=== PATIENT | female | born 1945 | race Caucasian/White ===

== ENCOUNTER 2018-11-03 18:50 | Inpatient (IN) | payer OTHER, SELFPAY ==
[2018-11-03 18:56] VITALS: BP 119/63; PULSE 122; RESP 18; TEMP 37.7; O2SAT 94
[2018-11-03 19:10] VITALS: O2SAT 94
--- NOTE | 2018-11-03 19:31 | W.ED.GENAD ---
Discharge Plan Disposition Patient Disposition: [facility] INPATIENT Condition: Serious Discharge Details Chief Complaint: Fever Clinical Impression: Pneumonia, Sepsis, Immunosuppression Primary Care Provider: Bertha,Local ED Provider: Tom Katz Home Meds and New Rx's Prescriptions: No Action Jakafi 10 mg Tablet 10 mg PO BID RF: 0 montelukast [Singulair] 10 mg Tablet 10 mg PO DAILY RF: 0 Symbicort 160-4.5 mcg/actuation Hfa Aerosol Inhaler 1 puff INHALATION BID RF: 0 Flovent HFA 110 mcg/actuation Hfa Aerosol Inhaler 2 puff INHALATION DAILY RF: 0 azithromycin 250 mg Tablet PO DAILY RF: 0 acyclovir 200 mg Capsule PO BID RF: 0 pravastatin 10 mg Tablet 10 mg PO DAILY RF: 0 potassium chloride 20 mEq Tablet Extended Release 10 meq PO BID RF: 0 erythromycin 5 mg/gram (0.5 %) Ointment ophthalmic (eye) DAILY RF: 0 Xiidra 5 % Dropperette 1 drp ophthalmic (eye) BID RF: 0 Fish Oil Retainplus Leonel 3 Adv RF: 0 Serum Eye Drops RF: 0 clobetasol 0.05 % Gel TOPICAL PRNRF: 0 triamcinolone acetonide 0.1 % Cream 1 applic TOPICAL PRN PRNRF: 0 carmustine 100 mg Recon Soln DAILY RF: 0 estradiol [Yuvafem] 10 mcg Tablet 10 mcg VAGINAL DIRECTED RF: 0 fluconazole 100 mg Tablet PO PRN PRNRF: 0 mupirocin 2 % Ointment 1 applic TOPICAL PRN PRNRF: 0 ondansetron HCl [Zofran] 4 mg Tablet PO PRN PRNRF: 0 benzonatate [Tessalon Perles] 100 mg Capsule 100 mg PO PRN PRNRF: 0 Medical Decision Making 20:22 --73-year-old female with history of cutaneous T-cell lymphoma, 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 Patient has no nuchal rigidity or signs of meningitis. Will check flu swab. Consider pneumonia and will check chest x-ray. Consider urinary tract infection, will check urinalysis. Patient is tachycardic. Normotensive. Will give IVF fulid bolus. --Labs reviewed and nondiagnostic. Mild leukocytosis of 10.83. Normal lactic acid. Mild elevation of LFTs which patient notes is chronic. Urinalysis is not consistent with UTI. Chest x-ray was reviewed and interpreted by radiology: Questionable hazy opacifications in the posterior lower lung seen only on the lateral view raise concern for possibility of developing airspace disease. Given these findings, and immunosuppression and presentation will give broad spectrum coverage for PNA with cefepime and levaquin. --Patient complaining of left shoulder pain which is been ongoing for some time but suddenly worse here tonight. ECG was reviewed and interpreted by me: Sinus tachycardia 102 bpm, short DC with DC interval of 118, normal axis, ST depressions are noted inferior laterally leads II, 3, aVF, V4 to V6. No old ECG immediately available for comparison. I will send a troponin. Given tachycardia, chest pain, and cancer hx, consider PE. Patient apparently has had a contrast dye allergy that included mild rash in the past. She subsequently had CT with contrast that did not result in any allergic reaction. There is no prep done for this more recent CT. I discussed her current presentation and benefits of CT imaging versus risks of contrast dye allergy and she provides informed consent to proceed with CT with contrast. Patient has allergy to Benadryl but is currently on prednisone. --Obtained outside hospital ECG from [facility] dated 08/05/2018, there is significant artifact but appears to be ST depressions in leads II, III, aVF and laterally V4 to V6. 23:35 --CT interpreted by radiology: IMPRESSION: 1. Scattered multifocal airspace disease which may be related to an atypical infectious pneumonic process in the appropriate clinical setting. Scattered areas of focal pneumonitis would also be in the differential. 2. Additionally, there are scattered more nodular like opacities seen throughout the lungs, detailed above, measuring up to 9 mm. Although these are most likely related to underlying airspace disease, followup is recommended to assess for resolution. For patients at low risk (minimal or absent history of smoking and of other known risk factors), recommend CT at 3-6 months, then consider CT at 18-24 months. For patients at high risk (history of smoking or of other known risk factors), recommend CT at 3-6 months, then CT at 18-24 months. (Pretty et al., Fleischner Society, 2017) 3. Other incidental findings as detailed above. I have paged patient's oncologist at [facility] - Dr. Summers. [phone]. 23:52 -- Patient reassessed. Has had some nausea. IV abx infusing. All results and plan reviewed with patient. Patient complaining of persistent left shoulder pain. Now agreeable to analgesia - will give diluadid 0.5mg IV. 23:59 -- No return call from patient's oncologist. I discussed case again with hospitalist - discussed ED presentation and course, he will admit the patient to the ICU and continue treatment for PNA/sepsis. Oncology consultation pending at time of admission. Care tranistioned to Dr. Faulkner. HPI General Mode of arrival: ambulatory. Date/Time Provider Initiated Documentation: 11/03/18 18:56. Limitations to Documentation: no limitations. Information obtained by: patient. 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 Patient notes fever since this morning. Fevers been moderate. She has associated myalgias and headache. She has been feeling generally unwell past couple days. She does note chronic cough. No dysuria. No abdominal pain. Patient has had no recent tick bites. Related Data Home Medications Medication Instructions Recorded Confirmed Fish Oil Retainplus Leonel 3 Adv 11/03/18 Serum Eye Drops 11/03/18 acyclovir mg PO BID 11/03/18 azithromycin mg PO DAILY 11/03/18 benzonatate [Tessalon Perles] 100 mg PO PRN PRN 11/03/18 11/03/18 budesonide-formoterol [Symbicort] 1 puff INHALATION BID 11/03/18 11/03/18 carmustine mg DAILY 11/03/18 clobetasol TOPICAL PRN 11/03/18 erythromycin OPHTHALMIC (EYE) DAILY 11/03/18 estradiol [Yuvafem] 10 mcg VAGINAL DIRECTED 11/03/18 11/03/18 fluconazole mg PO PRN PRN 11/03/18 fluticasone propionate [Flovent 2 puff INHALATION DAILY 11/03/18 11/03/18 HFA] lifitegrast [Xiidra] 1 drp OPHTHALMIC (EYE) BID 11/03/18 11/03/18 montelukast [Singulair] 10 mg PO DAILY 11/03/18 11/03/18 mupirocin 1 applic TOPICAL PRN PRN 11/03/18 11/03/18 ondansetron HCl [Zofran] mg PO PRN PRN 11/03/18 potassium chloride 10 meq PO BID 11/03/18 11/03/18 pravastatin 10 mg PO DAILY 11/03/18 11/03/18 ruxolitinib [Jakafi] 10 mg PO BID 11/03/18 11/03/18 triamcinolone acetonide 1 applic TOPICAL PRN PRN 11/03/18 11/03/18 Allergies Allergy/AdvReac Type Severity Reaction Status Date / Time diphenhydramine AdvReac Mild Skin Rash Unverified 11/03/18 19:06 [From Benadryl] Iodinated Contrast Media AdvReac Mild Skin Rash Unverified 11/03/18 19:06 Penicillins AdvReac Mild Skin Rash Unverified 11/03/18 19:06 General Stated Complaint: Fever FORTUNATO: 3 Review of Systems Review of Systems ROS Unobtainable: All systems reviewed & are unremarkable except as noted in HPI and below Constitutional Constitutional: Reports body ache(s) and Reports fever(s) Cardiovascular Cardiovascular: Denies dyspnea Respiratory Respiratory: Reports cough and Denies dyspnea Gastrointestinal Gastrointestinal: Denies abdominal pain Integumentary/Breasts Skin/Breast: Reports rash (Chronic unchanged) [facility] Social History Smoking/Tobacco Use Status: Never Alcohol Intake: never Substance use type: former substance user Do you feel safe at home: Yes Do you feel safe in your relationship?: Yes Exam Const General: cooperative and no acute distress HENMT Mouth: mucous membranes dry Eyes Conjunctivae: normal conjunctivae Sclera: normal sclerae Neck Neck: full ROM, no meningeal signs, trachea midline and supple Resp Auscultation: clear to auscultation bilaterally, no rales, no rhonchi and no wheezes Cardio Jugular venous pressure: no JVD Rate: tachycardic Rhythm: regular rhythm GI Palpation: soft, not firm, no guarding, no masses, not rigid and nontender Skin Rashes: rashes noted (Patchy erythema lower extremity is a patient notes is chronic) Neuro General: alert, awake and tone normal Extrem General: no edema Psych Appearance: grossly normal Mental Status: mental status grossly normal Course Vital Signs Vital signs: Vital Signs Temperature 37.7 C H 11/03/18 18:56 Pulse 122 H 11/03/18 18:56 Respiratory Rate 18 11/03/18 18:56 Blood Pressure 119/63 11/03/18 18:56 Pulse Oximetry 94 L 11/03/18 18:56 Temperature 37.7 C H 11/03/18 18:56 Temperature Source Oral 11/03/18 18:56 Pulse 122 H 11/03/18 18:56 Respiratory Rate 18 11/03/18 18:56 Blood Pressure 119/63 11/03/18 18:56 Blood Pressure Position Sitting 11/03/18 18:56 Pulse Oximetry 94 L 11/03/18 19:10 Oxygen Delivery Method Nasal Cannula 11/03/18 19:10 Oxygen Flow Rate 2 11/03/18 19:10 Pain Level 8 11/03/18 18:56
[2018-11-03 19:47] LABS: Bilirubin Negative (Negative); Blood Trace-intact (Negative); Clarity Clear (Clear); Glucose Negative (Negative); Ketones Negative (Negative); Leukocyte Esterase Negative (Negative); Nitrite Negative (Negative); Specific Gravity 1.015 (1.005-1.025); Urobilinogen 0.2 EU/dL (Up TO 0.2); pH 7.5 (5-8)
[2018-11-03] MEDS: Normal Saline Flush 10 ML SYR IVP (19:50)
[2018-11-03 19:56] LABS: Bacteria Negative HPF (Negative); C & S Indicated? No; Casts Negative LPF (Negative); Crystals Negative HPF (Negative); Epithelial Cells Rare HPF (Negative); Mucus Negative (Negative); RBC 0-2 (0-2); WBC 0-2 HPF (0-5)
[2018-11-03] MEDS: Normal Saline 500 ML 1000 ML IV (19:59)
[2018-11-03 20:01] LABS: Lactate 0.8 mmol/L (0.6-1.4)
[2018-11-03 20:04] LABS: Abs Immature Grans 0.03 k/cumm (0.0-0.09); Absolute Basophil Count 0.02 k/cumm (0.0-0.2); Absolute Eosinophil Count 0.12 k/cumm (0.0-0.7); Absolute Lymphocyte Count 0.91 k/cumm (1.2-3.4); Absolute Monocyte Count 1.04 k/cumm (0.11-0.7); Absolute Neutrophil Count 8.71 k/cumm (1.2-6.7); Basophils % 0.2; Eosinophils % 1.1; HCT 38.3 % (36.0-46.0); HGB 12.5 g/dL (12.0-15.5); Immature Grans % 0.3; Lymphocytes % 8.4; Mean Corp. HGB Concentration 32.6 g/dL (32.0-36.0); Mean Corpuscular Hemoglobin 30.5 pg (27.0-33.0); Mean Corpuscular Volume 93.4 fL (80-95); Monocytes % 9.6; Neutrophils % 80.4; Platelet Count 386 x1000/uL (130-400); RBC Distribution Width 21.3 % (11.7-14.6); White Blood Cell Count 10.83 k/cumm (4.4-10.8)
[2018-11-03 20:22] LABS: ALT 71 U/L (14-59); AST 46 U/L (15-37); Albumin 3.9 g/dL (3.4-5.0); Alkaline Phosphatase 157 U/L (46-116); Anion Gap 8.7 mmol/L (3-11); BUN 12 mg/dL (7-18); Bilirubin, Total 0.7 mg/dL (0.2-1.0); CO2 28.3 mmol/L (21.0-32.0); Calcium 9.1 mg/dL (8.5-10.1); Chloride 101 mmol/L (98-107); Estimated GFR 54.35 (mL/min/1.73m2); Glucose 115 mg/dL (70-100); Potassium 3.5 mmol/L (3.5-5.1); Sodium 138 mmol/L (136-145); Total Protein 7.8 g/dL (6.4-8.2)
[2018-11-03 20:24] LABS: Anisocytosis 2+; Hypochromasia 1+; Polychromasia Present
--- NOTE | 2018-11-03 20:45 | DI.RAD_ITS ---
EXAM: XR CHEST 2V PA LATERAL CLINICAL HISTORY: COUGH, FEVER TECHNIQUE: 2D digital imaging was performed. COMPARISON: None. FINDINGS: LUNGS: Clear. No pleural abnormality seen. HEART: Normal. MEDIASTINUM: Normal. OTHER FINDINGS:Normal. IMPRESSION: No acute pulmonary findings.
--- NOTE | 2018-11-03 20:57 | DI.VRAD_ITS ---
EXAM: XR Chest, 2 Views EXAM DATE/TIME: 11/03/2018 7:32 PM CLINICAL HISTORY: 73 years old, female; Cough and fever; Patient HX: Cough, fever, stem cell transplant patient TECHNIQUE: Imaging protocol: XR of the chest Views: 2 views. COMPARISON: No relevant prior studies available. FINDINGS: Lungs: COPD/emphysema is suggested. Questionable hazy opacifications in the posterior/lower lungs seen only on the lateral view. No other significant acute interstitial or airspace disease is noted. Pleural space: Unremarkable. No pleural effusion. No pneumothorax. Heart/Mediastinum: Unremarkable. No cardiomegaly. Bones/joints: No acute skeletal abnormality. IMPRESSION: Questionable hazy opacifications in the posterior/lower lungs seen only on the lateral view raise concern for the possibility of developing airspace disease. Dictated and Authenticated by: Thuan Mccarthy MD. Ordering:TORRI Santos MD
[2018-11-03 21:09] VITALS: BP 113/47; PULSE 102; RESP 16; TEMP 38.2; O2SAT 98
--- NOTE | 2018-11-03 21:33 | DI.CT_ITS ---
EXAM: CT CHEST PE CTA CLINICAL HISTORY: CHEST PAIN, SOB, TACHYCARDIA, LYMPHOMA TECHNIQUE: CT angiography was performed with multi slice acquisition and multi planar and 3D reconst ruction. CT angiography of the chest was performed with a bolus infusion of 57 cc of Omnipaque 350. COMPARISON: No exams were available for comparison FINDINGS: Images obtained through the upper abdomen show unremarkable appearance of visualized portions of live r, spleen, pancreas, adrenals and kidneys. No thoracic aortic aneurysm or dissection. No evidence o f pulmonary embolic disease. No mediastinal hilar or axillary or supraclavicular adenopathy. There are multiple focal areas of intrapulmonary ground-glass opacity particularly in the upper lobes but involving all lobes and there are areas of apparent focal consolidation seen involving both lowe r lobes suspicious for acute pneumonia. Some of these consolidative radiodensities are vaguely nodul ar in appearance and the possibility of underlying mass is not excluded. There is focal area of cons olidation seen adjacent to the posterior cardiac border in the left lower lobe, again a mass is not e xcluded at this site. Multiple smaller pulmonary nodules are also identified bilaterally. No pleura l effusion seen. IMPRESSION: No evidence of pulmonary embolic disease. Multiple areas of ground glass and consolidative air space opacity, suspect pneumonia. Underlying onofre plastic disease not excluded, particularly in a patient with a history of lymphoma. Follow up chest C T suggested after treatment.
[2018-11-03] MEDS: CEFEPIME 2 GM in Normal Saline 100 ML IVPB (22:10)
[2018-11-03 22:23] LABS: Creatine Kinase 135 U/L (26-192)
[2018-11-03 22:24] LABS: Troponin I < 0.05 ng/mL (0.00-0.06)
[2018-11-03 22:30] VITALS: BP 117/49; PULSE 106; RESP 20; TEMP 38.3; O2SAT 96
[2018-11-03] MEDS: Omnipaque 350 MG/ML 100 ML BTL IJ (22:36)
--- NOTE | 2018-11-03 22:53 | DI.VRAD_ITS ---
EXAM: CT Angiography Chest With Contrast EXAM DATE/TIME: 11/03/2018 9:34 PM CLINICAL HISTORY: 73 years old, female; Shortness of breath; Patient HX: Chest pain, SOB, tachycardia; Additional info: Lymphoma 12 years ago; Stem cell transplant 2y ago TECHNIQUE: Imaging protocol: Computed tomographic angiography of the chest with intravenous contrast. 3D rendering: MIP reconstructed images were created and reviewed. COMPARISON: CR XR CHEST 2V PA LATERAL 11/03/2018 8:38 PM FINDINGS: Pulmonary arteries: Normal. No pulmonary emboli. Aorta: Unremarkable. No aortic aneurysm. No aortic dissection. Lungs: Airspace consolidation in the left lower lobe. Scattered patchy/groundglass airspace opacities are appreciated in the bilateral lower lobes, right middle lobe, lingula, and bilateral upper lobes. More focal nodular opacities are seen in the right lower lobe on image 70 series 9 measuring up to 9 mm and in the left lower lobe on image 79 series 9 measuring up to 5 mm. As another example, a focal nodular opacity measuring 7.6 mm is appreciated in the right middle lobe on image 67 series 9. Pleural space: Unremarkable. No pneumothorax. No pleural effusion. Heart: Unremarkable. No cardiomegaly. No pericardial effusion. Lymph nodes: Unremarkable. No enlarged lymph nodes. Bones/joints: No acute abnormality or aggressive osseous lesion. Soft tissues: Nonspecific calcified nodule in the left breast measuring approximately 1.6 cm. Correlation with mammography is recommended if not already performed. Other findings: The visualized intra-abdominal structures demonstrate no acute findings. IMPRESSION: 1. Scattered multifocal airspace disease which may be related to an atypical infectious pneumonic process in the appropriate clinical setting. Scattered areas of focal pneumonitis would also be in the differential. 2. Additionally, there are scattered more nodular like opacities seen throughout the lungs, detailed above, measuring up to 9 mm. Although these are most likely related to underlying airspace disease, followup is recommended to assess for resolution. For patients at low risk (minimal or absent history of smoking and of other known risk factors), recommend CT at 3-6 months, then consider CT at 18-24 months. For patients at high risk (history of smoking or of other known risk factors), recommend CT at 3-6 months, then CT at 18-24 months. (Pretty et al., Fleischner Society, 2017) 3. Other incidental findings as detailed above. Dictated and Authenticated by: Thuan Mccarthy MD. Ordering:TORRI Santos MD
[2018-11-03] MEDS: levoFLOXacin 750 MG/150 ML BAG 100 MG IVPB (23:20)
[2018-11-03 23:55] VITALS: BP 102/48; PULSE 107; RESP 18; TEMP 38.3; O2SAT 92
--- NOTE | 2018-11-03 23:59 | HPE_ITS ---
Date of service: 11/03/18 Time of Service: 23:59 Assessment and Plan Assessment and plan (1) Community acquired pneumonia: Status: Acute Assessment and plan: in light of her chronic immunosuppresion and presentation w/ borderline hypotension and tachycardia suggestive of sepsis; she will be kept on broad spectrum antibiotics including Levaquin and Cefepime. I would not add Vancomycin unless we have demonstrated Staph. I will keep her on oxygen and aerosolized bronchodilators. She declined use of steroids. 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 With her elevated LFT she may even have some liver involvement as well. Qualifiers: Lymphoma site: lower extremity Qualified Code(s): C84.A5 - Cutaneous T- cell lymphoma, unspecified, lymph nodes of inguinal region and lower limb (3) Elevated transaminase level: Status: Acute Assessment and plan: may be drug related to the Jakafi or may be from T cell lymphoma. Will get US of her liver in the a.m. Further discussion can be made between her oncologist and the day hospitalist in the a.m. 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 [facility] [place] [facility] Mar[facility]. The patient and her are originally from [place] and she initially was treated at [facility] when she was diagnosed 14 yr prior but [facility] and has her [facility] cell transplant 2 yrs ago. She and her rigoberto ledezma in [place], [place] during the pickard. Today developed body aches and fever and rigors. Fever up to 101.5 along w/ chills and rigors and pleuritic left shoulder pains and dyspnea. She denies any dysuria or hematuria or abdominal pains although she has been nauseated today. 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 Workup in the ER included CXR that demonstrated questionable opacifications in the posterior/lower lungs seen on lateral CXR. Subsequent CTA of the chest did not show any PE but demonstrated airspace consolidation in the LLL and scattered patchy groundglass airspace opacities in the bilateral lower lobes, RML, lingula and bilateral upper lobes w/ more focal nodular opacities seen in the RLL and LLL and RML. She has no pleural effusions, pericardial effusions nor cardiomegaly. Labs were remarkable for leukocytosis of 10,830, no anemia, CMP with normal electrolytes and renal function but elevated LFT w/ AST 46, AST 71 and alkaline phosphatase of 157. Her lactate is normal at 0.8. UA was unremarkable (negative for nitrites, leukocyte esterase and bacteria, protein or ketones). Blood cultures were obtained and the patient was begun on Levaquin 750 mg IV and Cefepime [address] Katz attempted to reach the patient's oncologist at [facility] but did not receive a call back from Dr. Summers. The patient is also being followed locally at [facility] by Dr. Olga Patel and the patient receives photopharesis of her blood twice a week at [facility]. She returns to [place] monthly for follow up with her oncologist. The patient is now being admitted for treatment of pneumonia and possible sepsis. I advised the patient that I was adding short course of corticosteriods to her antibiotic treatment for possible sepsis but she declined to receive any steroids d/t problems she had with tapering of prednisone and from steroid induced DM. Review of Systems Constitutional Constitutional: Reports body ache(s), Reports fatigue, Reports fever(s), Reports headache(s), Reports malaise and Reports poor appetite Eyes Eyes: Reports system reviewed and no additional complaints, except as docu ENT Ears, Nose, Mouth, and Throat: Reports system reviewed and no additional complaints, except as docu and Reports headache(s) Cardiovascular Cardiovascular: Reports system reviewed and no additional complaints, except as docu Respiratory Respiratory: Reports as per HPI Gastrointestinal Gastrointestinal: Reports as per HPI Genitourinary Genitourinary: Reports system reviewed and no additional complaints, except as docu Musculoskeletal Musculoskeletal: Reports radiating pain into limb (left shoulder pains; worse w/ cough and deep breathing) Integumentary/Breasts Skin/Breast: Reports rash and Reports unusual bruising Neurologic Neurologic: Reports system reviewed and no additional complaints, except as docu and Reports headache(s) Psychiatric Psychiatric: Reports system reviewed and no additional complaints, except as docu Endocrine Endocrine: Reports system reviewed and no additional complaints, except as docu and Reports fatigue Hematologic/Lymphatic Hematologic/Lymphatic: Reports easy bruising Allergic/Immunologic Allergic/Immunologic: Reports system reviewed and no additional complaints, exce pt as docu PFSH Medical History (Updated 11/04/18 @ 03:19 by Mina Faulkner) Cutaneous T-cell lymphoma (Acute) 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 [id number]-vqik disease complicating stem cell transplant (Acute) PAF (paroxysmal atrial fibrillation) (Acute) TIA (transient ischemic attack) (Acute) Surgical History (Updated 11/04/18 @ 03:10 by Mina Faulkner) H/O stem cell transplant (Acute) Social History Smoking/Tobacco Use Status: Never Alcohol Intake: never Substance use type: former substance user Do you feel safe at home: Yes Do you feel safe in your relationship?: Yes Meds Home Medications and Allergies Home Medications Medication Instructions Recorded Confirmed Type Fish Oil Retainplus Leonel 3 Adv 11/03/18 History Serum Eye Drops 11/03/18 History acyclovir mg PO BID 11/03/18 History azithromycin mg PO DAILY 11/03/18 History benzonatate [Tessalon Perles] 100 mg PO PRN PRN 11/03/18 11/03/18 History budesonide-formoterol [Symbicort] 1 puff INHALATION BID 11/03/18 11/03/18 History carmustine mg DAILY 11/03/18 History clobetasol TOPICAL PRN 11/03/18 History erythromycin OPHTHALMIC (EYE) DAILY 11/03/18 History estradiol [Yuvafem] 10 mcg VAGINAL DIRECTED 11/03/18 11/03/18 History fluconazole mg PO PRN PRN 11/03/18 History fluticasone propionate [Flovent 2 puff INHALATION DAILY 11/03/18 11/03/18 History HFA] lifitegrast [Xiidra] 1 drp OPHTHALMIC (EYE) BID 11/03/18 11/03/18 History montelukast [Singulair] 10 mg PO DAILY 11/03/18 11/03/18 History mupirocin 1 applic TOPICAL PRN PRN 11/03/18 11/03/18 History ondansetron HCl [Zofran] mg PO PRN PRN 11/03/18 History potassium chloride 10 meq PO BID 11/03/18 11/03/18 History pravastatin 10 mg PO DAILY 11/03/18 11/03/18 History ruxolitinib [Jakafi] 10 mg PO BID 11/03/18 11/03/18 History triamcinolone acetonide 1 applic TOPICAL PRN PRN 11/03/18 11/03/18 History Allergies Allergy/AdvReac Type Severity Reaction Status Date / Time diphenhydramine AdvReac Mild Skin Rash Unverified 11/03/18 19:06 [From Benadryl] Iodinated Contrast Media AdvReac Mild Skin Rash Unverified 11/03/18 19:06 Penicillins AdvReac Mild Skin Rash Unverified 11/03/18 19:06 Exam Const General: cooperative, no acute distress, well developed and well groomed Nutritional Appearance: average body habitus Orientation: alert, awake and oriented x3 HENMT Head: normal to inspection, normocephalic and atraumatic Ears: hearing grossly normal bilaterally, external ears normal and EAC abnormal excessive cerumen bilaterally General nose exam: external nose normal, nares normal, no nasal polyps and nasal mucous membranes and turbinates normal Face and sinus: normal facial exam and sinuses nontender Mouth: oral mucosae normal, lip normal and tongue normal Throat: posterior oropharynx normal Eyes General: appearance normal, both eyes and all related structures Alignment and Position: alignment normal Periorbital: periorbital findings normal Eyelids: eyelids normal Conjunctivae: conjunctivae normal Sclera: sclerae normal Cornea: corneas normal Pupils: PERRL EOM: EOM intact bilaterally Direct ophthalmoscopy: normal light reflex Neck Neck: normal visual inspection, full ROM, no lymphadenopathy, no meningeal signs, trachea midline, supple and no JVD Thyroid: thyroid normal Carotids: normal carotid upstroke Lymphatic: no lymphadenopathy noted Resp Effort & Inspection: normal respiratory effort and able to speak in complete sentences Auscultation: crackles bilaterally at the base Cardio Jugular venous pressure: no JVD Palpation: normal PMI Rate: regular rate Rhythm: regular rhythm Heart Sounds: S1 normal, S2 normal and normal, physiologic split S2 Pulses: normal peripheral pulses GI Inspection: normal to inspection Palpation: soft and no hepatosplenomegaly Percussion: normal to percussion Auscultation: normal bowel sounds Rectal Exam - female: deferred General: No CVA tenderness Back/Spine/Pelvis Back: no CVA tenderness Cervical Spine: normal cervical lordosis Thoracic/Lumbar Spine: thoracic and lumbar spine normal to inspection Skin General skin exam: ecchymosis (over chest wall) Neuro General: alert, awake, oriented x3, moves all extremities, normal light touch, pain and propioception, no focal motor deficits and CN's II-XI intact bilaterally Extrem General: full ROM, normal capillary refill, no joint enlargement, no clubbing, cyanosis or edema, no pedal edema and no calf tenderness Psych Appearance: grossly normal Mental Status: mental status grossly normal Speech and Movement: speech and movement normal Mood: congruent mood Affect: normal affect Attitude: cooperative Thought Process: normal Thought Content: normal Insight: insight good Judgment: judgment good Results Imaging Chest x-ray: image reviewed CT scan - chest: report reviewed Labs Result diagrams: 11/03/18 19:50 11/03/18 19:50 Labs: Laboratory Results - last 24 hr 11/03/18 11/03/18 11/03/18 19:43 19:50 19:50 WBC RBC Hgb Hct MCV MCH MCHC RDW Plt Count MPV Immature Gran % Neutrophils % Lymphocytes % Monocytes % Eosinophils % Basophils % Absolute Neutrophils Absolute Lymphocytes Absolute Monocytes Absolute Eosinophils Absolute Basophils RBC Morphology Polychromasia Hypochromasia Anisocytosis Sodium 138 Potassium 3.5 Chloride 101 Carbon Dioxide 28.3 Anion Gap 8.7 BUN 12 Creatinine 1.00 Estimated GFR/1.73 m2 54.35 Glucose 115 H Lactate 0.8 Calcium 9.1 Total Bilirubin 0.7 AST 46 H ALT 71 H Alkaline Phosphatase 157 H Creatine Kinase Troponin I Total Protein 7.8 Albumin 3.9 Urine Color Yellow Urine Clarity Clear Urine pH 7.5 Ur Specific [place] 1.015 Urine Protein Negative Urine Ketones Negative Urine Blood Trace-intact H Urine Nitrite Negative Urine Bilirubin Negative Urine Urobilinogen 0.2 Ur Leukocyte Esterase Negative Urine RBC 0-2 Urine WBC 0-2 Ur Epithelial Cells Rare Urine Crystals Negative Urine Bacteria Negative Urine Casts Negative Urine Mucus Negative Ur Culture Indicated? No Urine Glucose Negative 11/03/18 11/03/18 19:50 21:54 WBC 10.83 H RBC 4.10 Hgb 12.5 Hct 38.3 MCV 93.4 MCH 30.5 MCHC 32.6 RDW 21.3 H Plt Count 386 MPV 9.0 Immature Gran % 0.3 Neutrophils % 80.4 Lymphocytes % 8.4 Monocytes % 9.6 Eosinophils % 1.1 Basophils % 0.2 Absolute Neutrophils 8.71 H Absolute Lymphocytes 0.91 L Absolute Monocytes 1.04 H Absolute Eosinophils 0.12 Absolute Basophils 0.02 RBC Morphology See below Polychromasia Present Hypochromasia 1+ Anisocytosis 2+ Sodium Potassium Chloride Carbon Dioxide Anion Gap BUN Creatinine Estimated GFR/1.73 m2 Glucose Lactate Calcium Total Bilirubin AST ALT Alkaline Phosphatase Creatine Kinase 135 Troponin I < 0.05 Total Protein Albumin Urine Color Urine Clarity Urine pH Ur Specific [place] Urine Protein Urine Ketones Urine Blood Urine Nitrite Urine Bilirubin Urine Urobilinogen Ur Leukocyte Esterase Urine RBC Urine WBC Ur Epithelial Cells Urine Crystals Urine Bacteria Urine Casts Urine Mucus Ur Culture Indicated? Urine Glucose Last Vital Signs Temp 38.3 C H 11/03/18 23:55 Pulse 107 H 11/03/18 23:55 Resp 18 11/03/18 23:55 BP 102/48 L 11/03/18 23:55 Pulse Ox 92 L 11/03/18 23:55
[2018-11-04] VITALS (26 sets, daily range): BP systolic 89–121; BP diastolic 39–69; PULSE 86–107; RESP 18–20; TEMP 36.5–38.3; O2SAT 92–97
[2018-11-04] MEDS: HYDROmorphone 2 MG/ML VIAL 0.5 MG IVP (00:02)
[2018-11-04] MEDS: Normal Saline 1,000 ML 125 ML IV ×3 (02:18→18:38)
[2018-11-04] MEDS: Hydrocortisone SOD SUC. 100 MG VIAL IVP (02:21)
[2018-11-04 02:47] LABS: Troponin I < 0.05 ng/mL (0.00-0.06)
[2018-11-04 02:59] LABS: Procalcitonin 0.1 ng/mL
[2018-11-04 06:30] LABS: ALT 51 U/L (14-59); AST 29 U/L (15-37); Alkaline Phosphatase 118 U/L (46-116); Anion Gap 8.8 mmol/L (3-11); BUN 10 mg/dL (7-18); Bilirubin, Total 0.7 mg/dL (0.2-1.0); CO2 25.2 mmol/L (21.0-32.0); CREATININE 0.94 mg/dL (0.55-1.02); Calcium 8.2 mg/dL (8.5-10.1); Chloride 103 mmol/L (98-107); Estimated GFR 58.37 (mL/min/1.73m2); Glucose 167 mg/dL (70-100); Potassium 3.6 mmol/L (3.5-5.1); Sodium 137 mmol/L (136-145); Total Protein 6.3 g/dL (6.4-8.2)
[2018-11-04 06:35] LABS: Troponin I < 0.05 ng/mL (0.00-0.06)
[2018-11-04 06:53] LABS: Abs Immature Grans 0.04 k/cumm (0.0-0.09); Absolute Basophil Count 0.02 k/cumm (0.0-0.2); Absolute Eosinophil Count 0.04 k/cumm (0.0-0.7); Absolute Lymphocyte Count 0.41 k/cumm (1.2-3.4); Absolute Monocyte Count 0.64 k/cumm (0.11-0.7); Basophils % 0.2; Eosinophils % 0.3; HCT 34.8 % (36.0-46.0); Immature Grans % 0.3; Lymphocytes % 3.4; Mean Corp. HGB Concentration 31.6 g/dL (32.0-36.0); Mean Corpuscular Hemoglobin 29.7 pg (27.0-33.0); Mean Corpuscular Volume 94.1 fL (80-95); Mean Platelet Volume 9.9 fL (8.0-11.0); Monocytes % 5.3; Neutrophils % 90.5; Platelet Count 354 x1000/uL (130-400); RBC Distribution Width 21.1 % (11.7-14.6); White Blood Cell Count 12.15 k/cumm (4.4-10.8)
--- NOTE | 2018-11-04 08:19 | PDOC.CMIN ---
- If Service Date Differs Date of service: 11/04/18 Time of Service: 08:19 Care Management Initial Assess REASON FOR HOSPITALIZATION:: Community acquired pneumonia PAST MEDICAL HISTORY/PAST SURGICAL HISTORY:: Medical History: Cutaneous T-cell lymphoma (Acute). 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 Zjkdz-knnxdo-fymd disease complicating stem cell transplant (Acute). PAF (paroxysmal atrial fibrillation) (Acute). TIA (transient ischemic attack) (Acute). Surgical History: H/O stem cell transplant (Acute) PREVIOUS FUNCTIONAL STATUS/SOCIAL/FAMILY SUPPORTS:: Nicolás lives in [facility] in a single family home with her Luis Felipe. She describes her home as off the grid. Nicolás also lives in [place] with her daughter part of the time. She received her stem cell transplant there and needs frequent follow up. Nicolás and Luis Felipe also have one son ; there are no grandchildren. Nicolás is totally independent in the community and with all of her care and activities. 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 CURRENT FUNCTIONAL STATUS:: Nicolás was sitting up in bed when CM met with her. She stated that she really needs to get out of the hospital as she has many pressing things she needs to do at home. These include tending to a complicated eye medication regimen, pulmonary toilet and walking. She will discuss this with Dr. Schumacher. 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 ADVANCE DIRECTIVES:: None on file Has patient been provided with information about the portal?: No Did the patient sign up for the portal?: No CODE STATUS:: Full Code INSURANCE COVERAGE / FINANCIAL ISSUES:: [facility] CURRENT HOME/COMMUNITY SERVICES/EQUIPMENT:: none currently PRIMARY CARE PHYSICIAN:: Caitlin Patel POTENTIAL DISCHARGE NEEDS:: Follow up with PCP and discharge plan of care PATIENT/FAMILY EDUCATION NEEDS:: Discharge plan, limitations, follow up plan and Ask Me Three TRANSPORTATION:: via private vehicle with when ready PLAN:: Nicolás is currently ICU level of care. She is receiving IV antibiotics for community acquired pneumonia. She will return home with no services. CM will continue to provide support to patient, family and discharge planning process.
[2018-11-04] MEDS: Enoxaparin 40 MG/0.4 ML SYR SC (09:46)
[2018-11-04] MEDS: Normal Saline Flush 10 ML SYR IVP (09:48)
[2018-11-04] MEDS: Montelukast 10 MG TAB PO (09:52)
[2018-11-04] MEDS: Potassium Chloride 10 MEQ TABCR PO ×2 (09:52→20:28)
[2018-11-04] MEDS: Budesonide/Formoterol 160/4.5 6 GM 60 PUFF INH IH ×2 (10:06→20:24)
[2018-11-04] MEDS: Acyclovir 400 MG TAB 800 MG PO ×2 (11:17→20:24)
[2018-11-04] MEDS: Azithromycin 250 MG TAB PO (11:17)
[2018-11-04] MEDS: CEFEPIME 2 GM in Normal Saline 100 ML IVPB ×2 (11:18→21:42)
--- NOTE | 2018-11-04 12:03 | PHARADMIT ---
Addendum entered by Karen Orozco 11/05/18 11:35: Pharmacy Note Subjective pt immunosupressed Objective vs ok, lytes ok, H/H down to 9.5/30.9, BC no growth 24 hrs Assessment abx day 2, Scr improved. levofloxacin frequency changed, cefepime no change needed. symbicort order changed to what pt states she does at home, azithromycin from home list continued. Plan expect transfer to [facility] today, watch SCr, BC results Original Note: Admission Pharmacy Clinical Review ATYPICAL PNEUMONIA (CAP) ?septic criteria Code Status Current Weight 51.3 kg Renally Cleared and Narrow Therapeutic Index Meds CrCl~43ml/min QTc Value / Action Taken QTC 427 (Azithromycin-home med, Levaquin, Zofran) BP Control, Fever BP 93/52 Afebrile now (Tmax 38.3) overnight Electrolytes reviewed WNL DVT Prophylaxis Lovenox 40mg Opiate Usage / Scheduled Bowel Regimen Ordered yes/yes Plt/SCr for Heparin / Enoxaparin Plt 354 scR 0.94 INR for Warfarin H/H stable, WBC/Bands H/H 11.0/34.8 WBC 12.15 Antibiotic appropriateness Cefepime Q12h, Levaquin Q48h adjusted for renal function watch for improved SCr Cultures and Sensitivities blood cultures pending Surgical ABX d/c within 24 hr DM control / Insulin Dosing BG 167 Heart Failure (Check EF%) (ARCHIE's, B-Block, Diuretics) IV to PO Switch Home Meds Reviewed Pt's own Flovent HFA 2 puffs BID in addition to symbicort, patient insisted she takes and wants both per RT, and Jakafi Home Meds Not Ordered Carmustine is a topical oint for leg-needs to be stored in refrigerator, pt feels she doesn't need it while here Clobetasol, Triamcinolone cream-MD may order later after speaking w/pt Estradiol tabs 2x/week Fish oil, Fluconazole, Lifitegrast eye (Xiidra)- bringing in later Mupirocin, Pravastatin Comments Pt has graft vs host disease, is immunosuppresed, chronic lung disease, being treated for T-cell lymphoma Lives in [place] for the [place] (from [place]) CT chest: atypical infectious pneumonic process and other opacities pt appears to be refusing some meds
--- NOTE | 2018-11-04 14:36 | CHAPLAIN ---
Nicolás was resting in bed when I visited. She talked about living in [place] and [place] with her daughter. She said her daughter was part of her support team when she had her stem cell transplant in [place], where she receives most of her medical care. She came here because it was an emergency, she said. Her is here with her. I explained my role and offered support.
[2018-11-04] MEDS: Acetaminophen 325 MG TAB PO ×2 (17:34→22:42)
[2018-11-05] VITALS (19 sets, daily range): BP systolic 107–146; BP diastolic 59–74; PULSE 71–95; RESP 18–20; TEMP 36.9–37.3; O2SAT 91–98
[2018-11-05] MEDS: Normal Saline 1,000 ML 125 ML IV ×2 (02:09→10:52)
[2018-11-05 07:14] LABS: Abs Immature Grans 0.02 k/cumm (0.0-0.09); Absolute Basophil Count 0.01 k/cumm (0.0-0.2); Absolute Monocyte Count 0.75 k/cumm (0.11-0.7); Absolute Neutrophil Count 5.39 k/cumm (1.2-6.7); Basophils % 0.1; Eosinophils % 1.4; HCT 30.9 % (36.0-46.0); HGB 9.5 g/dL (12.0-15.5); Immature Grans % 0.3; Mean Corp. HGB Concentration 30.7 g/dL (32.0-36.0); Mean Corpuscular Hemoglobin 29.6 pg (27.0-33.0); Mean Corpuscular Volume 96.3 fL (80-95); Mean Platelet Volume 9.7 fL (8.0-11.0); Monocytes % 10.8; Neutrophils % 77.4; Platelet Count 344 x1000/uL (130-400); RBC 3.21 m/cumm (4.00-5.20); RBC Distribution Width 21.2 % (11.7-14.6); White Blood Cell Count 6.97 k/cumm (4.4-10.8)
[2018-11-05 07:23] LABS: Anion Gap 7.9 mmol/L (3-11); BUN 7 mg/dL (7-18); CO2 25.1 mmol/L (21.0-32.0); CREATININE 0.73 mg/dL (0.55-1.02); Calcium 8.1 mg/dL (8.5-10.1); Chloride 113 mmol/L (98-107); Glucose 113 mg/dL (70-100); Magnesium 2.1 mg/dL (1.8-2.4); Potassium 4.1 mmol/L (3.5-5.1); Sodium 146 mmol/L (136-145)
[2018-11-05 07:36] LABS: Anisocytosis 2+; Diff Comment RBC Morph Reviewed; Hypochromasia 1+; Polychromasia Present
[2018-11-05] MEDS: Budesonide/Formoterol 160/4.5 6 GM 60 PUFF INH IH ×2 (08:15→20:56)
[2018-11-05] MEDS: Acyclovir 400 MG TAB 800 MG PO ×2 (08:35→20:57)
[2018-11-05] MEDS: Potassium Chloride 10 MEQ TABCR PO ×2 (08:36→20:57)
[2018-11-05] MEDS: Lactobacillus Acidophilus CAP 1 CAP PO ×2 (08:39→20:57)
[2018-11-05] MEDS: Enoxaparin 40 MG/0.4 ML SYR SC (08:41)
[2018-11-05] MEDS: Azithromycin 250 MG TAB PO (08:47)
[2018-11-05] MEDS: Normal Saline Flush 10 ML SYR (08:52)
[2018-11-05] MEDS: CEFEPIME 2 GM in Normal Saline 100 ML IVPB ×2 (10:09→22:19)
--- NOTE | 2018-11-05 11:15 | DI.RAD_ITS ---
EXAM: XR SHOULDER LT COMPLETE 2+V INDICATION: Left shoulder pain. COMPARISON: No exams were available for comparison TECHNIQUE: 2D digital imaging was performed. FINDINGS: The bony structures are normally mineralized. The glenohumeral joint is well-maintained. There are mi ld degenerative changes involving the AC joint.
[2018-11-05] MEDS: levoFLOXacin 750 MG/150 ML BAG 100 MG IVPB (12:10)
--- NOTE | 2018-11-05 12:37 | W.PM.PROGNOT ---
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 Unfortunately culture results are not telling, and she is not producing sputum. According to conversation with Dr. Summers, patient's oncologist, she has a history of viral pulmonary infections in the past requiring supplemental oxygen - currently patient remains off O2. - Continue Cefepime and Levofloxacin, currently day #2. Procalcitonin use likely limited in patient given relative immunosuppression. Continue to monitor culture results Qualifiers: Laterality: left Lung location: lower lobe of lung Qualified Code(s): J18.1 - Lobar pneumonia, unspecified organism (2) [id number] disease complicating stem cell transplant: Status: Acute Assessment and plan: Noted, with subsequent development of pulmonary disease per history. (3) Cutaneous T-cell lymphoma: Status: Acute Assessment and plan: Following with Oncology at [facility] locally. Qualifiers: Lymphoma site: lower extremity Qualified Code(s): C84.A5 - Cutaneous T-cell lymphoma, unspecified, lymph nodes of inguinal region and lower limb (4) Elevated transaminase level: Status: Acute Assessment and plan: Likely related to acute illness - mild and resolved with IVFs. (5) Shoulder pain: Status: Acute Assessment and plan: Unsure of etiology - no abnormality on CT, and Xray performed with official result pending. (6) Anemia: Status: Chronic Assessment and plan: Drop in Hgb in setting of fluid resuscitation. Check FOBT, Iron studies, B12, FA, and TSH. (7) DVT prophylaxis: Status: Acute Assessment and plan: SC Lovenox. On PPI therapy for GI Prophylaxis as well. 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 Mrs. 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 She follows with Oncology at [facility], and [facility] locally with whom she receives Photopharesis twice weekly. The patient's other medical history includes prior urosepsis and a history of C. Diff in the past. She reported to the ED with a sudden onset of fevers, generalized body aches, and rigors. She was initially found to be febrile, and her work-up was significant for a mild initial leukocytosis, mildly elevated LFTs, normal kidney function and electrolytes, and a normal lactate. Her imaging with CT of the chest was significant for multiple areas of ground glass and consolidative air space opacities, with suspected pneumonia as etiology. Per discussion with patient's oncologist, she has had prior history of viral pulmonary infections in the past. She was referred for admission for further evaluation and treatment. Mrs. Ely was started on broad spectrum antibiotic coverage, and since admission has defervesced, with a normalized WBC. She feels improved, although not yet at baseline. Her blood cultures remain negative, and rapid influenza was negative as well. She is complaining of left shoulder pain, with onset at time of her symptoms. This morning she has become mildly anemic. No overnight events reported. Remains afebrile. Exam Narrative Exam Narrative: General: Patient appears comfortable, AAOX3, NAD Neck: Supple CV: Regular, nontachycardic, S1S2, No rubs, murmurs, or gallops. Pulmonary: Clear to auscultation bilaterally, no crackles, wheezing, or rhonchi Abdomen: + Bowel Sounds, soft, nontender, nondistended Vascular: No lower extremity edema Musculoskeletal: No pain on palpation of left shoulder joint or surrounding soft tissue. + FROM, without induced pain or discomfort. Psych: Normal mood and affect. Objective Objective Clinical Data: Abnormal lab results 11/05/18 11/05/18 Range/Units 06:15 06:15 RBC 3.21 L (4.00-5.20) m/cumm Hgb 9.5 L (12.0-15.5) g/dL Hct 30.9 L (36.0-46.0) % MCV 96.3 H (80-95) fL MCHC 30.7 L (32.0-36.0) g/dL RDW 21.2 H (11.7-14.6) % Absolute Lymphocytes 0.70 L (1.2-3.4) k/cumm Absolute Monocytes 0.75 H (0.11-0.7) k/cumm Sodium 146 H (136-145) mmol/L Chloride 113 H (98-107) mmol/L Glucose 113 H (70-100) mg/dL Calcium 8.1 L (8.5-10.1) mg/dL Vital Signs Temperature 37.1 C 11/05/18 10:17 Temperature Source Temporal Artery Scan 11/05/18 10:17 Pulse 90 11/05/18 10:17 Respiratory Rate 18 11/05/18 10:17 Respiratory Effort 11/05/18 08:00 Respiratory Depth Normal 11/05/18 02:00 Respiratory Pattern Normal 11/05/18 08:00 Blood Pressure 137/70 11/05/18 10:17 Blood Pressure Mean 80 11/05/18 08:07 Blood Pressure Position Sitting 11/05/18 08:00 Pulse Oximetry 96 11/05/18 10:17 Oxygen Delivery Method Room Air 11/05/18 10:17 Oxygen Flow Rate 0 11/05/18 10:17 Pain Level 3 11/05/18 10:17 Comment 11/05/18 10:17 Intake & Output 11/04/18 11/05/18 11/05/18 23:59 11:59 23:59 Intake Total 1466.667 / 2941.667 2279.583 / 2279.583 Output Total 1550 / 3300 1600 / 1600 Balance -83.333 / -358.333 679.583 / 679.583 Weight 51.6 kg Intake: IV 916.667 / 2291.667 2039.583 / 2039.583 Oral 550 / 650 240 / 240 Output: Urine 1550 / 3300 1600 / 1600 Other: Urine Color Yellow Yellow Urine Appearance Clear Clear Urine Odor Normal Comment Mixed with stool. with some loose stool Stool Occult Blood Negative Negative Stool Size Large Small Stool Characteristics Soft Liquid Formed Brown Voiding Methods Bedside Commode Bedside Commode Laboratory Results WBC 6.97 k/cumm (4.4-10.8) D 11/05/18 06:15 RBC 3.21 m/cumm (4.00-5.20) L 11/05/18 06:15 Hgb 9.5 g/dL (12.0-15.5) L 11/05/18 06:15 Hct 30.9 % (36.0-46.0) L 11/05/18 06:15 MCV 96.3 fL (80-95) H 11/05/18 06:15 MCH 29.6 pg (27.0-33.0) 11/05/18 06:15 MCHC 30.7 g/dL (32.0-36.0) L 11/05/18 06:15 RDW 21.2 % (11.7-14.6) H 11/05/18 06:15 Plt Count 344 x1000/uL (130-400) 11/05/18 06:15 MPV 9.7 fL (8.0-11.0) 11/05/18 06:15 Immature Gran % 0.3 11/05/18 06:15 Neutrophils % 77.4 11/05/18 06:15 Lymphocytes % 10.0 11/05/18 06:15 Monocytes % 10.8 11/05/18 06:15 Eosinophils % 1.4 11/05/18 06:15 Basophils % 0.1 11/05/18 06:15 Absolute Neutrophils 5.39 k/cumm (1.2-6.7) 11/05/18 06:15 Absolute Lymphocytes 0.70 k/cumm (1.2-3.4) L 11/05/18 06:15 Absolute Monocytes 0.75 k/cumm (0.11-0.7) H 11/05/18 06:15 Absolute Eosinophils 0.10 k/cumm (0.0-0.7) 11/05/18 06:15 Absolute Basophils 0.01 k/cumm (0.0-0.2) 11/05/18 06:15 Differential Comment Rbc morph reviewed 11/05/18 06:15 RBC Morphology See below 11/05/18 06:15 Polychromasia Present 11/05/18 06:15 Hypochromasia 1+ 11/05/18 06:15 Anisocytosis 2+ 11/05/18 06:15 Sodium 146 mmol/L (136-145) H 11/05/18 06:15 Potassium 4.1 mmol/L (3.5-5.1) 11/05/18 06:15 Chloride 113 mmol/L (98-107) H 11/05/18 06:15 Carbon Dioxide 25.1 mmol/L (21.0-32.0) 11/05/18 06:15 Anion Gap 7.9 mmol/L (3-11) 11/05/18 06:15 BUN 7 mg/dL (7-18) 11/05/18 06:15 Creatinine 0.73 mg/dL (0.55-1.02) 11/05/18 06:15 Estimated GFR/1.73 m2 >= 60.00 (mL/min/1.73m2) 11/05/18 06:15 Glucose 113 mg/dL (70-100) H 11/05/18 06:15 Lactate 0.8 mmol/L (0.6-1.4) 11/03/18 19:50 Calcium 8.1 mg/dL (8.5-10.1) L 11/05/18 06:15 Magnesium 2.1 mg/dL (1.8-2.4) 11/05/18 06:15 Total Bilirubin 0.7 mg/dL (0.2-1.0) 11/04/18 05:45 AST 29 U/L (15-37) 11/04/18 05:45 ALT 51 U/L (14-59) 11/04/18 05:45 Alkaline Phosphatase 118 U/L (46-116) H 11/04/18 05:45 Creatine Kinase 135 U/L (26-192) 11/03/18 21:54 Troponin I < 0.05 ng/mL (0.00-0.06) 11/04/18 05:45 Total Protein 6.3 g/dL (6.4-8.2) L 11/04/18 05:45 Albumin 3.0 g/dL (3.4-5.0) L 11/04/18 05:45 Procalcitonin 0.1 ng/mL 11/04/18 02:10 Urine Color Yellow (Yellow) 11/03/18 19:43 Urine Clarity Clear (Clear) 11/03/18 19:43 Urine pH 7.5 (5-8) 11/03/18 19:43 Ur Specific [place] 1.015 (1.005-1.025) 11/03/18 19:43 Urine Protein Negative mg/dL (Negative) 11/03/18 19:43 Urine Ketones Negative mg/dL (Negative) 11/03/18 19:43 Urine Blood Trace-intact (Negative) H 11/03/18 19:43 Urine Nitrite Negative (Negative) 11/03/18 19:43 Urine Bilirubin Negative (Negative) 11/03/18 19:43 Urine Urobilinogen 0.2 EU/dL (Up TO 0.2) 11/03/18 19:43 Ur Leukocyte Esterase Negative (Negative) 11/03/18 19:43 Urine RBC 0-2 (0-2) 11/03/18 19:43 Urine WBC 0-2 HPF (0-5) 11/03/18 19:43 Ur Epithelial Cells Rare HPF (Negative) 11/03/18 19:43 Urine Crystals Negative HPF (Negative) 11/03/18 19:43 Urine Bacteria Negative HPF (Negative) 11/03/18 19:43 Urine Casts Negative LPF (Negative) 11/03/18 19:43 Urine Mucus Negative (Negative) 11/03/18 19:43 Ur Culture Indicated? No 11/03/18 19:43 Urine Glucose Negative mg/dL (Negative) 11/03/18 19:43
--- NOTE | 2018-11-05 14:16 | PDOC.CMPRO ---
- If Service Date Differs Date of service: 11/05/18 Time of Service: 14:16 Care Management Progress Note S/O: Nicolás was sitting up in a chair, dressed in sweat pants and shirt when CM came to see her. She states she is feeling much better than when she arrived. She stated that she is concerned because her Hct has been dropping every day and it needs to be above 26 in order for her to receive her photophoresis treatment next Saturday. It is currently 30. CM communicated her concern to the provider. A: Nicolás is a 73 year old woman admitted with community acquired pneumonia. P: Nicolás has been moved to Med-Surg as she continues to improve. She will be discharged home with no new services when she completes 5 full days of IV antibiotics. CM will continue to provide support to patient, family and discharge planning needs.
--- NOTE | 2018-11-05 14:29 | NUR.NOTE ---
Nursing Note: Patient transferred from ICU via ambulation at approximately 1330. VSS See worklist. Heart rate regular. Apical heart rate 82. Right and left posterior lower lobe crackles at auscultation. Right posterior middle lobe diminished. Anterior lung sounds clear. Normal bowel sounds. Patient reports loose stools. White spot noted on left cm and forehead. Positive radial and pedal pulses bilaterally. Ambulates with standby assist and no device.
[2018-11-05] MEDS: Montelukast 10 MG TAB PO (17:59)
[2018-11-05] MEDS: Benzonatate 100 MG CAP PO (18:08)
[2018-11-05] MEDS: Acetaminophen 325 MG TAB PO (21:04)
[2018-11-05] MEDS: Normal Saline Flush 10 ML SYR IVP (22:19)
[2018-11-06 00:48] VITALS: BP 107/69; PULSE 86; RESP 19; TEMP 37.4; O2SAT 98
[2018-11-06 07:35] LABS: Absolute Basophil Count 0.02 k/cumm (0.0-0.2); Absolute Eosinophil Count 0.17 k/cumm (0.0-0.7); Absolute Lymphocyte Count 0.69 k/cumm (1.2-3.4); Absolute Monocyte Count 0.67 k/cumm (0.11-0.7); Basophils % 0.4; Eosinophils % 3.2; HCT 32.4 % (36.0-46.0); HGB 10.4 g/dL (12.0-15.5); Lymphocytes % 12.9; Mean Corp. HGB Concentration 32.1 g/dL (32.0-36.0); Mean Corpuscular Hemoglobin 30.3 pg (27.0-33.0); Mean Corpuscular Volume 94.5 fL (80-95); Mean Platelet Volume 9.5 fL (8.0-11.0); Monocytes % 12.5; Platelet Count 367 x1000/uL (130-400); RBC 3.43 m/cumm (4.00-5.20); RBC Distribution Width 20.7 % (11.7-14.6); White Blood Cell Count 5.35 k/cumm (4.4-10.8)
[2018-11-06] MEDS: Acyclovir 400 MG TAB 800 MG PO ×2 (07:50→19:31)
[2018-11-06] MEDS: Lactobacillus Acidophilus CAP 1 CAP PO ×2 (07:50→19:31)
[2018-11-06] MEDS: Potassium Chloride 10 MEQ TABCR PO ×2 (07:51→19:31)
[2018-11-06] MEDS: Azithromycin 250 MG TAB PO (07:51)
[2018-11-06] MEDS: Enoxaparin 40 MG/0.4 ML SYR SC (07:55)
[2018-11-06] MEDS: Budesonide/Formoterol 160/4.5 6 GM 60 PUFF INH IH ×2 (07:57→19:30)
[2018-11-06 08:00] LABS: Anion Gap 10.9 mmol/L (3-11); BUN 7 mg/dL (7-18); CO2 26.1 mmol/L (21.0-32.0); CREATININE 0.77 mg/dL (0.55-1.02); Chloride 107 mmol/L (98-107); Glucose 106 mg/dL (70-100); Magnesium 2.1 mg/dL (1.8-2.4); Potassium 3.8 mmol/L (3.5-5.1); Sodium 144 mmol/L (136-145); TSH 2.37 uIU/mL (0.36-3.74)
[2018-11-06 08:13] LABS: Iron 31 ug/dL (50-175); Total Iron Binding Capacity 316 ug/dL (250-450); Transferrin Sat 10 % (15-50)
[2018-11-06 08:17] LABS: Ferritin 95 ng/mL (8-388); Folate 19.5 ng/mL (8.6-20.0); Vitamin B12 1227 pg/mL (193-986)
[2018-11-06 08:52] VITALS: BP 122/77; PULSE 89; RESP 18; TEMP 36.6; O2SAT 91
--- NOTE | 2018-11-06 10:12 | CMPROGNOTE_ITS ---
Care Management Progress Note S/O: Nicolás was lying in bed when CM met with her, she has been ambulating in the hallways independently. Nicolás continues to advocate for discharging from [facility] tomorrow. MD made aware, Nicolás had discussed this in length with MD as she reports that she would like to return to [place] to see her oncologist soon. Nicolás reported feeling well informed regarding her treatment plan. CM continues to follow. A: Nicolás is a 73 year old woman admitted to [facility] 11/04/18 with community acquired pneumonia. P: Nicolás continues to improve per MD, anticipate she will discharge home tomorrow. CM will continue to provide support to patient, family and discharge planning needs.
[2018-11-06] MEDS: Normal Saline Flush 10 ML SYR IVP ×3 (11:18→13:06)
[2018-11-06] MEDS: CEFEPIME 2 GM in Normal Saline 100 ML IVPB ×2 (11:18→22:00)
[2018-11-06] MEDS: levoFLOXacin 750 MG/150 ML BAG 100 MG IVPB (13:06)
--- NOTE | 2018-11-06 13:22 | PGE_ITS ---
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 Unfortunately culture results are not telling, and she is not producing sputum. According to conversation with Dr. Summers, patient's oncologist, she has a history of viral pulmonary infections in the past requiring supplemental oxygen - patient continues to remain off O2. - Continue Cefepime and Levofloxacin, currently day #3. Procalcitonin use likely limited in patient given relative immunosuppression. Continue to monitor culture results Qualifiers: Laterality: left Lung location: lower lobe of lung Qualified Code(s): J18.1 - Lobar pneumonia, unspecified organism (2) [id number] disease complicating stem cell transplant: Status: Acute Assessment and plan: Noted, with subsequent development of pulmonary disease per history. (3) Cutaneous T-cell lymphoma: Status: Acute Assessment and plan: Following with Oncology at [facility] locally. Qualifiers: Lymphoma site: lower extremity Qualified Code(s): C84.A5 - Cutaneous T- cell lymphoma, unspecified, lymph nodes of inguinal region and lower limb (4) Elevated transaminase level: Status: Acute Assessment and plan: Likely related to acute illness - mild and resolved with IVFs. (5) Shoulder pain: Status: Acute Assessment and plan: Unsure of etiology - no abnormality on CT, and Xray p erformed without significant abnormality (mild degenerative changes only). Will request PT eval as well. (6) Anemia: Status: Chronic Assessment and plan: Drop in Hgb in setting of fluid resuscitation. Stool negative for occult blood, with normal iron and TIBC, Ferritin of 95. Interestingly patient's B12 is elevated and she admits to high levels of red meat and organ meat intake inorder to increase her red blood count. FA and TSH normal. (7) Diarrhea: Status: Acute Assessment and plan: Likely antibiotic related, and patient endorses a history of diarrhea while receiving antibiotics. However, she also has a history of CDI - will check C.Diff screen now. (8) DVT prophylaxis: Status: Acute Assessment and plan: SC Lovenox. On PPI therapy for GI Prophylaxis as well. 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 Mrs. 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 She follows with Oncology at [facility], and [facility] [place] with whom she receives Photopharesis twice weekly. The patient's other medical history includes prior urosepsis and a history of C. Diff in the past. She reported to the ED with a sudden onset of fevers, generalized body aches, and rigors. She was initially found to be febrile, and her work-up was significant for a mild initial leukocytosis, mildly elevated LFTs, normal kidney function and electrolytes, and a normal lactate. Her imaging with CT of the chest was significant for multiple areas of ground glass and consolidative air space opacities, with suspected pneumonia as etiology. Per discussion with patient's oncologist, she has had prior history of viral pulmonary infections in the past. She was referred for admission for further evaluation and treatment. Mrs. Ely was started on broad spectrum antibiotic coverage, and since admission has defervesced, with a normalized WBC. She feels improved, although not yet at baseline. Her blood cultures remain negative, and rapid influenza was negative as well. Although she verbally reports an 'elevated temperature' overnight, her TMax was 37.4. She is complaining of left shoulder pain, with onset at time of her symptoms - shoulder xray showed mild degenerative changes only, and original admission CT showed no evidence of soft tissue or bony abnormalities. This morning the patient's Hgb has improved with cessation of IVFs. She is reporting 5-6 watery bowel movements daily, and attributing it to antibiotic therapy. No overnight events reported. Remains afebrile. Exam Narrative Exam Narrative: General: Patient appears comfortable, AAOX3, NAD Neck: Supple CV: Regular, nontachycardic, S1S2, No rubs, murmurs, or gallops. Pulmonary: Clear to auscultation bilaterally, no crackles, wheezing, or rhonchi Abdomen: + Bowel Sounds, soft, nontender, nondistended Vascular: No lower extremity edema Musculoskeletal: Prior exam with no pain on palpation of left shoulder joint or surrounding soft tissue. + FROM, without induced pain or discomfort. Psych: Normal mood and affect. Objective Objective Clinical Data: Abnormal lab results 11/06/18 11/06/18 11/06/18 Range/Units 06:50 06:50 06:50 RBC 3.43 L (4.00-5.20) m/cumm Hgb 10.4 L (12.0-15.5) g/dL Hct 32.4 L (36.0-46.0) % RDW 20.7 H (11.7-14.6) % Absolute Lymphocytes 0.69 L (1.2-3.4) k/cumm Glucose 106 H (70-100) mg/dL Iron (50-175) ug/dL Transferrin % Sat (15-50) % Vitamin B12 1227 H (193-986) pg/mL 11/06/18 Range/Units 06:50 RBC (4.00-5.20) m/cumm Hgb (12.0-15.5) g/dL Hct (36.0-46.0) % RDW (11.7-14.6) % Absolute Lymphocytes (1.2-3.4) k/cumm Glucose (70-100) mg/dL Iron 31 L (50-175) ug/dL Transferrin % Sat 10 L (15-50) % Vitamin B12 (193-986) pg/mL Vital Signs Temperature 36.6 C 11/06/18 08:52 Temperature Source Tympanic 11/06/18 00:48 Pulse 89 11/06/18 08:52 Pulse Rhythm Regular 11/06/18 03:15 Respiratory Rate 18 11/06/18 08:52 Respiratory Effort Non-Labored 11/06/18 03:15 Respiratory Depth Normal 11/06/18 03:15 Respiratory Pattern Normal 11/06/18 03:15 Blood Pressure 122/77 11/06/18 08:52 Blood Pressure Mean 82 11/05/18 12:09 Blood Pressure Position Supine 11/05/18 12:07 Pulse Oximetry 91 L 11/06/18 08:52 Oxygen Delivery Method Room Air 11/06/18 08:52 Oxygen Flow Rate 0 11/06/18 08:52 Pain Level 2 11/06/18 08:52 Comment 11/05/18 10:17 Intake & Output 11/05/18 11/06/18 11/06/18 23:59 11:59 23:59 Intake Total 1439.167 / 3718.750 230 / 230 Balance 1439.167 / 1768.750 230 / 230 Weight 50.8 kg Intake: IV 879.167 / 2918.750 110 / 110 Oral 560 / 800 120 / 120 Other: Urine Color Yellow Urine Appearance Clear Clear Urine Odor Normal Comment pt states that she is voiding large amounts Stool Occult Blood Negative Stool Size Small Stool Characteristics Soft Voiding Methods Toilet Laboratory Results WBC 5.35 k/cumm (4.4-10.8) 11/06/18 06:50 RBC 3.43 m/cumm (4.00-5.20) L 11/06/18 06:50 Hgb 10.4 g/dL (12.0-15.5) L 11/06/18 06:50 Hct 32.4 % (36.0-46.0) L 11/06/18 06:50 MCV 94.5 fL (80-95) 11/06/18 06:50 MCH 30.3 pg (27.0-33.0) 11/06/18 06:50 MCHC 32.1 g/dL (32.0-36.0) 11/06/18 06:50 RDW 20.7 % (11.7-14.6) H 11/06/18 06:50 Plt Count 367 x1000/uL (130-400) 11/06/18 06:50 MPV 9.5 fL (8.0-11.0) 11/06/18 06:50 Immature Gran % 0.0 11/06/18 06:50 Neutrophils % 71.0 11/06/18 06:50 Lymphocytes % 12.9 11/06/18 06:50 Monocytes % 12.5 11/06/18 06:50 Eosinophils % 3.2 11/06/18 06:50 Basophils % 0.4 11/06/18 06:50 Absolute Neutrophils 3.80 k/cumm (1.2-6.7) 11/06/18 06:50 Absolute Lymphocytes 0.69 k/cumm (1.2-3.4) L 11/06/18 06:50 Absolute Monocytes 0.67 k/cumm (0.11-0.7) 11/06/18 06:50 Absolute Eosinophils 0.17 k/cumm (0.0-0.7) 11/06/18 06:50 Absolute Basophils 0.02 k/cumm (0.0-0.2) 11/06/18 06:50 Differential Comment Rbc morph reviewed 11/05/18 06:15 RBC Morphology See below 11/05/18 06:15 Polychromasia Present 11/05/18 06:15 Hypochromasia 1+ 11/05/18 06:15 Anisocytosis 2+ 11/05/18 06:15 Sodium 144 mmol/L (136-145) 11/06/18 06:50 Potassium 3.8 mmol/L (3.5-5.1) 11/06/18 06:50 Chloride 107 mmol/L (98-107) 11/06/18 06:50 Carbon Dioxide 26.1 mmol/L (21.0-32.0) 11/06/18 06:50 Anion Gap 10.9 mmol/L (3-11) 11/06/18 06:50 BUN 7 mg/dL (7-18) 11/06/18 06:50 Creatinine 0.77 mg/dL (0.55-1.02) 11/06/18 06:50 Estimated GFR/1.73 m2 >= 60.00 (mL/min/1.73m2) 11/06/18 06:50 Glucose 106 mg/dL (70-100) H 11/06/18 06:50 Lactate 0.8 mmol/L (0.6-1.4) 11/03/18 19:50 Calcium 9.0 mg/dL (8.5-10.1) 11/06/18 06:50 Magnesium 2.1 mg/dL (1.8-2.4) 11/06/18 06:50 Iron 31 ug/dL (50-175) L 11/06/18 06:50 TIBC 316 ug/dL (250-450) 11/06/18 06:50 Transferrin % Sat 10 % (15-50) L 11/06/18 06:50 Ferritin 95 ng/mL (8-388) 11/06/18 06:50 Total Bilirubin 0.7 mg/dL (0.2-1.0) 11/04/18 05:45 AST 29 U/L (15-37) 11/04/18 05:45 ALT 51 U/L (14-59) 11/04/18 05:45 Alkaline Phosphatase 118 U/L (46-116) H 11/04/18 05:45 Creatine Kinase 135 U/L (26-192) 11/03/18 21:54 Troponin I < 0.05 ng/mL (0.00-0.06) 11/04/18 05:45 Total Protein 6.3 g/dL (6.4-8.2) L 11/04/18 05:45 Albumin 3.0 g/dL (3.4-5.0) L 11/04/18 05:45 Vitamin B12 1227 pg/mL (193-986) H 11/06/18 06:50 Folate 19.5 ng/mL (8.6-20.0) 11/06/18 06:50 Procalcitonin 0.1 ng/mL 11/04/18 02:10 TSH 2.37 uIU/mL (0.36-3.74) 11/06/18 06:50 Urine Color Yellow (Yellow) 11/03/18 19:43 Urine Clarity Clear (Clear) 11/03/18 19:43 Urine pH 7.5 (5-8) 11/03/18 19:43 Ur Specific [place] 1.015 (1.005-1.025) 11/03/18 19:43 Urine Protein Negative mg/dL (Negative) 11/03/18 19:43 Urine Ketones Negative mg/dL (Negative) 11/03/18 19:43 Urine Blood Trace-intact (Negative) H 11/03/18 19:43 Urine Nitrite Negative (Negative) 11/03/18 19:43 Urine Bilirubin Negative (Negative) 11/03/18 19:43 Urine Urobilinogen 0.2 EU/dL (Up TO 0.2) 11/03/18 19:43 Ur Leukocyte Esterase Negative (Negative) 11/03/18 19:43 Urine RBC 0-2 (0-2) 11/03/18 19:43 Urine WBC 0-2 HPF (0-5) 11/03/18 19:43 Ur Epithelial Cells Rare HPF (Negative) 11/03/18 19:43 Urine Crystals Negative HPF (Negative) 11/03/18 19:43 Urine Bacteria Negative HPF (Negative) 11/03/18 19:43 Urine Casts Negative LPF (Negative) 11/03/18 19:43 Urine Mucus Negative (Negative) 11/03/18 19:43 Ur Culture Indicated? No 11/03/18 19:43 Urine Glucose Negative mg/dL (Negative) 11/03/18 19:43 Legionella Source (see note) 11/04/18 07:30 Legionella Reprt Status (see note) 11/04/18 07:30 Legionella Final Result (see note) 11/04/18 07:30
[2018-11-06 15:31] LABS: Streptococcus Pneumoniae Ag, U Negative (Negative)
[2018-11-06 16:26] VITALS: BP 129/79; PULSE 99; RESP 19; TEMP 37.5; O2SAT 99
[2018-11-06] MEDS: Montelukast 10 MG TAB PO (17:49)
[2018-11-06] MEDS: Erythromycin Ophth Oint 3.5 GM TUBE OP (22:00)
[2018-11-06] MEDS: Acetaminophen 325 MG TAB PO (22:29)
[2018-11-07 00:10] VITALS: BP 95/58; PULSE 94; RESP 18; TEMP 37; O2SAT 92
[2018-11-07 07:24] LABS: Abs Immature Grans 0.01 k/cumm (0.0-0.09); Absolute Basophil Count 0.01 k/cumm (0.0-0.2); Absolute Eosinophil Count 0.17 k/cumm (0.0-0.7); Absolute Lymphocyte Count 0.69 k/cumm (1.2-3.4); Absolute Monocyte Count 0.69 k/cumm (0.11-0.7); Basophils % 0.2; Eosinophils % 4.1; HCT 34.8 % (36.0-46.0); HGB 11.2 g/dL (12.0-15.5); Immature Grans % 0.2; Lymphocytes % 16.5; Mean Corp. HGB Concentration 32.2 g/dL (32.0-36.0); Mean Corpuscular Hemoglobin 30.3 pg (27.0-33.0); Mean Corpuscular Volume 94.1 fL (80-95); Mean Platelet Volume 9.3 fL (8.0-11.0); Monocytes % 16.5; Neutrophils % 62.5; Platelet Count 427 x1000/uL (130-400); RBC Distribution Width 20.1 % (11.7-14.6); White Blood Cell Count 4.17 k/cumm (4.4-10.8)
[2018-11-07 07:30] VITALS: BP 102/66; PULSE 77; RESP 14; TEMP 36.6; O2SAT 92
[2018-11-07 07:30] LABS: Anion Gap 7.7 mmol/L (3-11); BUN 10 mg/dL (7-18); CO2 28.3 mmol/L (21.0-32.0); CREATININE 0.93 mg/dL (0.55-1.02); Calcium 9.3 mg/dL (8.5-10.1); Chloride 106 mmol/L (98-107); Glucose 102 mg/dL (70-100); Magnesium 2.2 mg/dL (1.8-2.4); Potassium 4.3 mmol/L (3.5-5.1); Sodium 142 mmol/L (136-145)
[2018-11-07 07:34] LABS: Absolute Neutrophil Count 2.61 k/cumm (1.2-6.7)
[2018-11-07] MEDS: Budesonide/Formoterol 160/4.5 6 GM 60 PUFF INH IH (07:59)
[2018-11-07] MEDS: Normal Saline Flush 10 ML SYR IVP (08:36)
[2018-11-07] MEDS: Lactobacillus Acidophilus CAP 1 CAP PO ×2 (08:37→18:08)
[2018-11-07] MEDS: Azithromycin 250 MG TAB PO (08:37)
[2018-11-07] MEDS: Enoxaparin 40 MG/0.4 ML SYR SC (08:37)
[2018-11-07] MEDS: Potassium Chloride 10 MEQ TABCR PO (08:37)
[2018-11-07] MEDS: Acyclovir 400 MG TAB 800 MG PO (08:37)
[2018-11-07] MEDS: CEFEPIME 2 GM in Normal Saline 100 ML IVPB ×2 (09:55→18:09)
[2018-11-07] MEDS: levoFLOXacin 750 MG/150 ML BAG 100 MG IVPB (12:06)
--- NOTE | 2018-11-07 15:07 | DSE_ITS ---
Date of service: 11/07/18 Time of Service: 15:08 DS: Diagnosis Discharge Diagnosis (1) Community acquired pneumonia: Status: Acute (2) Dpxtv-uvvtde-chsa disease complicating stem cell transplant: Status: Acute (3) Cutaneous T-cell lymphoma: Status: Acute (4) Elevated transaminase level: Status: Acute (5) Shoulder pain: Status: Acute (6) Anemia: Status: Chronic (7) Diarrhea: Status: Acute Discharge Plan Disposition Patient Disposition: HOME Condition: Stable Discharge Details Chief Complaint: Fever Clinical Impression: Pneumonia, Sepsis, Immunosuppression Reason For Visit: ATYPICAL PNEUMONIA Admit Date/Time: 11/04/18 00:00 Admit Provider: Mina Faulkner Attending Provider: Mina Faulkner Primary Care Provider: Caitlin Patel ED Provider: Tom Katz Hospital Course Hospital Course: Chief Complaint: Dyspnea HPI: 73 year old woman with a prior history significant for 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 Mrs. 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 She follows with Oncology at [facility], and [facility] locally with whom she receives Photopharesis twice weekly. The patient's other medical history includes prior urosepsis and a history of C. Diff in the past. She reported to the ED with a sudden onset of fevers, generalized body aches, and rigors. She was initially found to be febrile, and her work-up was significant for a mild initial leukocytosis, mildly elevated LFTs, normal kidney function and electrolytes, and a normal lactate. Her imaging with CT of the chest was significant for multiple areas of ground glass and consolidative air space opacities, with suspected pneumonia as etiology. Per discussion with patient's oncologist, she has had prior history of viral pulmonary infections in the past. She was referred for admission for further evaluation and treatment. Mrs. Ely was started on broad spectrum antibiotic coverage, and since admission has defervesced, with a normalized WBC. She feels improved. Her blood cultures remain negative, and rapid influenza was negative as well. She has complaining of left shoulder pain, with onset at time of her symptoms, with negative imaging and improved symptoms. This morning she remains stable and without any acute complaints. No overnight events reported. Remains afebrile. Hospital Course: (1) Pneumonia: Patient with underlying pulmonary disease following development of GVH dz, without film for direct comparison - however, by symptoms appear to be a superimposed infection, and given that she rapidly defervesced with antibiotic therapy, may be bacterial in nature. Unfortunately culture results are not telling, and she is not producing sputum. According to conversation with Dr. Summers, patient's oncologist at [facility], she has a history of viral pulmonary infections in the past requiring supplemental oxygen - Mrs. Ely continues to remain off O2. - Will receive 4 day course of Cefepime and Levofloxacin by the time of discharge - as she is insistent on returning home she will be discharged with recommendations for concluding her course of antibiotic therapy with oral Levofloxacin. Procalcitonin use likely limited in patient given relative immunosuppression. Culture results negative. (2) Otvtn-babvbj-divj disease complicating stem cell transplant: Noted, with subsequent development of pulmonary disease per history. Copy of CT of the chest will be provided to patient to return to [place], for direct comparison with her old films. (3) Cutaneous T-cell lymphoma: Following with Oncology at [facility], [facility] [place]. (4) Elevated transaminase level: Likely related to acute illness - mild and resolved immediately with IVFs. (5) Shoulder pain: Unsure of etiology - no abnormality on CT, and Xray of the shoulder performed and without significant abnormality (mild degenerative changes only). (6) Anemia: Drop in Hgb in setting of fluid resuscitation. Stool negative for occult blood, with normal iron and TIBC, Ferritin of 95. Interestingly patient's B12 is elevated and she admits to high levels of red meat and organ meat intake inorder to increase her red blood count. FA and TSH normal. (7) Diarrhea: Likely antibiotic related, and patient endorses a history of diarrhea while receiving antibiotics. Loose stools resolved with addition of probiotics. (8) DVT prophylaxis: Was maintained on SC Lovenox. On PPI therapy for GI Prophylaxis as well. Home Meds and New Rx's Prescriptions: New acidophilus-pectin, citrus 25 million cell -100 mg Tablet 1 cap PO BID Qty: 60 RF: 0 levofloxacin 750 mg tablet 750 mg PO DAILY Qty: 2 RF: 0 Continued Jakafi 10 mg Tablet 10 mg PO BID RF: 0 montelukast [Singulair] 10 mg Tablet 10 mg PO HS RF: 0 Symbicort 160-4.5 mcg/actuation Hfa Aerosol Inhaler 1 puff INHALATION BID RF: 0 Flovent HFA 110 mcg/actuation Hfa Aerosol Inhaler 2 puff INHALATION DAILY RF: 0 azithromycin 250 mg Tablet 250 mg PO DAILY RF: 0 acyclovir 200 mg Capsule 800 mg PO BID RF: 0 pravastatin 10 mg Tablet 10 mg PO HS RF: 0 potassium chloride 20 mEq Tablet Extended Release 10 meq PO DAILY RF: 0 erythromycin 5 mg/gram (0.5 %) Ointment 1 applic ophthalmic (eye) DAILY RF: 0 Xiidra 5 % Dropperette 1 drp ophthalmic (eye) BID RF: 0 Fish Oil Retainplus Leonel 3 Adv RF: 0 Serum Eye Drops RF: 0 clobetasol 0.05 % Gel 1 applic TOPICAL NOW RF: 0 triamcinolone acetonide 0.1 % Cream 1 applic TOPICAL PRN PRNRF: 0 carmustine 100 mg Recon Soln DAILY RF: 0 estradiol [Yuvafem] 10 mcg Tablet 10 mcg VAGINAL DIRECTED RF: 0 fluconazole 100 mg Tablet PO PRN PRNRF: 0 mupirocin 2 % Ointment 1 applic TOPICAL PRN PRNRF: 0 ondansetron HCl [Zofran] 4 mg Tablet 4 mg PO PRN PRNRF: 0 benzonatate [Tessalon Perles] 100 mg Capsule 100 mg PO PRN PRNRF: 0 Discharge Instructions Stand Alone Forms: Nursing Discharge Form Referrals: Caitlin Patel [Primary Care Provider] - Activity:: No strenuous activity Equipment/Supplies:: No Equipment Needed Diet:: As Tolerated Discharge Orders Discharge Orders: Discharge Order (Routine); Ordered 11/07/18 Ordered By: Herbie Schumacher DS: Summary Status at Discharge Functional status at discharge: independent ambulation Overall status at discharge: patient is back to baseline Mental Status: mental status grossly normal Speech and Movement: speech and movement normal Mood: congruent mood Affect: normal affect Exam Psych Mental Status: mental status grossly normal Speech and Movement: speech and movement normal Mood: congruent mood Affect: normal affect DS: Data Vitals/I&O Vitals and I&O: Vital Signs Temperature 37 C 11/07/18 00:10 Temperature Source Tympanic 11/07/18 00:10 Pulse 94 H 11/07/18 00:10 Pulse Rhythm Regular 11/07/18 07:35 Respiratory Rate 18 11/07/18 00:10 Respiratory Effort Non-Labored 11/07/18 07:35 Respiratory Depth Normal 11/07/18 07:35 Respiratory Pattern Normal 11/07/18 07:35 Blood Pressure 95/58 L 11/07/18 00:10 Blood Pressure Mean 82 11/05/18 12:09 Blood Pressure Position Supine 11/05/18 12:07 Pulse Oximetry 92 L 11/07/18 00:10 Oxygen Delivery Method Room Air 11/07/18 00:10 Oxygen Flow Rate 0 11/07/18 00:10 Pain Level 0 11/06/18 16:26 Comment 11/05/18 10:17 Intake & Output 11/06/18 11/07/18 11/07/18 23:59 11:59 23:59 Intake Total 900 / 1130 680 / 680 Balance 900 / 1130 680 / 680 Weight 50.4 kg Intake: IV 270 / 380 200 / 200 Oral 630 / 750 480 / 480 Other: Urine Color Yellow Urine Appearance Clear Clear Urine Odor Normal Comment Pt voiding ad radha. Pt denies discomfort voiding Voiding Methods Toilet Data Completed and Pending Completed studies during hospitalization [Text1]: Exam(s) a RAD:XR chest 2V PA & lateral EXAM: XR CHEST 2V PA LATERAL CLINICAL HISTORY: COUGH, FEVER TECHNIQUE: 2D digital imaging was performed. COMPARISON: None. FINDINGS: LUNGS: Clear. No pleural abnormality seen. HEART: Normal. MEDIASTINUM: Normal. OTHER FINDINGS:Normal. IMPRESSION: No acute pulmonary findings. --------- Exam(s) a CT:CT chest PE CTA EXAM: CT CHEST PE CTA CLINICAL HISTORY: CHEST PAIN, SOB, TACHYCARDIA, LYMPHOMA TECHNIQUE: CT angiography was performed with multi slice acquisition and multi planar and 3D reconstruction. CT angiography of the chest was performed with a bolus infusion of 57 cc of Omnipaque 350. COMPARISON: No exams were available for comparison FINDINGS: Images obtained through the upper abdomen show unremarkable appearance of visualized portions of liver, spleen, pancreas, adrenals and kidneys. No thoracic aortic aneurysm or dissection. No evidence of pulmonary embolic disease. No mediastinal hilar or axillary or supraclavicular adenopathy. There are multiple focal areas of intrapulmonary ground-glass opacity particularly in the upper lobes but involving all lobes and there are areas of apparent focal consolidation seen involving both lower lobes suspicious for acute pneumonia. Some of these consolidative radiodensities are vaguely nodular in appearance and the possibility of underlying mass is not excluded. There is focal area of consolidation seen adjacent to the posterior cardiac border in the left lower lobe, again a mass is not excluded at this site. Multiple smaller pulmonary nodules are also identified bilaterally. No pleural effusion seen. IMPRESSION: No evidence of pulmonary embolic disease. Multiple areas of ground glass and consolidative air space opacity, suspect pneumonia. Underlying neoplastic disease not excluded, particularly in a patient with a history of lymphoma. Follow up chest CT suggested after treatment. Exam(s) a RAD:XR shoulder LT complete 2+V EXAM: XR SHOULDER LT COMPLETE 2+V INDICATION: Left shoulder pain. COMPARISON: No exams were available for comparison TECHNIQUE: 2D digital imaging was performed. FINDINGS: The bony structures are normally mineralized. The glenohumeral joint is well- maintained. There are mild degenerative changes involving the AC joint. Labs on day of discharge: Labs from last 24 hours 11/07/18 11/07/18 11/04/18 07:05 07:05 07:30 WBC 4.17 L RBC 3.70 L Hgb 11.2 L Hct 34.8 L MCV 94.1 MCH 30.3 MCHC 32.2 RDW 20.1 H Plt Count 427 H MPV 9.3 Immature Gran % 0.2 Neutrophils % 62.5 Lymphocytes % 16.5 Monocytes % 16.5 Eosinophils % 4.1 Basophils % 0.2 Absolute Neutrophils 2.61 Absolute Lymphocytes 0.69 L Absolute Monocytes 0.69 Absolute Eosinophils 0.17 Absolute Basophils 0.01 Sodium 142 Potassium 4.3 Chloride 106 Carbon Dioxide 28.3 Anion Gap 7.7 BUN 10 Creatinine 0.93 Estimated GFR/1.73 m2 59.10 Glucose 102 H Calcium 9.3 Magnesium 2.2 Ur Strep pneumoniae Ag Negative Preliminary micro results at discharge 11/03/18 20:17 Blood Culture - Preliminary Blood NO GROWTH 72 HOURS 11/03/18 19:50 Blood Culture - Preliminary Blood NO GROWTH 72 HOURS [facility] Medical History Cutaneous T-cell lymphoma (Acute) 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
--- NOTE | 2018-11-07 16:12 | PDOC.CMDIS ---
- If Service Date Differs Date of service: 11/07/18 Time of Service: 16:12 LACE Index Scoring Tool - Questions: Length of Stay (in days): 3 Acuity (Admit via E.D.?): Yes Comorbidities: Any Tumor E.D. Visits: 1 - Answers: Total Score: 9 Risk of Readmission: Low Risk Care Management Discharge Reason for Hospitalization: Community acquired pneumonia Discharge Plan: Nicolás will be discharged home with no new services this afternoon after she completes her 1800 dose of antibiotic. She will transport via private vehicle with her . Nicolás and her malik be driving to [place] on Saturday, where she will follow up with her health care providers there. Patient/Family Education Needs: Discharge plan, limitations, follow up plan and Ask Me Three.
[2018-11-07 17:55] VITALS: BP 117/76; PULSE 92; RESP 17; TEMP 37; O2SAT 100
[2018-11-07] MEDS: Montelukast 10 MG TAB PO (18:08)
== END 2018-11-07 18:51 | disposition home or self-care (01) | DRG 194 ==
LOC: ER 11-04 01:18 → ICU 11-04 01:34 → MS 11-07 15:16 → ICU 11-13 15:23
PROVIDERS: Admitting Provider Internal Medicine; Emergency Provider Student in an Organized Health Care Education/Training Program; PCP Internal Medicine; Visit Provider Internal Medicine
DX: J18.1 Lobar pneumonia, unspecified organism (principal); C84.A5 Cutaneous T-cell lymphoma, unspecified, lymph nodes of inguinal region and lower limb; T86.5 Complications of stem cell transplant; D89.811 Chronic graft-versus-host disease; D64.9 Anemia, unspecified; R19.7 Diarrhea, unspecified; M25.512 Pain in left shoulder
CPT/HCPCS: 36415; 71275; 80048; 80053; 82550; 84145; 87040; 87449; 94640; 97161; 99223; 99232; 99233; 99239; 99285; J1650; 71046; 73030; 81003; 81015; 82607; 82728; 82746; 83540; 83550; 83605; 83735; 84443; 84484; 85025; 87324; 87450; 99284; J1720; J1956; J3490

== ENCOUNTER 2019-03-30 10:57 | Emergency (ER) | payer OTHER, SELFPAY ==
[2019-03-30 11:00] VITALS: BP 150/81; PULSE 95; RESP 20; TEMP 36.5; O2SAT 94
--- NOTE | 2019-03-30 11:22 | ED.GENADUL_ITS ---
Discharge Plan Disposition Patient Disposition: HOME Condition: Improving Discharge Details Chief Complaint: HeadInjury Clinical Impression: Closed head injury Primary Care Provider: Caitlin Patel ED Provider: Kevin Rodriguez Home Meds and New Rx's Prescriptions: Continued Jakafi 10 mg Tablet 10 mg PO BID RF: 0 montelukast [Singulair] 10 mg Tablet 10 mg PO HS RF: 0 budesonide-formoterol [Symbicort] 160-4.5 mcg/actuation Hfa Aerosol Inhaler 1 puff INHALATION BID RF: 0 Flovent HFA 110 mcg/actuation Hfa Aerosol Inhaler 2 puff INHALATION DAILY RF: 0 azithromycin 250 mg Tablet 250 mg PO DAILY RF: 0 acyclovir 200 mg Capsule 800 mg PO BID RF: 0 pravastatin 10 mg Tablet 10 mg PO HS RF: 0 Xiidra 5 % Dropperette 1 drp ophthalmic (eye) BID RF: 0 Serum Eye Drops RF: 0 clobetasol 0.05 % Gel 1 applic TOPICAL NOW RF: 0 triamcinolone acetonide 0.1 % Cream 1 applic TOPICAL PRN PRNRF: 0 carmustine 100 mg Recon Soln DAILY RF: 0 estradiol [Yuvafem] 10 mcg Tablet 10 mcg VAGINAL DIRECTED RF: 0 mupirocin 2 % Ointment 1 applic TOPICAL PRN PRNRF: 0 ondansetron HCl [Zofran] 4 mg Tablet 4 mg PO PRN PRNRF: 0 benzonatate [Tessalon Perles] 100 mg Capsule 100 mg PO PRN PRNRF: 0 Discharge Instructions Instructions: Head Injury (ED) Additional Instructions: Return for worsening headache, if you develop vomiting, or any other acute concern. May use Tylenol if needed for pain. Resume normal routine and activities. Stay hydrated with liberal, small sips of fluids. Continue your regular medications. The CAT scan of your head was unremarkable today. Medical Decision Making 73-year-old female presents from home stating she slipped and fell 4 days ago and has had persistent headache since that time. She has a history of cutaneous T-cell lymphoma, status post bone marrow transplant and subsequent kefgn-rbdsva-lvhy disease. She is not been ill in any other way. She does not have a history of thrombocytopenia. Her neurologic exam is unremarkable. Differential diagnosis includes concussion, closed head injury, must exclude skull fracture or intracranial process. Patient referred for noncontrast CT scan of the head. There is no evidence of acute findings on CT of the head. Patient counseled as to management of mild concussion. She is stable for discharge home at this time. HPI General Mode of arrival: ambulatory . Date/Time Provider Initiated Documentation: 03/30/19 10:59 . Limitations to Documentation: no limitations . Information obtained by: patient . History of Present Illness 73 year old F presents to the emergency department with the chief complaint of Fall on with resultant headache, chronic medical issues unchanged, described as mild, and is localized to the head. Patient reports no radiation. Patient started experiencing this day(s) No relieving factors improve symptom(s), No exacerbating factors reported . Patient notes denies chest pain, loss of appetite, nausea/vomiting, syncope and weakness. Patient did receive the following treatments prior to arrival, none Related Data Home Medications Medication Instructions Recorded Confirmed Flovent HFA 2 puff INHALATION DAILY 11/03/18 03/30/19 Jakafi 10 mg PO BID 11/03/18 03/30/19 Serum Eye Drops 11/03/18 Xiidra 1 drp OPHTHALMIC (EYE) BID 11/03/18 03/30/19 acyclovir 800 mg PO BID 11/03/18 03/30/19 azithromycin 250 mg PO DAILY 11/03/18 03/30/19 benzonatate [Tessalon Perles] 100 mg PO PRN PRN 11/03/18 11/03/18 budesonide-formoterol [Symbicort] 1 puff INHALATION BID 11/03/18 03/30/19 carmustine mg DAILY 11/03/18 clobetasol 1 applic TOPICAL NOW 11/03/18 03/30/19 estradiol [Yuvafem] 10 mcg VAGINAL DIRECTED 11/03/18 03/30/19 montelukast [Singulair] 10 mg PO HS 11/03/18 03/30/19 mupirocin 1 applic TOPICAL PRN PRN 11/03/18 03/30/19 ondansetron HCl [Zofran] 4 mg PO PRN PRN 11/03/18 03/30/19 pravastatin 10 mg PO HS 11/03/18 03/30/19 triamcinolone acetonide 1 applic TOPICAL PRN PRN 11/03/18 03/30/19 Allergies Allergy/AdvReac Type Severity Reaction Status Date / Time diphenhydramine AdvReac Mild Skin Rash Unverified 03/30/19 11:05 [From Benadryl] Iodinated Contrast Media AdvReac Mild Skin Rash Unverified 03/30/19 11:05 Penicillins AdvReac Mild Skin Rash Unverified 03/30/19 11:05 General Stated Complaint: HeadInjury FORTUNATO: 3 Review of Systems Narrative: 6 systems reviewed and otherwise negative. No neck pain no back pain, no weakness or tingling of the upper extremities. No vomiting. No change to vision. 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 Pleasant, well groomed, interactive. HEAD: Normocephalic, atraumatic ENT: Mucous membranes moist, oropharynx unremarkable, External ear exam unremarkable EYES: PERRL, EOMI NECK: Full ROM, no MARLENE, no menigismus CHEST/RESP: Nontender, clear to auscultation bilateral, no wheeze/rhonchi/rales CARDIOVASCULAR: RRR, no murmur, rub cindi. 2+ Rad pulse bilateral ABDOMEN: Soft, nontender, no mass. +Bowel sounds EXT: Full ROM, no edema, no rash Neuro: Grossly normal neurologic exam, conversant, interactive. Cranial nerves II through XII intact. Negative Romberg. Psych: Speech fluent, thoughts congruent, affect normal Course Vital Signs Vital signs: Vital Signs Temperature 36.5 C 03/30/19 11:00 Pulse 95 H 03/30/19 11:00 Respiratory Rate 20 03/30/19 11:00 Blood Pressure 150/81 H 03/30/19 11:00 Pulse Oximetry 94 L 03/30/19 11:00 Temperature 36.5 C 03/30/19 11:00 Temperature Source Skin 03/30/19 11:00 Pulse 95 H 03/30/19 11:00 Respiratory Rate 20 03/30/19 11:00 Respiratory Effort 03/30/19 11:08 Blood Pressure 150/81 H 03/30/19 11:00 Blood Pressure Position Sitting 03/30/19 11:00 Pulse Oximetry 94 L 03/30/19 11:00 Oxygen Delivery Method Room Air 03/30/19 11:00 Oxygen Flow Rate 0 03/30/19 11:00
--- NOTE | 2019-03-30 11:58 | DI.CT_ITS ---
EXAM: CT HEAD WO CT HEAD WO CLINICAL HISTORY: headache after fall. headache after fall TECHNIQUE: Imaging Protocol: Axial computed tomography images with coronal and sagittal reformatted images were created and reviewed COMPARISON: No exams were available for comparison FINDINGS: The ventricular system is normal in appearance. No evidence of acute intracranial hemorrhage, mass effect, or midline shift. There is mild cortical atrophy. The orbital structures are unremarkable. The temporal bone structures appear intact. Calvarium: Normal. Visualized Paranasal sinuses/Mastoids: Clear. IMPRESSION: Normal cranial CT. DATA REPOSITORY: All CT scans at this facility are submitted to the National Radiology Data Registry (NRDR) Dose Index Registry (DIR) with the [employer] ([employer]). RADIATION OPTIMIZATION: All CT scans at this facility use at least one of these dose optimization te chniques: automated exposure control; mA and/or kV adjustment per patient size (includes targeted exa ms where dose is matched to clinical indication); or iterative reconstruction.
[2019-03-30 12:00] VITALS: BP 117/68; PULSE 77; TEMP 36.4; O2SAT 97
== END 2019-03-30 12:08 | disposition home or self-care (01) ==
PROVIDERS: Emergency Provider Emergency Medicine; PCP Internal Medicine
DX: S09.90XA Unspecified injury of head, initial encounter (principal); W01.198A Fall on same level from slipping, tripping and stumbling with subsequent striking against other object, initial encounter; C84.A0 Cutaneous T-cell lymphoma, unspecified, unspecified site
CPT/HCPCS: 36415; 99285; 70450; 99284

== ENCOUNTER 2019-07-22 02:52 | Outpatient (CLI) | payer OTHER, SELFPAY ==
[2019-07-22 08:04] LABS: Abs Immature Grans 0.02 k/cumm (0.0-0.09); Absolute Eosinophil Count 0.06 k/cumm (0.0-0.7); Absolute Monocyte Count 0.55 k/cumm (0.11-0.7); Absolute Neutrophil Count 2.41 k/cumm (1.2-6.7); Eosinophils % 1.6; HCT 40.3 % (36.0-46.0); HGB 13.6 g/dL (12.0-15.5); Immature Grans % 0.5 %; Lymphocytes % 20.8; Mean Corp. HGB Concentration 33.7 g/dL (32.0-36.0); Mean Corpuscular Hemoglobin 34.2 pg (27.0-33.0); Mean Corpuscular Volume 101.3 fL (80-95); Mean Platelet Volume 8.9 fL (8.0-11.0); Monocytes % 14.3; Neutrophils % 62.8; Platelet Count 415 x1000/uL (130-400); RBC 3.98 m/cumm (4.00-5.20); RBC Distribution Width 12.9 % (11.7-14.6); White Blood Cell Count 3.84 k/cumm (4.4-10.8)
[2019-07-22 09:04] LABS: ALT 63 U/L (14-59); AST 55 U/L (15-37); Alkaline Phosphatase 64 U/L (46-116); Anion Gap 4.1 mmol/L (3-11); BUN 12 mg/dL (7-18); Bilirubin, Total 0.6 mg/dL (0.2-1.0); CO2 31.9 mmol/L (21.0-32.0); Calcium 9.6 mg/dL (8.5-10.1); Calculated LDL 134 mg/dL (<100); Chloride 107 mmol/L (98-107); Cholesterol 243 mg/dL (<200); Estimated GFR 48.55 (mL/min/1.73m2); Ferritin 89 ng/mL (8-252); Glucose 99 mg/dL (74-106); HDL Cholesterol 98 mg/dL (40-60); Potassium 3.8 mmol/L (3.5-5.1); Sodium 143 mmol/L (136-145); Total Protein 6.8 g/dL (6.4-8.2); Triglyceride 58 mg/dL (<150)
[2019-07-25 11:35] LABS: CD3 71 % (62-87); CD4 15 % (35-63); CD8 47 % (10-35)
== END 2019-07-22 03:12 ==
PROVIDERS: PCP Internal Medicine
DX: T86.00 Unspecified complication of bone marrow transplant (principal); C84.A0 Cutaneous T-cell lymphoma, unspecified, unspecified site; D89.813 Graft-versus-host disease, unspecified
CPT/HCPCS: 36415; 80053; 80061; 82533; 87206; 82728; 85025; 86359; 86360

== ENCOUNTER 2019-08-02 08:55 | Emergency (ER) | payer OTHER, SELFPAY ==
--- NOTE | 2019-08-02 09:01 | ED.GENADUL_ITS ---
Discharge Plan Disposition Patient Disposition: HOME Condition: Stable Discharge Details Chief Complaint: Cellulitis Clinical Impression: Chronic pruritic rash in adult Primary Care Provider: Caitlin Patel ED Provider: Katy Lyman Home Meds and New Rx's Prescriptions: New clotrimazole-betamethasone 1-0.05 % lotion 1 applic TP BID 28 Days Qty: 60 RF: 0 doxycycline hyclate 100 mg tablet 100 mg PO BID 7 Days Qty: 14 RF: 0 Continued Jakafi 10 mg Tablet 10 mg PO BID RF: 0 montelukast [Singulair] 10 mg Tablet 10 mg PO HS RF: 0 budesonide-formoterol [Symbicort] 160-4.5 mcg/actuation Hfa Aerosol Inhaler 1 puff INHALATION BID RF: 0 Flovent HFA 110 mcg/actuation Hfa Aerosol Inhaler 2 puff INHALATION DAILY RF: 0 azithromycin 250 mg Tablet 250 mg PO DAILY RF: 0 acyclovir 200 mg Capsule 800 mg PO BID RF: 0 pravastatin 10 mg Tablet 10 mg PO HS RF: 0 Xiidra 5 % Dropperette 1 drp ophthalmic (eye) BID RF: 0 Serum Eye Drops RF: 0 clobetasol 0.05 % Gel 1 applic TOPICAL NOW RF: 0 triamcinolone acetonide 0.1 % Cream 1 applic TOPICAL PRN PRNRF: 0 carmustine 100 mg Recon Soln DAILY RF: 0 estradiol [Yuvafem] 10 mcg Tablet 10 mcg VAGINAL DIRECTED RF: 0 mupirocin 2 % Ointment 1 applic TOPICAL PRN PRNRF: 0 ondansetron HCl [Zofran] 4 mg Tablet 4 mg PO PRN PRNRF: 0 benzonatate [Tessalon Perles] 100 mg Capsule 100 mg PO PRN PRNRF: 0 Discharge Instructions Instructions: Tinea Corporis (ED), Dermatitis (ED) Additional Instructions: Your chronic leg rash may be the result of your CTCL, an unknown dermatitis such as due to a fungal infection, inflammatory condition, or less likely a bacterial infection such as cellulitis. Use the clotrimazole/betamethasone as directed. You are given a prescription for doxycycline for questionable cellulitis. You can try the cream first to see if you have any response before you start the antibiotics. You can speak with your doctor in [place] on your scheduled telemedicine visit on Saturday regarding whether to start the antibiotics. You will receive a call from care management regarding a follow-up appointment with your primary care doctor in the area. You were given a list of dentist for follow-up. You can also speak to care management regarding follow-up with oncology, dermato logy, endocrinology at [facility]. Return to the emergency department if you develop any worsening or extremity symptoms. Discharge Data Discharge Physician: Katy Lyman Medical Decision Making 74-year-old female with a history of cutaneous T-cell lymphoma, isnmx-luawtf-edwo disease chronically on azithromycin presents with pruritic rash to the left leg for the past 3 months. Denies any fever, chest pain or any acute shortness of breath. Her left leg appears to have scattered erythematous papules, macules and patches, some circular rings with central clearing. Differential diagnosis includes skin manifestations of CTCL, tinea corporis, less likely cellulitis. Patient states she had a complicated course with oral steroids over 1 year ago in which she was on them for 1 year and does not want to take any oral steroids. She has been using mupirocin and a topical steroid. Will give a prescription for clotrimazole/betamethasone. Discussed with patient that I do not think she acutely needs antibiotics but will give a prescription for doxycycline to take if she has no change in symptoms or develops worsening pain. She has a telemedicine visit with her primary doctor in [place] on . She states she would like to establish care with a primary care doctor as well as multiple specialties appear. She is placed on care management list to arrange for follow-up appointment with a PCP. She states she sees oncology Dr. Patel at [facility]. She is advised to call [facility] dermatology, endocrinology. She also expressed concern about a possible broken tooth in the left lower side but denies any dental pain or fever. There appeared to be a small portion of the tooth missing left lower side, approximately tooth number, but there is no evidence of abscess. She was given the dental follow-up list. Medical Records Medical records reviewed: Yes I reviewed the patient's medical records. HPI General Mode of arrival: ambulatory . Date/Time Provider Initiated Documentation: 08/02/19 08:59 . Limitations to Documentation: no limitations . Information obtained by: patient . HPI Narrative: Patient is a 74-year-old female with a history of cutaneous T-cell lymphoma, mgulz-oehnml-icdc disease, paroxysmal atrial fibrillation and TIA who presents for chronic itchy rash to her left leg for the past 3 months. Patient states she was concerned about possible ringworm versus cellulitis. She states she lives in [place] but has a house here and moved up here 3 months ago and has been in quarantine. She states she was treated with Keflex for her left leg rash in February which resolved with this. She states the rash returned in April without relief with Keflex. She states she has 2 wounds on her legs, 1 of which she had and started bleeding today which is since resolved. She is chronically on azithromycin for her fwzqo-rjzrga-weiv disease and denies any acute change in her shortness of breath. She denies fever, chest pain, abdominal pain. She also states she broke a portion of her tooth on the left lower side in the past few days. She denies any dental pain but states since she will be staying in the area indefinitely for the time being, she wants to establish follow-up with a dentist. She states she had taken oral steroids for more than 1 year over 1 year ago and had a complicated course and does not want to take any oral steroids. Related Data Home Medications Medication Instructions Recorded Confirmed Flovent HFA 2 puff INHALATION DAILY 11/03/18 08/02/19 Jakafi 10 mg PO BID 11/03/18 08/02/19 Serum Eye Drops 11/03/18 Xiidra 1 drp OPHTHALMIC (EYE) BID 11/03/18 08/02/19 acyclovir 800 mg PO BID 11/03/18 08/02/19 azithromycin 250 mg PO DAILY 11/03/18 08/02/19 benzonatate [Tessalon Perles] 100 mg PO PRN PRN 11/03/18 08/02/19 budesonide-formoterol [Symbicort] 1 puff INHALATION BID 11/03/18 08/02/19 carmustine mg DAILY 11/03/18 clobetasol 1 applic TOPICAL NOW 11/03/18 08/02/19 estradiol [Yuvafem] 10 mcg VAGINAL DIRECTED 11/03/18 08/02/19 montelukast [Singulair] 10 mg PO HS 11/03/18 08/02/19 mupirocin 1 applic TOPICAL PRN PRN 11/03/18 08/02/19 ondansetron HCl [Zofran] 4 mg PO PRN PRN 11/03/18 08/02/19 pravastatin 10 mg PO HS 11/03/18 08/02/19 triamcinolone acetonide 1 applic TOPICAL PRN PRN 11/03/18 08/02/19 clotrimazole-betamethasone 1 applic TP BID 28 Days #60 ml 08/02/19 doxycycline hyclate 100 mg PO BID 7 Days #14 tab 08/02/19 Previous Rx's Medication Instructions Recorded clotrimazole-betamethasone 1 applic TP BID 28 Days #60 ml 08/02/19 doxycycline hyclate 100 mg PO BID 7 Days #14 tab 08/02/19 Allergies Allergy/AdvReac Type Severity Reaction Status Date / Time diphenhydramine AdvReac Mild Skin Rash Unverified 08/02/19 09:08 [From Benadryl] Iodinated Contrast Media AdvReac Mild Skin Rash Unverified 08/02/19 09:08 Penicillins AdvReac Mild Skin Rash Unverified 08/02/19 09:08 General FORTUNATO: 3 Review of Systems All systems reviewed & are unremarkable except as noted in HPI and below Constitutional Constitutional: Reports as per HPI, Denies chills and Denies fever(s) Eyes Eyes: Denies blurry vision ENT Ears, Nose, Mouth, and Throat: Denies dizziness, Denies sore throat and Denies throat swelling Cardiovascular Cardiovascular: Denies chest pain and Denies dyspnea Respiratory Respiratory: Denies cough and Denies dyspnea Gastrointestinal Gastrointestinal: Denies abdominal pain, Denies diarrhea and Denies vomiting Genitourinary Genitourinary: Denies hematuria and Denies dysuria Musculoskeletal Musculoskeletal: Denies back pain and Denies numbness Integumentary/Breasts Skin/Breast: Denies lesions and Reports rash Neurologic Neurologic: Denies dizziness, Denies localized weakness and Denies numbness Allergic/Immunologic Allergic/Immunologic: Denies throat swelling [facility] Social History Smoking/Tobacco Use Status: Never Alcohol Intake: never Substance use type: former substance user Do you feel safe at home: Yes Do you feel safe in your relationship?: Yes Exam Const General: cooperative, healthy appearing and no acute distress [facility] Head: normal to inspection Ears: hearing grossly normal bilaterally and external ears normal Mouth: oral mucosae normal Teeth image: 1. Approximate tooth #22 noted with an approximate 2 x 3 mm portion missing. This may be a portion of the enamel missing. There is no evidence of erythema, edema, fluctuance, induration, ecchymosis, drainage or bleeding. No evidence of abscess. Eyes General: appearance normal, both eyes and all related structures Neck Neck: normal visual inspection Resp Effort & Inspection: normal respiratory effort and able to speak in complete sentences Cardio Rate: regular rate Skin Full body images: 1. Scattered erythematous papules and macules, some raised, with circular rings and central clearing, some blanching, scattered throughout left anterior posterior leg. There are two 1 x 1 cm crusts which do not appear to have overlying cellulitis but are located on the left medial posterior leg. Neuro General: patient alert, patient awake and patient oriented x3 Motor: muscle tone normal throughout Extrem General: full ROM Other: Left DP/PT pulses intact. No left calf tenderness. Negative Homans sign. There is mild nonpitting edema noted to the left lower extremity compared to right. Psych Appearance: grossly normal Affect: normal affect
[2019-08-02 09:03] VITALS: BP 158/73; PULSE 91; RESP 16; TEMP 36.8; O2SAT 96
--- NOTE | 2019-08-05 10:22 | PDOC.ERCMPRO ---
- If Service Date Differs Date of service: 08/05/19 Time of Service: 10:22 Care Management Progress Note At the request of ED provider, CM contacts Nicolás to offer assistance in setting up speciality care. Patient has an September 23, 2019, appointment scheduled with Jamar Rodriguez MD, of [facility], to establish care with a local PCP. She also has a telehealth visit with her [place] PCP, scheduled for today. Nicolás expresses the desire to wait on scheduling speciality care appointments until after today's telehealth visit. Nicolás is provided with CM's contact information and instructed to call if she would like CM to coordinate referrals.
--- NOTE | 2019-08-18 14:48 | CMPROGNOTE_ITS ---
- If Service Date Differs Date of service: 08/18/19 Time of Service: 14:48 Care Management Progress Note CM receives a telephone call from Nicolás nieto requesting a referral be sent to [facility] in [place], [place]. CM coordinates referral to Dr. Quintero at [facility] (tel. [phone]; fax [phone]) at patient's request.
--- NOTE | 2019-08-18 14:48 | PDOC.ERCMPRO ---
- If Service Date Differs Date of service: 08/18/19 Time of Service: 14:48 Care Management Progress Note CM receives a telephone call from Nicolás nieto requesting a referral be sent to [facility] in [place], [place]. CM coordinates referral to Dr. Quintero at [facility] (tel. [phone]; fax [phone]) at patient's request.
== END 2019-08-02 10:00 | disposition home or self-care (01) ==
PROVIDERS: Emergency Provider Physician Assistant; PCP Internal Medicine
DX: R21 Rash and other nonspecific skin eruption (principal); K03.81 Cracked tooth; C84.A0 Cutaneous T-cell lymphoma, unspecified, unspecified site; L29.9 Pruritus, unspecified; D89.811 Chronic graft-versus-host disease; Z79.2 Long term (current) use of antibiotics
CPT/HCPCS: 99283

== ENCOUNTER 2019-10-21 05:03 | Outpatient (CLI) | payer OTHER, SELFPAY ==
[2019-10-21 08:10] LABS: Abs Immature Grans 0.02 10^3/uL (0.0-0.06); Absolute Basophil Count 0.02 10^3/uL (0.0-0.2); Absolute Eosinophil Count 0.08 10^3/uL (0.0-0.7); Absolute Lymphocyte Count 0.85 10^3/uL (1.2-3.4); Absolute Monocyte Count 0.54 10^3/uL (0.1-0.8); Absolute Neutrophil Count 2.11 10^3/uL (1.2-6.7); Basophils % 0.6; Eosinophils % 2.2; HCT 37.5 % (36.0-46.0); HGB 12.4 g/dL (11.2-15.7); Immature Grans % 0.6; Lymphocytes % 23.5; MCH 34.5 pg (27.0-33.0); MCHC 33.1 % (32.0-36.0); MCV 104.5 fL (80-95); Monocytes % 14.9; Neutrophils % 58.2; Nucleated RBC 0 %; Platelet Count 374 10^3/uL (130-400); RBC 3.59 10^6/uL (3.93-5.22); RDW 13.1 % (11.7-14.6); RDW-SD 49.7 fL; WBC 3.62 10^3/uL (4.4-10.8)
[2019-10-21 08:26] LABS: Hemoglobin A1C 6.2 % (<5.7)
[2019-10-21 09:32] LABS: ALT 60 U/L (14-59); AST 53 U/L (15-37); Albumin 3.8 g/dL (3.4-5.0); Alkaline Phosphatase 69 U/L (46-116); Anion Gap 6.2 mmol/L (3-11); BUN 13 mg/dL (7-18); Bilirubin, Total 0.5 mg/dL (0.2-1.0); CO2 29.8 mmol/L (21.0-32.0); CREATININE 0.93 mg/dL (0.55-1.02); Calcium 9.3 mg/dL (8.5-10.1); Calculated LDL 100 mg/dL (<100); Chloride 108 mmol/L (98-107); Cholesterol 205 mg/dL (<200); Estimated GFR 58.93 (mL/min/1.73m2); Ferritin 75 ng/mL (8-252); Glucose 97 mg/dL (74-106); HDL Cholesterol 92 mg/dL (40-60); Potassium 4.2 mmol/L (3.5-5.1); Sodium 144 mmol/L (136-145); Total Protein 6.5 g/dL (6.4-8.2); Triglyceride 68 mg/dL (<150)
[2019-10-22 09:44] LABS: IgA 62 mg/dL (85-499); IgG 693 mg/dL (610-1,616); IgM 29 mg/dL (35-242)
[2019-10-22 16:54] LABS: CD3 72 % (62-87); CD4 14 % (35-63); CD8 50 % (10-35)
== END 2019-10-21 05:23 ==
PROVIDERS: PCP Family Medicine; Visit Provider Family Medicine
DX: R79.89 Other specified abnormal findings of blood chemistry (principal); C84.A0 Cutaneous T-cell lymphoma, unspecified, unspecified site; D89.813 Graft-versus-host disease, unspecified; D64.9 Anemia, unspecified; E78.5 Hyperlipidemia, unspecified; E27.40 Unspecified adrenocortical insufficiency
CPT/HCPCS: 36415; 80053; 80061; 82533; 82784; 82728; 83036; 85025; 86359; 86360

== ENCOUNTER 2019-11-17 01:46 | Outpatient (CLI) | payer OTHER, SELFPAY ==
--- NOTE | 2019-11-17 09:00 | DI.MAMMO_ITS ---
EXAM: MG MAMMO SCREENING 60 MIN DUR CLINICAL HISTORY: screening,Z12.31, PERSONAL H/O BREAST CA TECHNIQUE: Mammograms were interpreted according to the usual protocol including computer analysis w zappit CAD system, tomosynthesis and C-view imaging. COMPARISON: FINDINGS: The breasts are heterogeneously dense. No dominant mass is identified in either breast. There is a prior lumpectomy. There is an apparent biopsy clip in the upper outer quadrant of the left breast. This is associated with grouping of microcalcifications which is increased in number since prior examination 2019. Thes e calcifications include some punctate and linear forms. Magnification spot compression views reques eliana for further evaluation to evaluate the need for biopsy of these new microcalcifications No other significant change seen. IMPRESSION: Interval increase number of microcalcifications in the upper outer quadrant of the left breast near a biopsy clip. Indeterminate microcalcifications are present. Additional evaluation with magnificati on spot compression views and breast ultrasound recommended. BI-RADS Category 0 - Assessment Incomplete: Need additional imaging evaluation Breast Density - Category C - Heterogeneously dense
--- NOTE | 2019-11-17 09:00 | DI.DEXA_ITS ---
EXAM: XR DEXA BONE DENSITY W/WO KARLA CLINICAL HISTORY: History of osteoporosis,M81.0 TECHNIQUE: COMPARISON: No exams were available for comparison FINDINGS: Lateral Spine Image: Unremarkable. No compression deformities identified. Left hip: Total T-Score: -2.6 Total Z-Score: -0.9 T- and Z-scores: Findings consistent with osteoporosis and high fracture risk. Lumbar Spine: Total T-Score: -2.3 Total Z-Score: 0.0 T- and Z-scores: Findings consistent with osteopenia and increased fracture risk. IMPRESSION: Findings of osteoporosis in the left hip.
== END 2019-11-17 02:06 ==
PROVIDERS: PCP Family Medicine; Visit Provider Family Medicine
DX: M81.0 Age-related osteoporosis without current pathological fracture (principal); Z12.31 Encounter for screening mammogram for malignant neoplasm of breast; Z85.3 Personal history of malignant neoplasm of breast; R92.0 Mammographic microcalcification found on diagnostic imaging of breast
CPT/HCPCS: 77063; 77067; 77080

== ENCOUNTER 2019-12-01 00:45 | Outpatient (CLI) | payer OTHER, SELFPAY ==
--- NOTE | 2019-12-01 14:59 | DI.MAMMO_ITS ---
EXAM: MG MAMMO SCREEN CALL BACK UNI CLINICAL HISTORY: F/U ABNL MAMMO, INCREASE IN NUMBER OF MICROCALCIFICATIONS, TECHNIQUE: Spot compression magnification views were performed of the upper and outer aspect of the left breast. COMPARISON: 2018 and 2018 and recent exam 17 November 2019. FINDINGS: A biopsy marker clip is noted in the upper outer quadrant of the left breast. In the vicinity of the marker, there are multiple small calcifications. There been been no definite change from 2018. A l arge, coarse calcification again noted in a fibroadenoma in the lateral portion of the breast. There are other scattered punctate calcifications elsewhere in the breast. IMPRESSION: BI-RADS Category 3 - 6 month - Probably Benign Finding: Recommend follow-up mammography in 6 months l eft breast Breast Density - Category C - Heterogeneously dense
== END 2019-12-01 01:05 ==
PROVIDERS: PCP Family Medicine; Visit Provider Family Medicine
DX: R92.0 Mammographic microcalcification found on diagnostic imaging of breast (principal); R92.2 Inconclusive mammogram
CPT/HCPCS: 77063; 77067

== ENCOUNTER 2019-12-02 14:04 | Outpatient (REF) | payer OTHER, SELFPAY | END 2019-12-02 14:24 | LOC: LBN 14:04 | PROVIDERS: PCP Family Medicine; Visit Provider Family Medicine | DX: C84.A5 Cutaneous T-cell lymphoma, unspecified, lymph nodes of inguinal region and lower limb (principal); D89.813 Graft-versus-host disease, unspecified; T86.5 Complications of stem cell transplant; Z92.29 Personal history of other drug therapy | CPT/HCPCS: 86317 ==

== ENCOUNTER 2020-01-05 00:07 | Observation (INO) | payer OTHER, SELFPAY ==
[2020-01-05] VITALS (8 sets, daily range): BP systolic 101–130; BP diastolic 55–69; PULSE 78–98; RESP 18–28; TEMP 36.6–37.7; O2SAT 92–98
[2020-01-05 00:43] LABS: Abs Immature Grans 0.02 10^3/uL (0.0-0.06); Absolute Basophil Count 0.01 10^3/uL (0.0-0.2); Absolute Eosinophil Count 0.02 10^3/uL (0.0-0.7); Absolute Lymphocyte Count 0.31 10^3/uL (1.2-3.4); Absolute Monocyte Count 0.19 10^3/uL (0.1-0.8); Absolute Neutrophil Count 4.23 10^3/uL (1.2-6.7); Basophils % 0.2; Eosinophils % 0.4; HGB 14.8 g/dL (11.2-15.7); Immature Grans % 0.4; Lymphocytes % 6.5; MCH 33.9 pg (27.0-33.0); MCHC 32.9 % (32.0-36.0); MPV 9.3 fL (8.0-11.0); Neutrophils % 88.5; Nucleated RBC 0 %; Platelet Count 458 10^3/uL (130-400); RBC 4.37 10^6/uL (3.93-5.22); RDW 13.2 % (11.7-14.6); RDW-SD 50.3 fL; WBC 4.78 10^3/uL (4.4-10.8)
[2020-01-05] MEDS: Normal Saline 1,000 ML 1000 ML IV (00:43)
[2020-01-05] MEDS: Ondansetron 4 MG/2 ML VIAL IVP (00:44)
--- NOTE | 2020-01-05 00:45 | DI.CT_ITS ---
EXAM: CT CHEST/ABD/PEL WO CLINICAL HISTORY: n/v/d, cough TECHNIQUE: Imaging Protocol: Axial computed tomography images with coronal and sagittal reformatted images were created and reviewed CONTRAST MATERIAL: Imaging Protocol: Axial computed tomography images with coronal and sagittal refo rmatted images were created and reviewed. COMPARISON: CT CT CHEST PE CTA from 11/03/2018 FINDINGS: The examination is limited due to patient motion artifact. CHEST: Tracheobronchial tree: Patent where visualized. Mediastinum and [place]: No dominant adenopathy or fluid collection. Pulmonary parenchyma: Ground-glass and nodular opacities are again seen in multiple lobes. No beulah ectural distortion. Pleura: No effusion or pneumothorax. Heart: The heart is not dilated. No coronary artery calcifications are seen. No pericardial effusion. Aorta: Thoracic aorta non-dilated. Mild atherosclerosis. Lymph nodes: Within normal limits. Bones:Degenerative changes in the spine. Soft tissues: Unremarkable. ABDOMEN: Liver: Normal density. No measurable mass. Gallbladder and Biliary Tract: No radiodense calculus or dilation. Pancreas: Normal density, no abnormal calcifications or inflammatory process. Spleen: Normal. Adrenals: No masses seen. Kidneys: Normal size, contour and axis. No radiodense stones or obstructive uropathy. No masses seen. Abdominal Aorta: Abdominal portion non-dilated. Mild atherosclerosis. Bowel: No obstruction or bowel wall thickening. Appendix is unremarkable. Fluid-filled loops of small and large bowel are noted. Peritoneal Cavity: No ascites, collection or mesenteric inflammatory response. Lymph Nodes: Within normal limits. Bones: Degenerative changes. Soft Tissues: Unremarkable. PELVIS: Bladder: Symmetric distention, no gross wall thickening. Reproductive Organs: Unremarkable as visualized. Findings consistent with a tubal ligation. Lymph Nodes: Within normal limits. Bones: Within normal limits. IMPRESSION: 1. Fluid-filled loops of small and large bowel are noted. The findings may represent gastro enteroco litis. No evidence of bowel obstruction or pneumatosis. 2. No significant chest, abdominal or pelvic adenopathy. 3. Ground-glass and nodular opacities in the lungs. This may represent an infectious or inflammatory process. RADIATION DOSE DELIVERED: 930.91mGy.cm Total DLP 930.91mGy.cm Total DLP DATA REPOSITORY: All CT scans at this facility are submitted to the National Radiology Data Registry (NRDR) Dose Index Registry (DIR) with the [employer] (A[employer]). RADIATION OPTIMIZATION: All CT scans at this facility use at least one of these dose optimization te chniques: automated exposure control; mA and/or kV adjustment per patient size (includes targeted exa ms where dose is matched to clinical indication); or iterative reconstruction.
[2020-01-05 00:52] LABS: Lactate 2.4 mmol/L (0.6-1.4)
[2020-01-05 01:00] LABS: PTT Activated 20.6 sec (21.0-27.5); Prothrombin Time 9.9 sec (9.3-11.0)
[2020-01-05 01:06] LABS: ALT 56 U/L (14-59); AST 55 U/L (15-37); Albumin 4.4 g/dL (3.4-5.0); Alkaline Phosphatase 76 U/L (46-116); Anion Gap 9.2 mmol/L (3-11); BUN 13 mg/dL (7-18); Bilirubin, Total 0.4 mg/dL (0.2-1.0); CO2 29.8 mmol/L (21.0-32.0); Calcium 9.9 mg/dL (8.5-10.1); Chloride 104 mmol/L (98-107); Estimated GFR 43.91 (mL/min/1.73m2); Glucose 130 mg/dL (74-106); Potassium 3.9 mmol/L (3.5-5.1); Sodium 143 mmol/L (136-145); Total Protein 8.4 g/dL (6.4-8.2)
[2020-01-05 01:15] LABS: Bilirubin, Direct 0.11 mg/dL (0.00-0.20); Lipase 139 U/L (73-393)
--- NOTE | 2020-01-05 01:37 | DI.VRAD_ITS ---
PROCEDURE INFORMATION: Exam: CT Chest Without Contrast Exam date and time: 01/05/2020 12:51 AM Age: 74 years old Clinical indication: Nausea and vomiting and other: Diarrhea; Cough; Prior surgery; Surgery date: 6+ months; Surgery type: HX of lumpectomy, stem cell transpland, bone marrow transplant; Patient HX: Nvd and chills TECHNIQUE: Imaging protocol: Computed tomography of the chest without contrast. Radiation optimization: All CT scans at this facility use at least one of these dose optimization techniques: automated exposure control; mA and/or kV adjustment per patient size (includes targeted exams where dose is matched to clinical indication); or iterative reconstruction. COMPARISON: CT chest dated 11/03/2018. FINDINGS: Lungs: Moderate bronchiectasis. Stable ground-glass and nodular pulmonary opacities are again seen throughout the lungs bilaterally which are unchanged in size and number when compared to the prior study. Pleural space: No pleural effusion or pneumothorax. Heart: The heart is normal in size. No pericardial effusion. Aorta: Unremarkable. No aortic aneurysm. Lymph nodes: No mediastinal or hilar adenopathy. No axillary adenopathy. Bones/joints: No suspicious sclerotic or lytic osseous lesions. Soft tissues: A coarse calcification is seen within the right superior breast. A calcification or surgical clip is seen within the upper outer quadrant of the left breast. IMPRESSION: 1. No evidence for acute process within the chest. No significant change when compared to 11/03/2018. No evidence for progressed lymphoma. 2. Ground-glass and nodular pulmonary opacities within the lungs bilaterally, suggesting a chronic infectious or inflammatory process. Consider a follow-up chest CT study in 6-12 months to ensure stability. PROCEDURE INFORMATION: Exam: CT Abdomen And Pelvis Without Contrast Exam date and time: 01/05/2020 12:51 AM Age: 74 years old Clinical indication: Nausea and vomiting and other: Diarrhea; Cough; Prior surgery; Surgery date: 6+ months; Surgery type: HX of lumpectomy, stem cell transpland, bone marrow transplant; Patient HX: Nvd and chills TECHNIQUE: Imaging protocol: Computed tomography of the abdomen and pelvis without contrast. Radiation optimization: All CT scans at this facility use at least one of these dose optimization techniques: automated exposure control; mA and/or kV adjustment per patient size (includes targeted exams where dose is matched to clinical indication); or iterative reconstruction. COMPARISON: No relevant prior studies available. FINDINGS: Mediastinal space: A small hiatal hernia is seen. Liver: The liver is upper limits of normal in size. Gallbladder and bile ducts: The gallbladder is likely contracted. Pancreas: The pancreas is normal appearance. Spleen: The spleen is small in size. Adrenal glands: The bilateral adrenal glands are normal appearance. Kidneys and ureters: The bilateral kidneys are grossly normal appearance. Stomach and bowel: The stomach is distended and fluid and air-filled. Significant fluid is seen throughout the small bowel and colon. No bowel obstruction. No pneumatosis. Appendix: No evidence of appendicitis. Intraperitoneal space: No free fluid, free air or abscess. Vasculature: Unremarkable. No abdominal aortic aneurysm. Lymph nodes: Unremarkable. No enlarged lymph nodes. Urinary bladder: Unremarkable as visualized. Reproductive: Bilateral tubal ligation is seen. The uterus is normal in appearance. No adnexal mass. Bones/joints: No suspicious sclerotic or lytic osseous lesions. Soft tissues: Unremarkable. Other findings: The images are mild to moderately motion degraded. IMPRESSION: 1. Findings most consistent with gastroenterocolitis. No bowel obstruction or pneumatosis. 2. No evidence for recurrent lymphoma within the abdomen and pelvis. Dictated and Authenticated by: Patito Rivera MD. Ordering:ALETHEA Gilmore MD
--- NOTE | 2020-01-05 01:43 | ED.GENADUL_ITS ---
Discharge Plan Disposition Patient Disposition: [facility] INPATIENT Condition: Stable Discharge Details Chief Complaint: Abd Prob Clinical Impression: Diarrhea, Dehydration Primary Care Provider: Jamar Rodriguez ED Provider: Mando Samayoa Home Meds and New Rx's Prescriptions: No Action Jakafi 10 mg Tablet 10 mg PO BID RF: 0 montelukast [Singulair] 10 mg Tablet 10 mg PO HS RF: 0 azithromycin 250 mg Tablet 250 mg PO DAILY RF: 0 acyclovir 200 mg Capsule 800 mg PO BID RF: 0 pravastatin 10 mg Tablet 10 mg PO HS RF: 0 Xiidra 5 % Dropperette 1 drp ophthalmic (eye) BID RF: 0 Serum Eye Drops RF: 0 clobetasol 0.05 % Gel 1 applic TOPICAL NOW RF: 0 triamcinolone acetonide 0.1 % Cream 1 applic TOPICAL PRN PRNRF: 0 estradiol [Yuvafem] 10 mcg Tablet 10 mcg VAGINAL DIRECTED RF: 0 mupirocin 2 % Ointment 1 applic TOPICAL PRN PRNRF: 0 ondansetron HCl [Zofran] 4 mg Tablet 4 mg PO PRN PRNRF: 0 benzonatate [Tessalon Perles] 100 mg Capsule 100 mg PO PRN PRNRF: 0 Flovent HFA 110 mcg/actuation HFA aerosol inhaler 2 puff INHALATION BID RF: 0 budesonide-formoterol [Symbicort] 160-4.5 mcg/actuation HFA aerosol inhaler 2 puff INHALATION BID RF: 0 Medical Decision Making 74 yo female with 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 She is on daily azithromycin for prophylaxis per patient for years. She denies travel, fevers, known covid19 exposures. She has a soft abdomen with mild tenderness in the lower abdomen without guarding or rebound. She did feel short of breath with ems but denies this now. Given her complaints and tenderness will obtain ct abd/pelvis to evaluate for possible colitis though suspect possible food related illness. Will also obtain c diff. Pt states she has shortness of breath and appears anxious though is speaking in full sentences with clear lungs and has normal oxygenation on her oxygen saturation. Though I suspect her symptoms are due to feeling anxious with her diarrhea and abdominal cramping will obtain ct of the chest as well to evaluate for pna, she has iodinated contrast allergy so will be noncontrast. No evidence of dvt on exam and no significant hypoxia or tachycardia to suggest PE ct shows chronic lung changes consistent with gvhd, and abd/pelvis shows findings consistent with gastroenteritis. She is having significant diarrhea still and feels to weak to go home. SPoke with Dr. Owens who accepts for admission with c diff still pending Differential Diagnosis Differential Diagnosis: food illness, sbo, gastroenteritis Medical Records Medical records reviewed: Yes I reviewed the patient's medical records. Imaging Data Radiologic Study: Attestation: I personally reviewed and interpreted this imaging study as follows: Imaging: CT Scan Radiologist's impression: 1. No evidence for acute process within the chest. No significant change when compared to 11/03/2018. No evidence for progressed lymphoma. 2. Ground-glass and nodular pulmonary opacities within the lungs bilaterally, suggesting a chronic infectious or inflammatory process. Consider a follow-up chest CT study in 6-12 months to ensure stability IMPRESSION: 1. Findings most consistent with gastroenterocolitis. No bowel obstruction or pneumatosis. 2. No evidence for recurrent lymphoma within the abdomen and pelvis. Lab Data Lab results reviewed: Yes I reviewed the patient's lab results. HPI General Mode of arrival: EMS . Date/Time Provider Initiated Documentation: 01/05/20 00:15 . Limitations to Documentation: no limitations . Information obtained by: patient . History of Present Illness 74 year old F presents to the emergency department with the chief complaint of diarrhea, described as moderate, Patient started experiencing this hour(s) (2) and it has been constant. No relieving factors improve symptom(s), No exacerbating factors reported . Related Data Home Medications Medication Instructions Recorded Confirmed Jakafi 10 mg PO BID 11/03/18 01/05/20 Serum Eye Drops 11/03/18 12/02/19 Xiidra 1 drp OPHTHALMIC (EYE) BID 11/03/18 01/05/20 acyclovir 800 mg PO BID 11/03/18 01/05/20 azithromycin 250 mg PO DAILY 11/03/18 01/05/20 benzonatate [Tessalon Perles] 100 mg PO PRN PRN 11/03/18 01/05/20 clobetasol 1 applic TOPICAL NOW 11/03/18 01/05/20 estradiol [Yuvafem] 10 mcg VAGINAL DIRECTED 11/03/18 01/05/20 montelukast [Singulair] 10 mg PO HS 11/03/18 01/05/20 mupirocin 1 applic TOPICAL PRN PRN 11/03/18 01/05/20 ondansetron HCl [Zofran] 4 mg PO PRN PRN 11/03/18 01/05/20 pravastatin 10 mg PO HS 11/03/18 01/05/20 triamcinolone acetonide 1 applic TOPICAL PRN PRN 11/03/18 01/05/20 budesonide-formoterol HFA 160 2 puff INHALATION BID g 12/02/19 01/05/20 mcg-4.5 mcg/actuation aerosol inhaler fluticasone propionate 110 2 puff INHALATION BID g 12/02/19 01/05/20 mcg/actuation HFA aerosol inhaler Allergies Allergy/AdvReac Type Severity Reaction Status Date / Time diphenhydramine AdvReac Mild Skin Rash Unverified 12/02/19 11:39 [From Benadryl] Iodinated Contrast Media AdvReac Mild Skin Rash Unverified 12/02/19 11:39 Penicillins AdvReac Mild Skin Rash Unverified 12/02/19 11:39 adhesive tape AdvReac Verified 12/02/19 11:39 General Stated Complaint: Abd Prob FORTUNATO: 3 Review of Systems All systems reviewed & are unremarkable except as noted in HPI and below Constitutional Constitutional: Denies chills, Denies fever(s) and Denies weakness Cardiovascular Cardiovascular: Denies chest pain and Denies dyspnea Respiratory Respiratory: Denies cough and Denies dyspnea Genitourinary Genitourinary: Denies dysuria Integumentary/Breasts Skin/Breast: Denies rash Neurologic Neurologic: Denies weakness Psychiatric Psychiatric: Denies depression [facility] Medical History (Updated 01/05/20 @ 02:07 by Mando Samayoa MD) 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 Son No problems noted. Daughter No problems noted. Maternal Grandfather , MVA No problems noted. Paternal Grandfather , 76 No problems noted. Maternal Grandmother , 80s Stroke Paternal Grandmother , 94 Stroke Social History (Updated 10/09/19 @ 18:28 by Lashay Alford) Smoking/Tobacco Use Status: Never Smoking risk assessment performed?: Yes Alcohol Intake: never Drug use: Never Caregiver/Support person: No Household members: spouse Housing: house Do you need help understanding health information?: Never Pets and animals: Yes Pets and animals: dog(s) Sexually active: Yes Do you think of yourself as: straight/heterosexual Current gender identity: female What is your relationship status?: How often do you talk on the phone with friends or family?: three or more times per week How often do you get together with friends or relatives?: decline to answer How often do you attend anglican or islam services?: decline to answer Do you belong to any clubs or organized social groups?: no Panel score (0-1 are the most socially isolated patients): 2 What type of physical activity do you participate in: walking and weight lifting Duration: 45-60 minutes/day Frequency: daily Maria Elena/Rastafarian: Religion Special maria elena needs: No Seatbelt use: always Drive intox or ride w/intox school bus driver/teacher assistant: No Do you feel safe at home: Yes Do you feel safe in your relationship?: Yes Exam Const General: no acute distress Orientation: alert HENMT Head: normal to inspection Ears: external ears normal General nose exam: external nose normal Mouth: moist mucous membranes Eyes General: appearance normal, both eyes and all related structures Neck Neck: normal visual inspection Resp Effort & Inspection: normal respiratory effort and able to speak in complete sentences Cardio Rate: regular rate GI Palpation: soft Skin General skin exam: no rashes or lesions noted Neuro General: patient alert and patient oriented x3 Extrem General: normal to inspection Psych Mental Status: mental status grossly normal Course Vital Signs Vital signs: Vital Signs Temperature 36.6 C 01/05/20 00:09 Pulse 88 01/05/20 00:09 Respiratory Rate 20 01/05/20 00:09 Blood Pressure 130/69 01/05/20 00:09 Pulse Oximetry 92 01/05/20 00:09 Temperature 36.6 C 01/05/20 00:09 Temperature Source Temporal Artery Scan 01/05/20 00:09 Pulse 88 01/05/20 00:09 Respiratory Rate 20 01/05/20 00:09 Respiratory Effort 01/05/20 00:15 Blood Pressure 130/69 01/05/20 00:09 Blood Pressure Position Sitting 01/05/20 00:09 Pulse Oximetry 92 01/05/20 00:09 Oxygen Delivery Method Room Air 01/05/20 00:09 Oxygen Flow Rate 0 01/05/20 00:09 Lab/Test Results Lab/Test Results: Laboratory Tests Range/Units 01/04/20 01/04/20 01/04/20 00:30 00:30 00:30 WBC (4.4-10.8) 10^3/uL 4.78 RBC (3.93-5.22) 10^6/uL 4.37 Hgb (11.2-15.7) g/dL 14.8 Hct (36.0-46.0) % 45.0 MCV (80-95) fL 103.0 H MCH (27.0-33.0) pg 33.9 H MCHC (32.0-36.0) % 32.9 RDW (11.7-14.6) % 13.2 Plt Count (130-400) 10^3/uL 458 H MPV (8.0-11.0) fL 9.3 Immature Gran % 0.4 Neutrophils % 88.5 Lymphocytes % 6.5 Monocytes % 4.0 Eosinophils % 0.4 Basophils % 0.2 Nucleated RBC % % 0 Absolute Neutrophils (1.2-6.7) 10^3/uL 4.23 Absolute Lymphocytes (1.2-3.4) 10^3/uL 0.31 L Absolute Monocytes (0.1-0.8) 10^3/uL 0.19 Absolute Eosinophils (0.0-0.7) 10^3/uL 0.02 Absolute Basophils (0.0-0.2) 10^3/uL 0.01 PT (9.3-11.0) sec INR (0.9-1.1) APTT (21.0-27.5) sec VBG Lactate (0.6-1.4) mmol/L 2.4 H* Sodium (136-145) mmol/L 143 Potassium (3.5-5.1) mmol/L 3.9 Chloride (98-107) mmol/L 104 Carbon Dioxide (21.0-32.0) mmol/L 29.8 Anion Gap (3-11) mmol/L 9.2 BUN (7-18) mg/dL 13 Creatinine (0.55-1.02) mg/dL 1.20 H Estimated GFR/1.73 m2 (mL/min/1.73m2) 43.91 Glucose (74-106) mg/dL 130 H Calcium (8.5-10.1) mg/dL 9.9 Total Bilirubin (0.2-1.0) mg/dL 0.4 Conjugated Bilirubin (0.00-0.20) mg/dL 0.11 AST (15-37) U/L 55 H ALT (14-59) U/L 56 Alkaline Phosphatase (46-116) U/L 76 Total Protein (6.4-8.2) g/dL 8.4 H Albumin (3.4-5.0) g/dL 4.4 Lipase (73-393) U/L 139 Range/Units 01/04/20 00:30 WBC (4.4-10.8) 10^3/uL RBC (3.93-5.22) 10^6/uL Hgb (11.2-15.7) g/dL Hct (36.0-46.0) % MCV (80-95) fL MCH (27.0-33.0) pg MCHC (32.0-36.0) % RDW (11.7-14.6) % Plt Count (130-400) 10^3/uL MPV (8.0-11.0) fL Immature Gran % Neutrophils % Lymphocytes % Monocytes % Eosinophils % Basophils % Nucleated RBC % % Absolute Neutrophils (1.2-6.7) 10^3/uL Absolute Lymphocytes (1.2-3.4) 10^3/uL Absolute Monocytes (0.1-0.8) 10^3/uL Absolute Eosinophils (0.0-0.7) 10^3/uL Absolute Basophils (0.0-0.2) 10^3/uL PT (9.3-11.0) sec 9.9 INR (0.9-1.1) 1.0 APTT (21.0-27.5) sec 20.6 L VBG Lactate (0.6-1.4) mmol/L Sodium (136-145) mmol/L Potassium (3.5-5.1) mmol/L Chloride (98-107) mmol/L Carbon Dioxide (21.0-32.0) mmol/L Anion Gap (3-11) mmol/L BUN (7-18) mg/dL Creatinine (0.55-1.02) mg/dL Estimated GFR/1.73 m2 (mL/min/1.73m2) Glucose (74-106) mg/dL Calcium (8.5-10.1) mg/dL Total Bilirubin (0.2-1.0) mg/dL Conjugated Bilirubin (0.00-0.20) mg/dL AST (15-37) U/L ALT (14-59) U/L Alkaline Phosphatase (46-116) U/L Total Protein (6.4-8.2) g/dL Albumin (3.4-5.0) g/dL Lipase (73-393) U/L
--- NOTE | 2020-01-05 02:04 | W.PM.HP.N ---
Date of service: 01/05/20 Time of Service: 02:04 Assessment and Plan Assessment and plan (1) Gastroenteritis: Status: Acute Assessment and plan: Acute gastroenteritis. I suspect food poisoning, would consider nonspecific viral. Doubt C diff. Will leave NPO, hydrate and monitor overnight. History of Present Illness History of Present Illness Chief Complaint: diarrhea Narrative: 74 female reports sudden onset watery diarrhea some 2 hours after dinner this evening, no abdominal pain per se, just achey all over. Few episodes vomiting, none since Zofran here in ER. W/U of note for absence of leukocytosis and CT showing fluid throughout bowel. Admitted for further management. History of note for NHL s/p stem cell transplant. On chronic Zithromax prophylaxis. C diff pending. CT chest shows stable nodular and ground glass opacities. 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 Son No problems noted. Daughter No problems noted. Maternal Grandfather , MVA No problems noted. Paternal Grandfather , 76 No problems noted. Maternal Grandmother , 80s Stroke Paternal Grandmother , 94 Stroke Social History Smoking/Tobacco Use Status: Never Smoking risk assessment performed?: Yes Alcohol Intake: never Drug use: Never Caregiver/Support person: No Household members: spouse Housing: house Do you need help understanding health information?: Never Pets and animals: Yes Pets and animals: dog(s) Sexually active: Yes Do you think of yourself as: straight/heterosexual Current gender identity: female What is your relationship status?: How often do you talk on the phone with friends or family?: three or more times per week How often do you get together with friends or relatives?: decline to answer How often do you attend gnosticist or zoroastrian services?: decline to answer Do you belong to any clubs or organized social groups?: no Panel score (0-1 are the most socially isolated patients): 2 What type of physical activity do you participate in: walking and weight lifting Duration: 45-60 minutes/day Frequency: daily Maria Elena/Evangelical: Confucianism Special maria elena needs: No Seatbelt use: always Drive intox or ride w/intox class b driver: No Do you feel safe at home: Yes Do you feel safe in your relationship?: Yes Meds Home Medications and Allergies Home Medications Medication Instructions Recorded Confirmed Type Jakafi 10 mg PO BID 11/03/18 01/05/20 History Serum Eye Drops 11/03/18 12/02/19 History Xiidra 1 drp OPHTHALMIC (EYE) BID 11/03/18 01/05/20 History acyclovir 800 mg PO BID 11/03/18 01/05/20 History azithromycin 250 mg PO DAILY 11/03/18 01/05/20 History benzonatate [Tessalon Perles] 100 mg PO PRN PRN 11/03/18 01/05/20 History clobetasol 1 applic TOPICAL NOW 11/03/18 01/05/20 History estradiol [Yuvafem] 10 mcg VAGINAL DIRECTED 11/03/18 01/05/20 History montelukast [Singulair] 10 mg PO HS 11/03/18 01/05/20 History mupirocin 1 applic TOPICAL PRN PRN 11/03/18 01/05/20 History ondansetron HCl [Zofran] 4 mg PO PRN PRN 11/03/18 01/05/20 History pravastatin 10 mg PO HS 11/03/18 01/05/20 History triamcinolone acetonide 1 applic TOPICAL PRN PRN 11/03/18 01/05/20 History budesonide-formoterol HFA 160 2 puff INHALATION BID g 12/02/19 01/05/20 History mcg-4.5 mcg/actuation aerosol inhaler fluticasone propionate 110 2 puff INHALATION BID g 12/02/19 01/05/20 History mcg/actuation HFA aerosol inhaler Allergies Allergy/AdvReac Type Severity Reaction Status Date / Time diphenhydramine AdvReac Mild Skin Rash Unverified 12/02/19 11:39 [From Benadryl] Iodinated Contrast Media AdvReac Mild Skin Rash Unverified 12/02/19 11:39 Penicillins AdvReac Mild Skin Rash Unverified 12/02/19 11:39 adhesive tape AdvReac Verified 12/02/19 11:39 Exam Narrative Exam Narrative: 130/69, 88, 36.6, 20, 92% 2L (on chronic home O2). HEENT unremarkable; lungs clear; heart tachy/regular; abdomen +BS soft and NT; extremities w/o edema; neuro Ox3 nonfocal Results Labs Result diagrams: 01/04/20 00:30 01/04/20 00:30 Labs: Laboratory Results - last 24 hr 01/04/20 01/04/20 01/04/20 00:30 00:30 00:30 WBC 4.78 RBC 4.37 Hgb 14.8 Hct 45.0 MCV 103.0 H MCH 33.9 H MCHC 32.9 RDW 13.2 Plt Count 458 H MPV 9.3 Immature Gran % 0.4 Neutrophils % 88.5 Lymphocytes % 6.5 Monocytes % 4.0 Eosinophils % 0.4 Basophils % 0.2 Nucleated RBC % 0 Absolute Neutrophils 4.23 Absolute Lymphocytes 0.31 L Absolute Monocytes 0.19 Absolute Eosinophils 0.02 Absolute Basophils 0.01 PT INR APTT VBG Lactate 2.4 H* Sodium 143 Potassium 3.9 Chloride 104 Carbon Dioxide 29.8 Anion Gap 9.2 BUN 13 Creatinine 1.20 H Estimated GFR/1.73 m2 43.91 Glucose 130 H Calcium 9.9 Total Bilirubin 0.4 Conjugated Bilirubin 0.11 AST 55 H ALT 56 Alkaline Phosphatase 76 Total Protein 8.4 H Albumin 4.4 Lipase 139 01/04/20 00:30 WBC RBC Hgb Hct MCV MCH MCHC RDW Plt Count MPV Immature Gran % Neutrophils % Lymphocytes % Monocytes % Eosinophils % Basophils % Nucleated RBC % Absolute Neutrophils Absolute Lymphocytes Absolute Monocytes Absolute Eosinophils Absolute Basophils PT 9.9 INR 1.0 APTT 20.6 L VBG Lactate Sodium Potassium Chloride Carbon Dioxide Anion Gap BUN Creatinine Estimated GFR/1.73 m2 Glucose Calcium Total Bilirubin Conjugated Bilirubin AST ALT Alkaline Phosphatase Total Protein Albumin Lipase Last Vital Signs Temp 36.6 C 01/05/20 00:09 Pulse 88 01/05/20 00:09 Resp 20 01/05/20 00:09 BP 130/69 01/05/20 00:09 Pulse Ox 92 01/05/20 00:09 COVID-19 Screening Have you, or household traveled for leisure in last 14 days?: No Had IN PERSON contact w/suspected or confirmed C-19 person: No
[2020-01-05 02:19] LABS: C Diff PCR Negative (Negative)
[2020-01-05] MEDS: Normal Saline Flush 10 ML SYR IVP (04:35)
[2020-01-05] MEDS: Lactated Ringers 1,000 ML 150 ML IV ×2 (04:36→11:02)
[2020-01-05 06:21] LABS: Bilirubin Negative (Negative); Blood Trace-lysed (Negative); Clarity Clear (Clear); Glucose Negative (Negative); Ketones Negative (Negative); Leukocyte Esterase Small (Negative); Nitrite Negative (Negative); Specific Gravity 1.025 (1.005-1.025); Urobilinogen 0.2 EU/dL (Up TO 0.2); pH 5.5 (5-8)
[2020-01-05 06:22] LABS: Bacteria Negative HPF (Negative); C & S Indicated? No; Casts Negative LPF (Negative); Crystals Few Calcium Oxalate HPF (Negative); Epithelial Cells Rare HPF (Negative); Mucus Negative (Negative); RBC 0-2 HPF (0-2); WBC 0-2 HPF (0-5)
[2020-01-05 08:02] LABS: Anion Gap 6.5 mmol/L (3-11); BUN 14 mg/dL (7-18); CO2 28.5 mmol/L (21.0-32.0); CREATININE 1.16 mg/dL (0.55-1.02); Calcium 8.4 mg/dL (8.5-10.1); Chloride 108 mmol/L (98-107); Estimated GFR 45.67 (mL/min/1.73m2); Glucose 123 mg/dL (74-106); Potassium 3.6 mmol/L (3.5-5.1); Sodium 143 mmol/L (136-145)
[2020-01-05] MEDS: Acyclovir 400 MG TAB 800 MG PO (08:16)
[2020-01-05] MEDS: Azithromycin 250 MG TAB PO (08:16)
[2020-01-05] MEDS: Budesonide/Formoterol 160/4.5 6 GM 60 PUFF INH IH (08:28)
--- NOTE | 2020-01-05 11:58 | RESPIRATORY ---
Discussed with Pt her home oxygen requirements and Pt stated that she wears her oxygen at 2 to 3 lpm only at night. I contacted her home oxygen equipment company, [employer], which stated that the Pt's prescription was for 3 lpm continuous and that her home machine did reach a max of 5 lpm oxygen.
[2020-01-05 14:59] LABS: COVID-19 RT-PCR UVMMC Result Negative (Negative)
--- NOTE | 2020-01-05 15:49 | W.PM.DS.N ---
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 She also c/o shortness of breath but it was suspect her symptoms are due to feeling anxious with her diarrhea and abdominal cramping. She underwent a ct of the chest/abd/pelvis to evaluate for pna, she has iodinated contrast allergy so received noncontrast. There was no evidence of dvt on exam and no significant hypoxia or tachycardia to suggest PE. It shows chronic lung changes consistent with gvhd, and abd/pelvis shows findings consistent with gastroenteritis. She was having significant diarrhea and felt to weak to go home so she was referred to observation to med/surg for ongoing IV hydration, antiemetics, and further monitoring. overnight she rested comfortably and symptoms resolved. In the morning she is tolerating oral liquids and is hemodynamically stable. A cortisol test was added to am labs and to the admission labs as per Dr Mishra recommendations. He recommends hydrocortisone 40 mg today and tomorrow as reasonable dosing now that she is improving. This was discussed with the patient and since she is feeling better she prefers to wait to see if her symptoms continue to improve. She is hemodyanically stable and oxygenating well on room air. she will be discharged to home and will f/u outpatient or return sooner to ED if needed. Home Meds and New Rx's Prescriptions: Continued Jakafi 10 mg Tablet 10 mg PO BID RF: 0 montelukast [Singulair] 10 mg Tablet 10 mg PO HS RF: 0 azithromycin 250 mg Tablet 250 mg PO DAILY RF: 0 acyclovir 200 mg Capsule 800 mg PO BID RF: 0 pravastatin 10 mg Tablet 10 mg PO HS RF: 0 Xiidra 5 % Dropperette 1 drp ophthalmic (eye) BID RF: 0 Serum Eye Drops RF: 0 clobetasol 0.05 % Gel 1 applic TOPICAL NOW RF: 0 triamcinolone acetonide 0.1 % Cream 1 applic TOPICAL PRN PRNRF: 0 estradiol [Yuvafem] 10 mcg Tablet 10 mcg VAGINAL DIRECTED RF: 0 mupirocin 2 % Ointment 1 applic TOPICAL PRN PRNRF: 0 ondansetron HCl [Zofran] 4 mg Tablet 4 mg PO PRN PRNRF: 0 benzonatate [Tessalon Perles] 100 mg Capsule 100 mg PO PRN PRNRF: 0 Flovent HFA 110 mcg/actuation HFA aerosol inhaler 2 puff INHALATION BID RF: 0 budesonide-formoterol [Symbicort] 160-4.5 mcg/actuation HFA aerosol inhaler 2 puff INHALATION BID RF: 0 Discharge Instructions Instructions: Acute Nausea and Vomiting (DC) Additional Instructions: Resume usual medications as directed. take your hydrocortisone as directed by endocrinology, Dr Martin. It was discussed to take 40 mg today and 40 mg tomorrow but you wanted to wait to see if you felt better and take only if needed. Clear liquids to stay well hydrated, advance diet as tolerated. return to the Emergency department immediately for new or worsening symptoms or ability to take your medications. discussed with Dr Cherry who is in agreement Referrals: Jamar Rodriguez [Primary Care Provider] - Leonard Martin [ [facility] STAFF PHYSICIAN] - (keep scheduled follow up appointment, call sooner for new or worsening problems) Activity:: Activity as Tolerated Equipment/Supplies:: No Equipment Needed Diet:: As Tolerated Discharge Orders Discharge Orders: Discharge Order (Routine); Ordered 01/05/20 Ordered By: Geno Haywood DS: Summary Status at Discharge Functional status at discharge: independent ambulation Overall status at discharge: patient is progressing back to baseline Mental Status: mental status grossly normal and other (anxious) Speech and Movement: speech and movement normal Mood: other (anxious) Affect: anxious affect Exam Const General: cooperative, healthy appearing, comfortable and no acute distress Nutritional Appearance: average body habitus Orientation: alert, awake and oriented x3 HENMT Head: normal to inspection, normocephalic and atraumatic Mouth: oral mucosae normal Resp Effort & Inspection: normal respiratory effort, able to speak in complete sentences, no respiratory distress and not tachypneic Auscultation: lung sounds not diminished and rales (bases, fine, no wheezing or coarse breath sounds) bilaterally Cardio Rate: regular rate Rhythm: regular rhythm GI Inspection: normal to inspection Palpation: soft, not firm, no guarding and nontender Auscultation: normal bowel sounds Skin General skin exam: no rashes or lesions noted Neuro General: patient alert, patient awake and patient oriented x3 Cranial Nerves: CN's II-XI intact bilaterally Cognition: normal cognition Speech: speech normal Extrem General: normal to inspection, full ROM and no pedal edema Psych Appearance: grossly normal Mental Status: mental status grossly normal and other (anxious) Speech and Movement: speech and movement normal Mood: other (anxious) Affect: anxious affect Attitude: cooperative Thought Process: perseverating Thought Content: normal DS: Data Vitals/I&O Vitals and I&O: Vital Signs Temperature 37.5 C 01/05/20 08:21 Temperature Source Temporal Artery Scan 01/05/20 08:21 Pulse 94 H 01/05/20 08:21 Pulse Rhythm Regular 01/05/20 10:34 Respiratory Rate 18 01/05/20 08:21 Respiratory Effort Non-Labored 01/05/20 10:34 Respiratory Depth Normal 01/05/20 10:34 Respiratory Pattern Normal 01/05/20 10:34 Blood Pressure 102/61 01/05/20 08:21 Blood Pressure Position Sitting 01/05/20 00:09 Pulse Oximetry 94 01/05/20 08:21 Oxygen Delivery Method Nasal Cannula 01/05/20 08:21 Oxygen Flow Rate 3.5 01/05/20 08:21 Pain Level 0 01/05/20 08:21 Intake & Output 01/04/20 01/05/20 01/05/20 23:59 11:59 23:59 Intake Total 1974 Output Total 300 / 300 Balance 1675 / 1675 Weight 55.338 kg Intake: IV 1974 Output: Urine 300 / 300 Other: Urine Color Light Jannet Urine Appearance Clear Urine Odor Strong Stool Size Small Stool Characteristics Soft Brown Voiding Methods Toilet Data Completed and Pending Labs on day of discharge: Labs from last 24 hours 01/05/20 01/05/20 01/05/20 07:07 07:07 01:10 WBC RBC Hgb Hct MCV MCH MCHC RDW Plt Count MPV Immature Gran % Neutrophils % Lymphocytes % Monocytes % Eosinophils % Basophils % Nucleated RBC % Absolute Neutrophils Absolute Lymphocytes Absolute Monocytes Absolute Eosinophils Absolute Basophils PT INR APTT VBG Lactate Sodium 143 Potassium 3.6 Chloride 108 H Carbon Dioxide 28.5 Anion Gap 6.5 BUN 14 Creatinine 1.16 H Estimated GFR/1.73 m2 45.67 Glucose 123 H Calcium 8.4 L Total Bilirubin Conjugated Bilirubin AST ALT Alkaline Phosphatase Total Protein Albumin Lipase Urine Color Urine Clarity Urine pH Ur Specific [place] Urine Protein Urine Ketones Urine Blood Urine Nitrite Urine Bilirubin Urine Urobilinogen Ur Leukocyte Esterase Urine RBC Urine WBC Ur Epithelial Cells Urine Crystals Urine Bacteria Urine Casts Urine Mucus Ur Culture Indicated? Urine Glucose Stl C.difficile Tox PCR Negative COVID-19 PCR Nasopharyn COVID-19 PCR Miscellaneous Test Pending Ref Test Perform Site 01/05/20 01/04/20 01/04/20 00:35 05:15 00:30 WBC RBC Hgb Hct MCV MCH MCHC RDW Plt Count MPV Immature Gran % Neutrophils % Lymphocytes % Monocytes % Eosinophils % Basophils % Nucleated RBC % Absolute Neutrophils Absolute Lymphocytes Absolute Monocytes Absolute Eosinophils Absolute Basophils PT 9.9 INR 1.0 APTT 20.6 L VBG Lactate Sodium Potassium Chloride Carbon Dioxide Anion Gap BUN Creatinine Estimated GFR/1.73 m2 Glucose Calcium Total Bilirubin Conjugated Bilirubin AST ALT Alkaline Phosphatase Total Protein Albumin Lipase Urine Color Yellow Urine Clarity Clear Urine pH 5.5 Ur Specific [place] 1.025 Urine Protein Negative Urine Ketones Negative Urine Blood Trace-lysed H Urine Nitrite Negative Urine Bilirubin Negative Urine Urobilinogen 0.2 Ur Leukocyte Esterase Small H Urine RBC 0-2 Urine WBC 0-2 Ur Epithelial Cells Rare Urine Crystals Few calcium oxalate Urine Bacteria Negative Urine Casts Negative Urine Mucus Negative Ur Culture Indicated? No Urine Glucose Negative Stl C.difficile Tox PCR COVID-19 PCR Negative Nasopharyn COVID-19 PCR Not Applicable Miscellaneous Test Ref Test Perform Site [facility] 01/04/20 01/04/20 01/04/20 00:30 00:30 00:30 WBC 4.78 RBC 4.37 Hgb 14.8 Hct 45.0 MCV 103.0 H MCH 33.9 H MCHC 32.9 RDW 13.2 Plt Count 458 H MPV 9.3 Immature Gran % 0.4 Neutrophils % 88.5 Lymphocytes % 6.5 Monocytes % 4.0 Eosinophils % 0.4 Basophils % 0.2 Nucleated RBC % 0 Absolute Neutrophils 4.23 Absolute Lymphocytes 0.31 L Absolute Monocytes 0.19 Absolute Eosinophils 0.02 Absolute Basophils 0.01 PT INR APTT VBG Lactate 2.4 H* Sodium 143 Potassium 3.9 Chloride 104 Carbon Dioxide 29.8 Anion Gap 9.2 BUN 13 Creatinine 1.20 H Estimated GFR/1.73 m2 43.91 Glucose 130 H Calcium 9.9 Total Bilirubin 0.4 Conjugated Bilirubin 0.11 AST 55 H ALT 56 Alkaline Phosphatase 76 Total Protein 8.4 H Albumin 4.4 Lipase 139 Urine Color Urine Clarity Urine pH Ur Specific [place] Urine Protein Urine Ketones Urine Blood Urine Nitrite Urine Bilirubin Urine Urobilinogen Ur Leukocyte Esterase Urine RBC Urine WBC Ur Epithelial Cells Urine Crystals Urine Bacteria Urine Casts Urine Mucus Ur Culture Indicated? 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 Son No problems noted. Daughter No problems noted. Maternal Grandfather , MVA No problems noted. Paternal Grandfather , 76 No problems noted. Maternal Grandmother , 80s Stroke Paternal Grandmother , 94 Stroke Social History Smoking/Tobacco Use Status: Never Smoking risk assessment performed?: Yes Alcohol Intake: never Drug use: Never Caregiver/Support person: No Household members: spouse Housing: house Do you need help understanding health information?: Never Pets and animals: Yes Pets and animals: dog(s) Sexually active: Yes Do you think of yourself as: straight/heterosexual Current gender identity: female What is your relationship status?: How often do you talk on the phone with friends or family?: three or more times per week How often do you get together with friends or relatives?: decline to answer How often do you attend buddhist or jainism services?: decline to answer Do you belong to any clubs or organized social groups?: no Panel score (0-1 are the most socially isolated patients): 2 What type of physical activity do you participate in: walking and weight lifting Duration: 45-60 minutes/day Frequency: daily Maria Elena/Buddhism: Religion Special maria elena needs: No Seatbelt use: always Drive intox or ride w/intox cdl bulk driver: No Do you feel safe at home: Yes Do you feel safe in your relationship?: Yes
== END 2020-01-05 17:11 | disposition home or self-care (01) ==
LOC: ER 02:10 → MS 03:24
PROVIDERS: Nurse Practitioner Acute Care; Admitting Provider General Practice; Emergency Provider Emergency Medicine; PCP Family Medicine; Visit Provider General Practice
DX: K52.9 Noninfective gastroenteritis and colitis, unspecified (principal); E86.0 Dehydration; Z94.84 Stem cells transplant status; E09.9 Drug or chemical induced diabetes mellitus without complications; T38.0X5A Adverse effect of glucocorticoids and synthetic analogues, initial encounter; I48.0 Paroxysmal atrial fibrillation; Z86.73 Personal history of transient ischemic attack (TIA), and cerebral infarction without residual deficits; Z94.81 Bone marrow transplant status; C84.A0 Cutaneous T-cell lymphoma, unspecified, unspecified site; D89.811 Chronic graft-versus-host disease
CPT/HCPCS: 36415; 71250; 80048; 80053; 82533; 83690; 87449; 87493; 96361; 96374; 99217; 99222; 99285; U0003; 74176; 81003; 81015; 82248; 83605; 85025; 85610; 85730; 99218; G0378; J2405

== ENCOUNTER 2020-08-10 02:22 | Outpatient (CLI) | payer OTHER, SELFPAY ==
[2020-08-11 15:25] LABS: Adrenocorticotropic Hormone, P <5.0 pg/mL
[2020-08-12 08:14] LABS: 4/8 Ratio 0.32 (>=0.90); Absolute CD3 814 Cells/uL (840-2,669); Absolute CD8 573 Cells/uL (154-1,097); CD3 77 % (56-84); CD4 18 % (31-64); CD8 54 % (9-39)
== END 2020-08-10 02:23 | disposition home or self-care (01) ==
LOC: LBO 02:22
PROVIDERS: PCP Family Medicine; Visit Provider Internal Medicine
DX: E27.40 Unspecified adrenocortical insufficiency (principal)
CPT/HCPCS: 36415; 82533; 82024; 86359; 86360

== ENCOUNTER 2020-10-11 04:50 | Outpatient (CLI) | payer OTHER, SELFPAY ==
[2020-10-11 12:44] LABS: HCT 39.2 % (36.0-46.0); HGB 12.7 g/dL (11.2-15.7); MCH 33.2 pg (27.0-33.0); MCHC 32.4 % (32.0-36.0); MCV 102.6 fL (80-95); MPV 9.2 fL (8.0-11.0); Platelet Count 443 10^3/uL (130-400); RBC 3.82 10^6/uL (3.93-5.22); RDW 13.3 % (11.7-14.6); RDW-SD 50.2 fL; WBC 5.07 10^3/uL (4.4-10.8)
[2020-10-11 13:06] LABS: ALT 37 U/L (14-59); AST 52 U/L (15-37); Alkaline Phosphatase 78 U/L (46-116); Anion Gap 7.5 mmol/L (3-11); BUN 13 mg/dL (7-18); Bilirubin, Total 0.3 mg/dL (0.2-1.0); CO2 30.5 mmol/L (21.0-32.0); CREATININE 0.9 mg/dL (0.55-1.02); Calcium 9.3 mg/dL (8.5-10.1); Calculated LDL 153 mg/dL (<100); Chloride 105 mmol/L (98-107); Cholesterol 267 mg/dL (<200); Glucose 94 mg/dL (74-106); HDL Cholesterol 94 mg/dL (40-60); Potassium 4.1 mmol/L (3.5-5.1); Sodium 143 mmol/L (136-145); Total Protein 7.1 g/dL (6.4-8.2); Triglyceride 104 mg/dL (<150)
[2020-10-11 13:13] LABS: Hemoglobin A1C 6.4 % (<5.7)
== END 2020-10-11 04:51 | disposition home or self-care (01) ==
LOC: LOS 04:50
PROVIDERS: PCP Family Medicine; Visit Provider Family Medicine
DX: E11.9 Type 2 diabetes mellitus without complications (principal); E78.5 Hyperlipidemia, unspecified; E27.40 Unspecified adrenocortical insufficiency
CPT/HCPCS: 36415; 80053; 80061; 85027; 83036

== ENCOUNTER 2020-12-15 01:33 | Outpatient (CLI) | payer OTHER, SELFPAY ==
--- NOTE | 2020-12-15 | DI.DEXA_ITS ---
Exam(s) XR DEXA BONE DENSITY W/WO KARLA EXAM: XR DEXA BONE DENSITY W/WO KARLA CLINICAL HISTORY: OSTEOPOROSIS, M81.0 TECHNIQUE: Routine DEXA evaluation of the lumbar spine, hip, or forearm. COMPARISON: CR XR DEXA BONE DENSITY W/WO KARLA from 11/17/2019 FINDINGS: Performed on a [employer] unit. Lateral image: No compression fracture evident. Lumbar Spine total T-score: -2.4. Prior 2019 reading was -2.3 Hip total T-score:-2.7. Prior 2019 reading was -2.6 Independent reading at the level of the femoral neck yields at T-score of -2.8. Forearm total T-score: -1.7 IMPRESSION: Bone mineral density measures in the osteoporosis range. Fracture risk is high. Note: Any spine fracture indicates 5x risk for subsequent spine fracture and 2x risk for subsequent h ip fracture. World Health Organization criteria for BMD interpretation classify patients: Normal...... T- Score at or above -1.0 Osteopenic... T- Score between -1.0 and -2.5 Osteoporosis... T-Score at or below -2.5
== END 2020-12-15 01:53 ==
PROVIDERS: PCP Family Medicine; Visit Provider Family Medicine
DX: M81.0 Age-related osteoporosis without current pathological fracture (principal); Z13.820 Encounter for screening for osteoporosis
CPT/HCPCS: 77080

== ENCOUNTER 2020-12-15 01:34 | Outpatient (CLI) | payer OTHER, SELFPAY ==
--- NOTE | 2020-12-15 13:35 | DI.MAMMO_ITS ---
Exam(s) MG MAMMO SCREENING 60 MIN DUR EXAM: MG MAMMO SCREENING 60 MIN DUR CLINICAL HISTORY: breast cancer screening,PERSONAL H/O BREAST CA, Z85.3. TECHNIQUE: Bilateral full field digital CC and MLO mammographic images were obtained with 3D tomosyn thesis and utilizing computer aided detection (CAD). COMPARISON: Prior mammograms dating back to 2017, the most recent being October 2019 this patient has had prior right breast lumpectomy for malignancy. FINDINGS: Architectural distortion, scarring, and skin thickening-indrawing at lumpectomy site on the right katie e are unchanged. No new significant right breast findings. The left side there is a heavily calcified fibroadenoma again noted laterally. Microcalcifications i n the region of the biopsy marker clip in the upper-outer quadrant remain unchanged, not increased. No other significant focal left breast findings. No new significant architectural distortion in the left breast. IMPRESSION: 1. Continued stable appearance of the right breast lumpectomy site. No radiographic evidence of karthikeyan gnancy in the right breast. 2. Stable benign-appearing left breast findings. BI-RADS Category 2 - Benign Findings Breast Density - Category B - Scattered areas of fibroglandular density Breast density Category C or D implies that the patient has dense breast tissue. Dense breast tissue can make it harder to find cancer on a mammogram. Dense breast tissue is also associated with an incr eased risk of breast cancer. This information about the result of the mammogram report was provided to the patient to raise their awareness. Use this report when you speak with the patient about their risks for breast cancer, which includes their family history. At that time, you may recommend additional screening tests (Ultrasoun d or MRI) as these tests may add significant information. A negative radiographic report should not delay biopsy if a dominant or clinically suspicious mass is present. Up to ten percent of cancers are not identified on mammography. A negative report may reinforce clinical impression. Adenosis and dense breasts may obscure an underlying neoplasm. False positive reports average 6 to 10%. Patient will receive a letter notifying them of these results.
== END 2020-12-15 01:54 ==
PROVIDERS: PCP Family Medicine; Visit Provider Family Medicine
DX: Z85.3 Personal history of malignant neoplasm of breast (principal); Z12.31 Encounter for screening mammogram for malignant neoplasm of breast
CPT/HCPCS: 77063; 77067

== ENCOUNTER 2021-02-16 18:59 | Outpatient (REF) | payer OTHER, SELFPAY ==
[2021-02-16 18:16] LABS: Bilirubin Negative (Negative); Blood Trace-intact (Negative); Clarity Clear (Clear); Glucose Negative (Negative); Ketones Negative (Negative); Leukocyte Esterase Trace (Negative); Nitrite Negative (Negative); Specific Gravity 1.015 (1.005-1.025); Urobilinogen 0.2 EU/dL (Up TO 0.2)
[2021-02-16 18:27] LABS: Bacteria Rare HPF (Negative); C & S Indicated? No; Casts Negative LPF (Negative); Crystals Negative HPF (Negative); Epithelial Cells Few HPF (Negative); Mucus Negative (Negative); RBC 0-2 HPF (0-2)
== END 2021-02-16 19:00 | disposition home or self-care (01) ==
LOC: LBN 18:59
PROVIDERS: PCP Family Medicine; Visit Provider Nurse Practitioner
DX: R35.0 Frequency of micturition (principal)
CPT/HCPCS: 81003; 81015

== ENCOUNTER 2021-02-23 04:26 | Outpatient (CLI) | payer OTHER, SELFPAY ==
[2021-02-23] MEDS: Albuterol HFA 18 GM 200 PUFF INH IH (15:06)
[2021-02-23] MEDS: Inhaler, Assist Device 1 EACH MC (15:07)
--- NOTE | 2021-02-24 12:18 | W.PFT ---
Date of service: 02/23/21 Time of Service: 13:14 Pulmonary Function Test Result Requesting Provider Melinda Mix Indications: Dyspnea on exertion Interpretation Spirometry: There is severe airflow limitation. There is no significant bronchodilator response. Lung Volumes: There is evidence of air trapping. Diffusion Capacity: Corrected diffusion is reduced Airway Pressure: Airways resistance is elevated Impression Severe airflow obstruction with air trapping and a reduced diffusion. Clinical Correlation therefore is recommended.
== END 2021-02-23 04:27 | disposition home or self-care (01) ==
PROVIDERS: PCP Family Medicine; Visit Provider Family Medicine
DX: R06.09 Other forms of dyspnea (principal); R94.2 Abnormal results of pulmonary function studies; T86.5 Complications of stem cell transplant; D89.813 Graft-versus-host disease, unspecified; C84.A0 Cutaneous T-cell lymphoma, unspecified, unspecified site
CPT/HCPCS: 94060; 94726; 94729

== ENCOUNTER 2021-03-14 03:53 | Outpatient (CLI) | payer OTHER, SELFPAY ==
[2021-03-15 10:55] LABS: COVID-19 RT-PCR UVMMC Result Negative (Negative)
== END 2021-03-14 03:54 | disposition home or self-care (01) ==
LOC: LBO 03:53
PROVIDERS: PCP Family Medicine; Visit Provider Student in an Organized Health Care Education/Training Program
DX: J44.9 Chronic obstructive pulmonary disease, unspecified (principal)
CPT/HCPCS: U0003; U0005

== ENCOUNTER 2021-03-16 03:20 | Outpatient (RCR) | payer OTHER, SELFPAY | END 2021-03-20 23:59 | disposition home or self-care (01) | LOC: INF 03:20 | PROVIDERS: PCP Family Medicine; Visit Provider Family Medicine | DX: Z29.8 Encounter for other specified prophylactic measures (principal); Z94.84 Stem cells transplant status | CPT/HCPCS: 96372; Q0220 ==

== ENCOUNTER 2021-04-25 03:52 | Outpatient (CLI) | payer OTHER, SELFPAY ==
[2021-04-26 12:58] LABS: COVID-19 RT-PCR UVMMC Result Negative (Negative)
== END 2021-04-25 03:53 | disposition home or self-care (01) ==
LOC: LBO 03:53
PROVIDERS: PCP Family Medicine; Visit Provider Student in an Organized Health Care Education/Training Program
DX: Z20.822 Contact with and (suspected) exposure to COVID-19 (principal)
CPT/HCPCS: U0003; U0005

== ENCOUNTER 2021-04-27 02:07 | Outpatient (RCR) | payer OTHER, SELFPAY ==
[2021-04-27] MEDS: ZOLEDRONIC ACID/MANNITOL/WATER 5 MG/100 ML BTL 200 MG IVPB (11:15)
[2021-04-27] MEDS: Normal Saline Flush 10 ML SYR IVP (12:08)
== END 2021-05-18 23:59 | disposition home or self-care (01) ==
LOC: INF 02:07
PROVIDERS: PCP Family Medicine; Visit Provider Family Medicine
DX: M81.0 Age-related osteoporosis without current pathological fracture (principal); Z94.84 Stem cells transplant status
CPT/HCPCS: 96365; 96372; Q0221; J3489

== ENCOUNTER 2021-04-28 09:16 | Inpatient (IN) | payer OTHER, SELFPAY ==
[2021-04-28] VITALS (53 sets, daily range): BP systolic 104–151; BP diastolic 50–78; PULSE 0–115; RESP 14–36; TEMP 36.8–38.6; O2SAT 94–100
--- NOTE | 2021-04-28 09:15 | RT.EKG_ITS ---
APPROVED REPORT Exam: Resting ECG Reason for Exam: Dyspnea Patient Location: E HR:100 bpm ECG Measurements Heart Rate 100 AXIS MO 125 P 73 QRSd 76 QRS 47 QT 319 T 54 QTc 412 Conclusion Sinus tachycardia...rate> 99
[2021-04-28 09:57] LABS: Abs Immature Grans 0.06 10^3/uL (0.0-0.06); HCT 35.3 % (36.0-46.0); HGB 11.5 g/dL (11.2-15.7); MCHC 32.6 % (32.0-36.0); MCV 101.4 fL (80-95); MPV 8.6 fL (8.0-11.0); Nucleated RBC 0 %; Platelet Count 429 10^3/uL (130-400); RBC 3.48 10^6/uL (3.93-5.22); RDW 14.2 % (11.7-14.6); RDW-SD 52.7 fL; WBC 10.75 10^3/uL (4.4-10.8)
[2021-04-28 10:12] LABS: Absolute Eosinophil Count 0.22 10^3/uL (0.0-0.7); Absolute Lymphocyte Count 0.32 10^3/uL (1.2-3.4); Absolute Monocyte Count 0.32 10^3/uL (0.1-0.8); Absolute Neutrophil Count 9.89 10^3/uL (1.2-6.7); Bands % 8; Diff Comment Manual Differential; RBC Morphology Normal
[2021-04-28 10:14] LABS: ALT 65 U/L (14-59); AST 59 U/L (15-37); Albumin 3.2 g/dL (3.4-5.0); Alkaline Phosphatase 92 U/L (46-116); Anion Gap 5.4 mmol/L (3-11); BUN 12 mg/dL (7-18); Bilirubin, Total 0.7 mg/dL (0.2-1.0); CO2 28.6 mmol/L (21.0-32.0); Calcium 8.8 mg/dL (8.5-10.1); Chloride 103 mmol/L (98-107); Estimated GFR 53.91 (mL/min/1.73m2); Glucose 157 mg/dL (74-106); Potassium 3.9 mmol/L (3.5-5.1); Sodium 137 mmol/L (136-145); Total Protein 6.6 g/dL (6.4-8.2); Troponin I < 50 ng/L (<or=60)
--- NOTE | 2021-04-28 10:30 | ED.GENADUL_ITS ---
Discharge Plan Disposition Patient Disposition: [facility] INPATIENT Condition: Serious Discharge Details Chief Complaint: SOB Clinical Impression: Pulmonary infiltrate, Cavitary lung disease, Fever and chills Primary Care Provider: Melinda Mix ED Provider: Tom Katz Home Meds and New Rx's Prescriptions: No Action hydrocortisone 5 mg tablet 5 mg PO .COMPLEX Qty: 1 0RF Rx Instructions: 5 mg PO 1 tab am and 0.5tab noon; levalbuterol tartrate 45 mcg/actuation HFA aerosol inhaler 2 inh inhalation Q6H 0RF cholecalciferol (vitamin D3) 25 mcg (1,000 unit) capsule 25 mcg PO DAILY 0RF Calcium 600 with Vitamin D3 600 mg-10 mcg (400 unit) tablet,chewable See Rx Instructions PO DAILY 0RF Rx Instructions: 2 chews PO daily; metronidazole [Metrogel] 1 % gel 1 applic topical DAILY Qty: 60 1RF hydroxyzine HCl 10 mg tablet 10 mg PO TID PRN (Reason: itching) Qty: 20 0RF Jakafi 10 mg Tablet 10 mg PO BID 0RF montelukast [Singulair] 10 mg Tablet 10 mg PO HS 0RF azithromycin 250 mg Tablet 250 mg PO DAILY 0RF Rx Instructions: prophylaxis acyclovir 200 mg Capsule 800 mg PO BID 0RF pravastatin 10 mg Tablet 10 mg PO HS 0RF Xiidra 5 % Dropperette 1 drp ophthalmic (eye) BID 0RF triamcinolone acetonide 0.1 % Cream 1 applic TOPICAL PRN PRN0RF mupirocin 2 % Ointment 1 applic TOPICAL PRN PRN0RF ondansetron HCl [Zofran] 4 mg Tablet 4 mg PO PRN PRN0RF benzonatate [Tessalon Perles] 100 mg Capsule 100 mg PO PRN PRN0RF budesonide-formoterol [Symbicort] 160-4.5 mcg/actuation HFA aerosol inhaler 2 puff INHALATION BID 0RF clobetasol 0.05 % gel 1 applic TOPICAL DAILY PRN0RF Flovent HFA 110 mcg/actuation HFA aerosol inhaler 2 puff INHALATION BID 0RF Medical Decision Making 1038 --76-year-old female with multiple medical problems including history of cutaneous T-cell lymphoma, status post bone marrow transplant, mnmyn-kivyum-nirj disease, adrenal insufficiency on corticosteroids, immunosuppressive, received first dose of Reclast yesterday for osteoporosis and subsequently has developed flulike symptoms including fever chills as well as increased shortness of breath. Patient does have chronic cough and notes that sputum has a brown tinge which has happened in the past. She does note slightly increased sputum production today. EKG was reviewed and interpreted by me: Please see report, sinus tachycardia 100 bpm, normal axis, no STEMI. Consider medication reaction versus pneumonia versus less likely COVID-19 or pulmonary embolism. Plan to obtain CT of the chest as well as rapid Covid testing. -- COvid neg. flu neg. -- CT chest interpreted by radiology: IMPRESSION: 1. No evidence of acute pulmonary emboli.? No evidence of pulmonary infarction.No pleural effusions. 2. However, when compared to the prior CT scan of 01/05/2020 there increasing bilateral nodular infiltrates as described above. One of the nodular infiltrates which is in the right upper lobe is cavitated. This measures 1 5 x 1.5 cm. Main consideration is for infectious/inflammatory versus malignancy. Cannot exclude fungal, given the history here. 3. There is no obvious intrathoracic adenopathy Results discussed with pt. Inbitially, patient requesting discharge. Augmentin 875 given and IVF bolus initiated. 1330 -- Patient was given LR 800mL IVF and remains tachycardic and on reassessment continues to feel generallyunwell. Has not been able toprovide sputum specimen as yet. Plan to admit for persistent tachycardia and potential PNA treatment to include IVF antibiotics and continued monitoring. 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 I spoke with Dr. Mitchell and discussed ED presentation course including diagnostics, he will admit the patient. HPI General Date/Time Provider Initiated Documentation: 04/28/21 09:23 . Limitations to Documentation: no limitations . Information obtained by: patient . HPI Narrative: 76-year-old female with multiple medical problems including history of COPD, cutaneous T-cell lymphoma, status post bone marrow transplant, subsequent owbng-plhpvq-lxlt disease, adrenal insufficiency, on immunosuppressive, here with chief complaint of generally not feeling well. Patient notes she received her first dose of Reclast yesterday and then yesterday evening started to feel generally unwell. Symptoms are moderate. She notes feeling fever and chills as well as increased shortness of breath, progressive since last night. Patient notes she typically uses oxygen at night and with any exercise. Today she feels increased shortness of breath and has been using oxygen regularly. Oxygen has helped with shortness of breath. Patient is fully COVID-19 vaccinated, boosted and has received evusheld. Related Data Home Medications Medication Instructions Recorded Confirmed acyclovir 200 mg capsule 800 mg PO BID 11/03/18 04/28/21 azithromycin 250 mg tablet 250 mg PO DAILY 11/03/18 04/28/21 benzonatate 100 mg capsule 100 mg PO PRN PRN 11/03/18 04/28/21 (Tessalon Perljeff) lifitegrast 5 % eye drops in a 1 drp OPHTHALMIC (EYE) BID 11/03/18 04/28/21 dropperette (Xiidra) montelukast 10 mg tablet 10 mg PO HS 11/03/18 04/28/21 (Singulair) mupirocin 2 % topical ointment 1 applic TOPICAL PRN PRN 11/03/18 04/28/21 ondansetron HCl 4 mg tablet 4 mg PO PRN PRN 11/03/18 04/28/21 (Zofran) pravastatin 10 mg tablet 10 mg PO HS 11/03/18 04/28/21 ruxolitinib 10 mg tablet (Jakafi) 10 mg PO BID 11/03/18 04/28/21 triamcinolone acetonide 0.1 % 1 applic TOPICAL PRN PRN 11/03/18 04/28/21 topical cream budesonide-formoterol HFA 160 2 puff INHALATION BID g 12/02/19 04/28/21 mcg-4.5 mcg/actuation aerosol inhaler (Symbicort) clobetasol 0.05 % topical gel 1 applic TOPICAL DAILY PRN g 09/19/20 04/28/21 hydrocortisone 5 mg tablet 5 mg PO .COMPLEX #1 tab 09/19/20 04/28/21 fluticasone propionate 110 2 puff INHALATION BID g 01/03/21 04/28/21 mcg/actuation HFA aerosol inhaler (Flovent HFA) levalbuterol tartrate 45 2 inh INHALATION Q6H 03/03/21 04/28/21 mcg/actuation aerosol inhaler calcium carbonate 600 mg-vitamin See Rx Instructions PO DAILY tab 04/04/21 04/28/21 D3 10 mcg (400 unit) chewable tablet (Calcium 600 with Vitamin D3) cholecalciferol (vitamin D3) 25 25 mcg PO DAILY 04/04/21 04/28/21 mcg (1,000 unit) capsule hydroxyzine HCl 10 mg tablet 10 mg PO TID PRN #20 tab 04/17/21 04/28/21 metronidazole 1 % topical gel 1 applic TOPICAL DAILY #60 g 04/17/21 04/28/21 (Metrogel) Previous Rx's Medication Instructions Recorded hydrocortisone 5 mg tablet 5 mg PO .COMPLEX #1 tab 09/19/20 hydroxyzine HCl 10 mg tablet 10 mg PO TID PRN #20 tab 04/17/21 metronidazole 1 % topical gel 1 applic TOPICAL DAILY #60 g 04/17/21 (Metrogel) Allergies Allergy/AdvReac Type Severity Reaction Status Date / Time adhesive tape AdvReac Verified 04/28/21 09:40 General Stated Complaint: SOB FORTUNATO: 2 Review of Systems All systems reviewed & are unremarkable except as noted in HPI and below Constitutional Constitutional: Reports chills, Reports fever(s) and Reports lethargy Cardiovascular Cardiovascular: Reports chest pain (tightness) and Reports dyspnea Respiratory Respiratory: Reports cough (chronic) and Reports dyspnea PFSH All Active Problems (Updated 04/28/21 @ 13:38 by Tom Katz MD) Pulmonary infiltrate (Acute) Cavitary lung disease (Acute) Fever and chills (Acute) COPD (chronic obstructive pulmonary disease) (Chronic) due to GREG Bronchiolitis obliterans syndrome (Acute) Diabetes mellitus (Chronic) Gastroenteritis (Acute) Dehydration (Acute) Adrenal insufficiency (Acute) both adrenal and pituatary abnormality; sees endocriniolgist Hyperlipidemia (Acute) Dry eyes (Acute) Cataracts, bilateral (Acute) Closed head injury (Acute) Diarrhea (Acute) DVT prophylaxis (Acute) Anemia (Chronic) Shoulder pain (Acute) Elevated transaminase level (Acute) Community acquired pneumonia (Acute) Ebhja-shktjd-qclf disease complicating stem cell transplant (Acute) 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 Son No problems noted. Daughter No problems noted. Maternal Grandfather , MVA No problems noted. Paternal Grandfather , 76 No problems noted. Maternal Grandmother , 80s Stroke Paternal Grandmother , 94 Stroke Social History Smoking/Tobacco Use Status: Never Second Hand Exposure: No Smoking risk assessment performed?: Yes Alcohol Intake: never Substance use type: does not use Caregiver/Support person: No Household members: spouse Housing: house Do you need help understanding health information?: Never Pets and animals: Yes Pets and animals: dog(s) Sexually active: Yes Do you think of yourself as: straight/heterosexual Current gender identity: female What is your relationship status?: How often do you talk on the phone with friends or family?: three or more times per week How often do you get together with friends or relatives?: decline to answer How often do you attend buddhist or baptism services?: decline to answer Do you belong to any clubs or organized social groups?: no Panel score (0-1 are the most socially isolated patients): 2 What type of physical activity do you participate in: walking and weight lifting Duration: 45-60 minutes/day Frequency: daily Maria Elena/Taoist: Temple Special maria elena needs: No Seatbelt use: always Drive 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 Do you feel safe at home: Yes Do you feel safe in your relationship?: Yes Exam Const General: cooperative and no acute distress HENMT Head: normocephalic and atraumatic Eyes Sclera: normal sclerae Neck Neck: trachea midline Resp Auscultation: egophony left lower, rales bilaterally, no rhonchi and no wheezes Cardio Jugular venous pressure: no JVD Rate: regular rate and not tachycardic Rhythm: regular rhythm Heart Sounds: no gallops, no murmurs and no rubs GI Palpation: soft, not firm, no guarding, no masses, not rigid and nontender Skin General skin exam: no rashes or lesions noted Neuro General: patient alert, patient awake, patient oriented x3 and tone normal Extrem General: no calf tenderness and no edema Psych Appearance: grossly normal Mental Status: mental status grossly normal Speech and Movement: speech and movement normal Course Vital Signs Vital signs: Vital Signs Pulse 108 H 04/28/21 09:28 Respiratory Rate 24 04/28/21 09:28 Blood Pressure 127/63 04/28/21 09:28 Pulse Oximetry 97 04/28/21 09:28 Temperature 36.8 C 04/28/21 09:35 Temperature Source Skin 04/28/21 09:35 Pulse 105 H 04/28/21 10:00 Pulse 106 H 04/28/21 10:10 Respiratory Rate 14 04/28/21 10:10 Respiratory Effort 04/28/21 09:55 Respiratory Depth Normal 04/28/21 09:55 Respiratory Pattern Normal 04/28/21 09:55 Blood Pressure 117/65 04/28/21 10:00 Blood Pressure Mean 77 04/28/21 10:00 Blood Pressure Position Supine 04/28/21 09:35 Pulse Oximetry 98 04/28/21 10:10 Oxygen Delivery Method Nasal Cannula 04/28/21 09:35 Oxygen Flow Rate 3 04/28/21 09:35 Pain Level 1 04/28/21 09:35 Lab/Test Results Lab/Test Results: Laboratory Tests Range/Units 04/28/21 04/28/21 09:45 09:45 WBC (4.4-10.8) 10^3/uL 10.75 RBC (3.93-5.22) 10^6/uL 3.48 L Hgb (11.2-15.7) g/dL 11.5 Hct (36.0-46.0) % 35.3 L MCV (80-95) fL 101.4 H MCH (27.0-33.0) pg 33.0 MCHC (32.0-36.0) % 32.6 RDW (11.7-14.6) % 14.2 Plt Count (130-400) 10^3/uL 429 H MPV (8.0-11.0) fL 8.6 Immature Gran % 0.0 Neutrophils % 84.0 Band Neutrophils % 8 Lymphocytes % 3.0 Monocytes % 3.0 Eosinophils % 2.0 Basophils % 0.0 Nucleated RBC % % 0 Absolute Neutrophils (1.2-6.7) 10^3/uL 9.89 H Absolute Lymphocytes (1.2-3.4) 10^3/uL 0.32 L Absolute Monocytes (0.1-0.8) 10^3/uL 0.32 Absolute Eosinophils (0.0-0.7) 10^3/uL 0.22 Absolute Basophils (0.0-0.2) 10^3/uL 0.00 RBC Morphology Normal Sodium (136-145) mmol/L 137 Potassium (3.5-5.1) mmol/L 3.9 Chloride (98-107) mmol/L 103 Carbon Dioxide (21.0-32.0) mmol/L 28.6 Anion Gap (3-11) mmol/L 5.4 BUN (7-18) mg/dL 12 Creatinine (0.55-1.02) mg/dL 1.0 Estimated GFR/1.73 m2 (mL/min/1.73m2) 53.91 Glucose (74-106) mg/dL 157 H Calcium (8.5-10.1) mg/dL 8.8 Total Bilirubin (0.2-1.0) mg/dL 0.7 AST (15-37) U/L 59 H ALT (14-59) U/L 65 H Alkaline Phosphatase (46-116) U/L 92 Troponin I (<or=60) ng/L < 50 Total Protein (6.4-8.2) g/dL 6.6 Albumin (3.4-5.0) g/dL 3.2 L
[2021-04-28 10:33] LABS: COVID-19 PCR Negative (Negative); Influenza A PCR Negative (Negative); Influenza B PCR Negative (Negative); RSV PCR Negative (Negative)
[2021-04-28 10:35] LABS: Source Nasopharynx
[2021-04-28] MEDS: Omnipaque 350 MG/ML 100 ML BTL IJ (11:04)
--- NOTE | 2021-04-28 11:26 | DI.CT_ITS ---
Exam(s) CT CHEST PE CTA EXAM: CT CHEST PE CTA CLINICAL HISTORY: shortness of breath. TECHNIQUE: Imaging Protocol: CT angiography of the chest was performed using pulmonary embolus grace col. Multi planar reconstructions were performed. CONTRAST MATERIAL: Intravenous: Omnipaque 350 Contrast volume: 59 cc COMPARISON: CT CT CHEST/ABD/PEL WO from 01/05/2020 FINDINGS: CHEST: PULMONARY ARTERIES: There are no intraluminal filling defects to suggest acute pulmonary emboli. LUNGS: There are increasing nodular infiltrates in both lungs. One of these in the right upper lobe is cavitated, measuring 1.5 x 1.5 cm. In the left lower lobe a previously cavitated nodular infiltra te is no longer cavitated and appears unchanged in size.. There are no pleural effusions. New nodula r infiltrate in the sub apical left upper lobe noted as well as slightly lower down the left upper lo be. Also subpleural in the left lower lobe posteriorly there are few small nodular densities now evid ent, not previously present. There are no pleural effusions. MEDIASTINUM: There is no hilar nor mediastinal adenopathy. Visualized thyroid unremarkable. CARDIAC: Heart size is upper normal. There is no pericardial effusion.Caliber of the thoracic aorta is within normal limits. No dissection. There is no significant shift of the interventricular septum. PARTIALLY VISUALIZED UPPERMOST ABDOMEN: No obvious findings OSSEOUS: No significant osseous lesions.. IMPRESSION: 1. No evidence of acute pulmonary emboli. No evidence of pulmonary infarction.No pleural effusions. 2. However, when compared to the prior CT scan of 01/05/2020 there increasing bilateral nodular infil trates as described above. One of the nodular infiltrates which is in the right upper lobe is cavitat ed. This measures 1 5 x 1.5 cm. Main consideration is for infectious/inflammatory versus malignancy. Cannot exclude fungal, given the history here. 3. There is no obvious intrathoracic adenopathy Report called by myself to ER physician. RADIATION DOSE DELIVERED: 451.94mGy.cm Total DLP DATA REPOSITORY: All CT scans at this facility are submitted to the National Radiology Data Registry (NRDR) Dose Index Registry (DIR) with the [employer] ([employer]). RADIATION OPTIMIZATION: All CT scans at this facility use at least one of these dose optimization te chniques: automated exposure control; mA and/or kV adjustment per patient size (includes targeted exa ms where dose is matched to clinical indication); or iterative reconstruction.
[2021-04-28] MEDS: Lactated Ringers 500 ML IV (12:04)
[2021-04-28] MEDS: Amoxicillin 875/Clav. 125 TAB PO (12:24)
[2021-04-28] MEDS: CEFEPIME 2 GM in Normal Saline 100 ML IVPB (13:44)
[2021-04-28] MEDS: Acetaminophen 325 MG TAB PO (16:11)
[2021-04-28] MEDS: Hydrocortisone SOD SUC. 100 MG VIAL 50 MG IVP (16:12)
[2021-04-28 17:18] LABS: Lab Add On Test DONE
[2021-04-28 18:00] LABS: Procalcitonin 0.5 ng/mL
--- NOTE | 2021-04-28 19:08 | W.PM.HP.N ---
Date of service: 04/29/21 Time of Service: 08:12 Assessment and Plan Assessment and plan (1) COPD (chronic obstructive pulmonary disease): Status: Chronic Assessment and plan: Developed as a result of GREG. Continue symbicort and flovent. S/P second infusion of Evusheld. O2 saturations normal on RA. (2) Bronchiolitis obliterans syndrome: Status: Acute Assessment and plan: Will continue home meds: Jakfi, flovent, symbicort, singulair, azithromycin. (3) Diabetes mellitus: Status: Chronic Assessment and plan: Diet controlled. Monitor glucose and use SS insulin prn for elevations while on high dose of insulin. (4) Adrenal insufficiency: Status: Acute Assessment and plan: On hydrocortison routinely. Stress dose IV hydrocortison 50mg IV Q8H. (5) Community acquired pneumonia: Status: Acute Assessment and plan: PNA vs inflammatory process seen on CT. No elevated WBC count. + fever once she was admitted. Procal 0.5. Cont cefepime. Qualifiers: Laterality: left Lung location: lower lobe of lung Qualified Code(s): J18.1 - Lobar pneumonia, unspecified organism (6) Cutaneous T-cell lymphoma: Status: Acute Assessment and plan: She has a first radiation tx scheduled for next week. Qualifiers: Lymphoma site: lower extremity Qualified Code(s): C84.A5 - Cutaneous T-cell lymphoma, unspecified, lymph nodes of inguinal region and lower limb History of Present Illness History of Present Illness Chief Complaint: Feeling generally unwell. 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 She presented to the ED with a general complaint of not feeling well. She did state she had a subject fever, + chills, SOB. + cough with occasional brown sputum; this occurs intermittently even prior to current complaints. Symptoms began the evening before arrival. She had received her first Reclast infusion early that day. She also received her second dose of Evusheld at the same visit to the outpt infusion center at [facility]. She endorses using supplemental O2 that has helped with her SOB. In the ED vitals were: afebrile. Vital Signs Pulse ?108 H ?04/28/21 09:28 Respiratory Rate ?24 ?04/28/21 09:28 Blood Pressure ?127/63 ?04/28/21 09:28 Pulse Oximetry ?97 ?04/28/21 09:28 COVID and influenza testing were negative. WBC count normal. CT chest interpreted by radiology:?IMPRESSION: 1. No evidence of acute pulmonary emboli.? No evidence of pulmonary infarction.No pleural effusions. 2. However, when compared to the prior CT scan of 01/05/2020 there increasing bilateral nodular infiltrates as described above. One of the nodular infiltrates which is in the right upper lobe is cavitated. This measures 1 5 x 1.5 cm. Main consideration is for infectious/inflammatory versus malignancy. Cannot exclude fungal, given the history here. 3. There is no obvious intrathoracic adenopathy She was administered 800ml IV LR. Cefepime iniaited in the ED. Review of Systems All systems reviewed & are unremarkable except as noted in HPI and below PFSH All Active Problems Pulmonary infiltrate (Acute) Cavitary lung disease (Acute) Fever and chills (Acute) COPD (chronic obstructive pulmonary disease) (Chronic) due to GREG Bronchiolitis obliterans syndrome (Acute) Diabetes mellitus (Chronic) Gastroenteritis (Acute) Dehydration (Acute) Adrenal insufficiency (Acute) both adrenal and pituatary abnormality; sees endocriniolgist Hyperlipidemia (Acute) Dry eyes (Acute) Cataracts, bilateral (Acute) Closed head injury (Acute) Diarrhea (Acute) DVT prophylaxis (Acute) Anemia (Chronic) Shoulder pain (Acute) Elevated transaminase level (Acute) Community acquired pneumonia (Acute) [id number] disease complicating stem cell transplant (Acute) 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 Son No problems noted. Daughter No problems noted. Maternal Grandfather , MVA No problems noted. Paternal Grandfather , 76 No problems noted. Maternal Grandmother , 80s Stroke Paternal Grandmother , 94 Stroke Social History Smoking/Tobacco Use Status: Never Second Hand Exposure: No Smoking risk assessment performed?: Yes Alcohol Intake: never Substance use type: marijuana Caregiver/Support person: No Household members: spouse Housing: house Do you need help understanding health information?: Never Pets and animals: Yes Pets and animals: dog(s) Sexually active: Yes Do you think of yourself as: straight/heterosexual Current gender identity: female What is your relationship status?: How often do you talk on the phone with friends or family?: three or more times per week How often do you get together with friends or relatives?: decline to answer How often do you attend samaritan or moravian services?: decline to answer Do you belong to any clubs or organized social groups?: no Panel score (0-1 are the most socially isolated patients): 2 What type of physical activity do you participate in: walking and weight lifting Duration: 45-60 minutes/day Frequency: daily Maria Elena/Jain: Sabianism Special maria elena needs: No Seatbelt use: always Drive intox or ride w/intox cdl company flatbed driver: No Do you feel safe at home: Yes Do you feel safe in your relationship?: Yes Meds Allergies and Home Medications Allergies Allergy/AdvReac Type Severity Reaction Status Date / Time adhesive tape AdvReac Verified 04/28/21 09:40 Home Medications Medication Instructions Recorded Confirmed Type acyclovir 200 mg capsule 800 mg PO BID 11/03/18 04/28/21 History azithromycin 250 mg tablet 250 mg PO DAILY 11/03/18 04/28/21 History benzonatate 100 mg capsule 100 mg PO PRN PRN 11/03/18 04/28/21 History (Cecilio Person) lifitegrast 5 % eye drops in a 1 drp OPHTHALMIC (EYE) BID 11/03/18 04/28/21 History dropperette (Xiidra) montelukast 10 mg tablet 10 mg PO HS 11/03/18 04/28/21 History (Singulair) mupirocin 2 % topical ointment 1 applic TOPICAL PRN PRN 11/03/18 04/28/21 History ondansetron HCl 4 mg tablet 4 mg PO PRN PRN 11/03/18 04/28/21 History (Zofran) pravastatin 10 mg tablet 10 mg PO HS 11/03/18 04/28/21 History ruxolitinib 10 mg tablet (Jakafi) 10 mg PO BID 11/03/18 04/28/21 History triamcinolone acetonide 0.1 % 1 applic TOPICAL PRN PRN 11/03/18 04/28/21 History topical cream budesonide-formoterol HFA 160 2 puff INHALATION BID g 12/02/19 04/28/21 History mcg-4.5 mcg/actuation aerosol inhaler (Symbicort) clobetasol 0.05 % topical gel 1 applic TOPICAL DAILY PRN g 09/19/20 04/28/21 History hydrocortisone 5 mg tablet 5 mg PO .COMPLEX #1 tab 09/19/20 04/28/21 Rx fluticasone propionate 110 2 puff INHALATION BID g 01/03/21 04/28/21 History mcg/actuation HFA aerosol inhaler (Flovent HFA) levalbuterol tartrate 45 2 inh INHALATION Q6H PRN PRN 03/03/21 04/28/21 History mcg/actuation aerosol inhaler calcium carbonate 600 mg-vitamin See Rx Instructions PO DAILY tab 04/04/21 04/28/21 History D3 10 mcg (400 unit) chewable tablet (Calcium 600 with Vitamin D3) cholecalciferol (vitamin D3) 25 25 mcg PO DAILY 04/04/21 04/28/21 History mcg (1,000 unit) capsule hydroxyzine HCl 10 mg tablet 10 mg PO TID PRN #20 tab 04/17/21 04/28/21 Rx metronidazole 1 % topical gel 1 applic TOPICAL DAILY #60 g 04/17/21 04/28/21 Rx (Metrogel) Exam Narrative Exam Narrative: Pt is lying supine in med. Has multiple sheets/blankets on. Const General: cooperative and no acute distress Nutritional Appearance: thin Orientation: alert and oriented x3 Eyes General: appearance normal, both eyes and all related structures Sclera: sclerae normal Resp Effort & Inspection: normal respiratory effort Auscultation: rales Cardio Rate: regular rate Rhythm: regular rhythm Heart Sounds: S1 normal and S2 normal GI Palpation: soft and nontender Auscultation: normal bowel sounds Skin General skin exam: no rashes or lesions noted Extrem General: no pedal edema and no calf tenderness Results Labs Result diagrams: 04/29/21 06:09 04/29/21 06:09 Labs: Laboratory Results - last 24 hr 04/28/21 04/28/21 04/28/21 09:45 09:45 09:45 WBC 10.75 RBC 3.48 L Hgb 11.5 Hct 35.3 L MCV 101.4 H MCH 33.0 MCHC 32.6 RDW 14.2 Plt Count 429 H MPV 8.6 Immature Gran % 0.0 Neutrophils % 84.0 Band Neutrophils % 8 Lymphocytes % 3.0 Monocytes % 3.0 Eosinophils % 2.0 Basophils % 0.0 Nucleated RBC % 0 Absolute Neutrophils 9.89 H Absolute Lymphocytes 0.32 L Absolute Monocytes 0.32 Absolute Eosinophils 0.22 Absolute Basophils 0.00 RBC Morphology Normal Sodium 137 Potassium 3.9 Chloride 103 Carbon Dioxide 28.6 Anion Gap 5.4 BUN 12 Creatinine 1.0 Estimated GFR/1.73 m2 53.91 Glucose 157 H Calcium 8.8 Total Bilirubin 0.7 AST 59 H ALT 65 H Alkaline Phosphatase 92 Troponin I < 50 Total Protein 6.6 Albumin 3.2 L Procalcitonin COVID-19 Source Nasopharynx SARS-CoV-2 (PCR) Negative Influenza Type A (PCR) Negative Influenza Type B (PCR) Negative RSV (PCR) Negative Add-On Test Request 04/28/21 04/28/21 09:45 09:45 WBC RBC Hgb Hct MCV MCH MCHC RDW Plt Count MPV Immature Gran % Neutrophils % Band Neutrophils % Lymphocytes % Monocytes % Eosinophils % Basophils % Nucleated RBC % Absolute Neutrophils Absolute Lymphocytes Absolute Monocytes Absolute Eosinophils Absolute Basophils RBC Morphology Sodium Potassium Chloride Carbon Dioxide Anion Gap BUN Creatinine Estimated GFR/1.73 m2 Glucose Calcium Total Bilirubin AST ALT Alkaline Phosphatase Troponin I Total Protein Albumin Procalcitonin 0.5 COVID-19 Source SARS-CoV-2 (PCR) Influenza Type A (PCR) Influenza Type B (PCR) RSV (PCR) Add-On Test Request DONE Last Vital Signs Temp 38.6 C H 04/28/21 15:45 Pulse 115 H 04/28/21 15:45 Resp 18 04/28/21 15:45 BP 151/78 H 04/28/21 15:45 Pulse Ox 98 04/28/21 15:45
[2021-04-28] MEDS: Pravastatin 20 MG TAB 10 MG PO (19:23)
[2021-04-28] MEDS: Acyclovir 400 MG TAB 800 MG PO (19:23)
[2021-04-28] MEDS: Budesonide/Formoterol 160/4.5 6 GM 60 PUFF INH IH (19:29)
[2021-04-28] MEDS: Mometasone 220 MCG 14 DOSE INHALER IH (19:30)
[2021-04-28] MEDS: Montelukast 10 MG TAB PO (21:28)
[2021-04-29] MEDS: Hydrocortisone SOD SUC. 100 MG VIAL 50 MG IVP (00:06)
[2021-04-29] MEDS: Normal Saline Flush 10 ML SYR IVP (00:06)
[2021-04-29 02:18] VITALS: BP 113/73; PULSE 89; RESP 16; TEMP 36.9; O2SAT 94
[2021-04-29] MEDS: CEFEPIME 2 GM in Normal Saline 100 ML IVPB (02:18)
[2021-04-29 06:44] LABS: HCT 38.3 % (36.0-46.0); HGB 12.1 g/dL (11.2-15.7); MCH 32.4 pg (27.0-33.0); MCHC 31.6 % (32.0-36.0); MCV 102.7 fL (80-95); MPV 8.8 fL (8.0-11.0); Nucleated RBC 0 %; Platelet Count 448 10^3/uL (130-400); RBC 3.73 10^6/uL (3.93-5.22); RDW 14.2 % (11.7-14.6); RDW-SD 53.6 fL; WBC 10.38 10^3/uL (4.4-10.8)
[2021-04-29 07:00] LABS: Absolute Eosinophil Count 0.21 10^3/uL (0.0-0.7); Absolute Monocyte Count 0.42 10^3/uL (0.1-0.8); Absolute Neutrophil Count 9.65 10^3/uL (1.2-6.7); Bands % 8; Diff Comment Manual Differential; RBC Morphology Normal
[2021-04-29 07:05] LABS: ALT 70 U/L (14-59); AST 56 U/L (15-37); Albumin 2.9 g/dL (3.4-5.0); Alkaline Phosphatase 116 U/L (46-116); Anion Gap 6.9 mmol/L (3-11); BUN 12 mg/dL (7-18); Bilirubin, Total 0.4 mg/dL (0.2-1.0); CO2 28.1 mmol/L (21.0-32.0); Calcium 8.5 mg/dL (8.5-10.1); Chloride 105 mmol/L (98-107); Estimated GFR 53.91 (mL/min/1.73m2); Glucose 143 mg/dL (74-106); Potassium 3.6 mmol/L (3.5-5.1); Sodium 140 mmol/L (136-145); Total Protein 6.6 g/dL (6.4-8.2)
[2021-04-29 07:42] VITALS: BP 106/65; PULSE 95; RESP 17; TEMP 36.8; O2SAT 96
[2021-04-29] MEDS: Azithromycin 250 MG TAB PO (07:47)
[2021-04-29] MEDS: Cholecalciferol (Vitamin D3) 1,000 UNIT TAB 1000 UNITS PO (07:48)
[2021-04-29] MEDS: Acyclovir 400 MG TAB 800 MG PO (07:49)
[2021-04-29] MEDS: Budesonide/Formoterol 160/4.5 6 GM 60 PUFF INH IH (07:52)
[2021-04-29] MEDS: Mometasone 220 MCG 14 DOSE INHALER IH (07:53)
--- NOTE | 2021-04-29 09:12 | DSE_ITS ---
Date of service: 04/29/21 Time of Service: 09:12 DS: Diagnosis Discharge Diagnosis (1) COPD (chronic obstructive pulmonary disease): Status: Chronic (2) Bronchiolitis obliterans syndrome: Status: Acute (3) Diabetes mellitus: Status: Chronic (4) Adrenal insufficiency: Status: Acute (5) Community acquired pneumonia: Status: Acute (6) Cutaneous T-cell lymphoma: Status: Acute Discharge Plan Disposition Patient Disposition: HOME Condition: Improving Discharge Details Reason For Visit: Bronchiolitis Obliterans, Pneumonia Admit Date/Time: 04/28/21 14:00 Admit Provider: Dalton Mitchell Attending Provider: Dalton Mitchell Primary Care Provider: Melinda Mix [facility] Course Hospital Course: Follow up with PCP next week. Home Meds and New Rx's Prescriptions: New amoxicillin-pot clavulanate 875-125 mg tablet 1 tab PO BID Qty: 10 0RF Continued hydrocortisone 5 mg tablet 5 mg PO .COMPLEX Qty: 1 0RF Rx Instructions: 5 mg PO 1 tab am and 0.5tab noon; levalbuterol tartrate 45 mcg/actuation HFA aerosol inhaler 2 inh inhalation Q6H PRN PRN0RF cholecalciferol (vitamin D3) 25 mcg (1,000 unit) capsule 25 mcg PO DAILY 0RF Calcium 600 with Vitamin D3 600 mg-10 mcg (400 unit) tablet,chewable See Rx Instructions PO DAILY 0RF Rx Instructions: 2 chews PO daily; metronidazole [Metrogel] 1 % gel 1 applic topical DAILY Qty: 60 1RF hydroxyzine HCl 10 mg tablet 10 mg PO TID PRN (Reason: itching) Qty: 20 0RF Jakafi 10 mg Tablet 10 mg PO BID 0RF montelukast [Singulair] 10 mg Tablet 10 mg PO HS 0RF azithromycin 250 mg Tablet 250 mg PO DAILY 0RF Rx Instructions: prophylaxis acyclovir 200 mg Capsule 800 mg PO BID 0RF pravastatin 10 mg Tablet 10 mg PO HS 0RF Xiidra 5 % Dropperette 1 drp ophthalmic (eye) BID 0RF triamcinolone acetonide 0.1 % Cream 1 applic TOPICAL PRN PRN0RF mupirocin 2 % Ointment 1 applic TOPICAL PRN PRN0RF ondansetron HCl [Zofran] 4 mg Tablet 4 mg PO PRN PRN0RF benzonatate [Tessalon Perles] 100 mg Capsule 100 mg PO PRN PRN0RF budesonide-formoterol [Symbicort] 160-4.5 mcg/actuation HFA aerosol inhaler 2 puff INHALATION BID 0RF clobetasol 0.05 % gel 1 applic TOPICAL DAILY PRN0RF Flovent HFA 110 mcg/actuation HFA aerosol inhaler 2 puff INHALATION BID 0RF Discharge Instructions Activity:: Activity as Tolerated Equipment/Supplies:: No Equipment Needed Diet:: Resume usual diet Discharge Orders Discharge Orders: Discharge Order (Routine); Ordered 04/29/21 Ordered By: Dalton Mitchell DS: Summary Time Spent with Patient providing and/or coordinating discharge services: Greater than 30 minutes Status at Discharge Functional status at discharge: independent ambulation Overall status at discharge: patient is progressing back to baseline Mental Status: mental status grossly normal Speech and Movement: speech and movement normal Mood: congruent mood Affect: normal affect Exam Narrative Exam Narrative: Sitting up in bed. Const General: cooperative and no acute distress Nutritional Appearance: thin Orientation: alert and oriented x3 Eyes General: appearance normal, both eyes and all related structures Sclera: sclerae normal Resp Effort & Inspection: normal respiratory effort Auscultation: rales Cardio Rate: regular rate Rhythm: regular rhythm Heart Sounds: S1 normal and S2 normal GI Palpation: soft and nontender Auscultation: normal bowel sounds Skin General skin exam: no rashes or lesions noted Extrem General: no pedal edema and no calf tenderness Psych Mental Status: mental status grossly normal Speech and Movement: speech and movement normal Mood: congruent mood Affect: normal affect DS: Data Vitals/I&O Vitals and I&O: Vital Signs Temperature 36.9 C 04/29/21 02:18 Temperature Source Skin 04/29/21 02:18 Pulse 89 04/29/21 02:18 Pulse Rhythm Regular 04/29/21 03:52 Pulse 0 L 04/28/21 13:40 Respiratory Rate 16 04/29/21 02:18 Respiratory Effort Non-Labored 04/29/21 03:52 Respiratory Depth Normal 04/29/21 03:52 Respiratory Pattern Normal 04/29/21 03:52 Blood Pressure 113/73 04/29/21 02:18 Blood Pressure Mean 81 04/28/21 14:31 Blood Pressure Position Supine 04/28/21 09:35 Pulse Oximetry 94 04/29/21 02:18 Oxygen Delivery Method Room Air 04/29/21 02:18 Oxygen Flow Rate 0 04/29/21 02:18 Pain Level 0 04/29/21 02:18 Comment 04/28/21 23:55 Intake & Output 04/28/21 04/28/21 04/29/21 11:59 23:59 11:59 Intake Total 600 / 600 100 / 100 Output Total 450 / 450 Balance 150 / 150 100 / 100 Weight 53.524 kg Intake: IV 600 / 600 100 / 100 Output: Urine 450 / 450 Other: Urine Color Yellow Urine Appearance Clear Clear Voiding Methods Toilet Data Completed and Pending Labs on day of discharge: Labs from last 24 hours 04/29/21 04/29/21 04/28/21 06:09 06:09 09:45 WBC 10.38 RBC 3.73 L Hgb 12.1 Hct 38.3 MCV 102.7 H MCH 32.4 MCHC 31.6 L RDW 14.2 Plt Count 448 H MPV 8.8 Immature Gran % 0.0 Neutrophils % 85.0 Band Neutrophils % 8 Lymphocytes % 1.0 Monocytes % 4.0 Eosinophils % 2.0 Basophils % 0.0 Nucleated RBC % 0 Absolute Neutrophils 9.65 H Absolute Lymphocytes 0.10 L Absolute Monocytes 0.42 Absolute Eosinophils 0.21 Absolute Basophils 0.00 RBC Morphology Normal Sodium 140 Potassium 3.6 Chloride 105 Carbon Dioxide 28.1 Anion Gap 6.9 BUN 12 Creatinine 1.0 Estimated GFR/1.73 m2 53.91 Glucose 143 H Calcium 8.5 Total Bilirubin 0.4 AST 56 H ALT 70 H Alkaline Phosphatase 116 Troponin I Total Protein 6.6 Albumin 2.9 L Procalcitonin 0.5 COVID-19 Source SARS-CoV-2 (PCR) Influenza Type A (PCR) Influenza Type B (PCR) RSV (PCR) Add-On Test Request 04/28/21 04/28/21 04/28/21 09:45 09:45 09:45 WBC 10.75 RBC 3.48 L Hgb 11.5 Hct 35.3 L MCV 101.4 H MCH 33.0 MCHC 32.6 RDW 14.2 Plt Count 429 H MPV 8.6 Immature Gran % 0.0 Neutrophils % 84.0 Band Neutrophils % 8 Lymphocytes % 3.0 Monocytes % 3.0 Eosinophils % 2.0 Basophils % 0.0 Nucleated RBC % 0 Absolute Neutrophils 9.89 H Absolute Lymphocytes 0.32 L Absolute Monocytes 0.32 Absolute Eosinophils 0.22 Absolute Basophils 0.00 RBC Morphology Normal Sodium Potassium Chloride Carbon Dioxide Anion Gap BUN Creatinine Estimated GFR/1.73 m2 Glucose Calcium Total Bilirubin AST ALT Alkaline Phosphatase Troponin I Total Protein Albumin Procalcitonin COVID-19 Source Nasopharynx SARS-CoV-2 (PCR) Negative Influenza Type A (PCR) Negative Influenza Type B (PCR) Negative RSV (PCR) Negative Add-On Test Request DONE 04/28/21 09:45 WBC RBC Hgb Hct MCV MCH MCHC RDW Plt Count MPV Immature Gran % Neutrophils % Band Neutrophils % Lymphocytes % Monocytes % Eosinophils % Basophils % Nucleated RBC % Absolute Neutrophils Absolute Lymphocytes Absolute Monocytes Absolute Eosinophils Absolute Basophils RBC Morphology Sodium 137 Potassium 3.9 Chloride 103 Carbon Dioxide 28.6 Anion Gap 5.4 BUN 12 Creatinine 1.0 Estimated GFR/1.73 m2 53.91 Glucose 157 H Calcium 8.8 Total Bilirubin 0.7 AST 59 H ALT 65 H Alkaline Phosphatase 92 Troponin I < 50 Total Protein 6.6 Albumin 3.2 L Procalcitonin COVID-19 Source SARS-CoV-2 (PCR) Influenza Type A (PCR) Influenza Type B (PCR) RSV (PCR) Add-On Test Request 04/28/21 12:16 Blood Blood Culture - Pending 04/28/21 12:07 Blood Blood Culture - Pending Preliminary micro results at discharge 04/28/21 12:16 Blood Culture - Pending Blood 04/28/21 12:07 Blood Culture - Pending Blood [facility] All Active Problems Pulmonary infiltrate (Acute) Cavitary lung disease (Acute) Fever and chills (Acute) COPD (chronic obstructive pulmonary disease) (Chronic) due to GREG Bronchiolitis obliterans syndrome (Acute) Diabetes mellitus (Chronic) Gastroenteritis (Acute) Dehydration (Acute) Adrenal insufficiency (Acute) both adrenal and pituatary abnormality; sees endocriniolgist Hyperlipidemia (Acute) Dry eyes (Acute) Cataracts, bilateral (Acute) Closed head injury (Acute) Diarrhea (Acute) DVT prophylaxis (Acute) Anemia (Chronic) Shoulder pain (Acute) Elevated transaminase level (Acute) Community acquired pneumonia (Acute) [id number] disease complicating stem cell transplant (Acute) 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 Son No problems noted. Daughter No problems noted. Maternal Grandfather , MVA No problems noted. Paternal Grandfather , 76 No problems noted. Maternal Grandmother , 80s Stroke Paternal Grandmother , 94 Stroke Social History Smoking/Tobacco Use Status: Never Second Hand Exposure: No Smoking risk assessment performed?: Yes Alcohol Intake: never Substance use type: marijuana Caregiver/Support person: No Household members: spouse Housing: house Do you need help understanding health information?: Never Pets and animals: Yes Pets and animals: dog(s) Sexually active: Yes Do you think of yourself as: straight/heterosexual Current gender identity: female What is your relationship status?: How often do you talk on the phone with friends or family?: three or more times per week How often do you get together with friends or relatives?: decline to answer How often do you attend jainism or hoahaoism services?: decline to answer Do you belong to any clubs or organized social groups?: no Panel score (0-1 are the most socially isolated patients): 2 What type of physical activity do you participate in: walking and weight lifting Duration: 45-60 minutes/day Frequency: daily Maria Elena/Mandaen: Christianity Special maria elena needs: No Seatbelt use: always Drive intox or ride w/intox services delivery driver: No Do you feel safe at home: Yes Do you feel safe in your relationship?: Yes
[2021-04-29] MEDS: Hydrocortisone 10 MG TAB 15 MG PO (09:41)
== END 2021-04-29 11:01 | disposition home or self-care (01) | DRG 190 ==
LOC: ER 14:38 → MS 15:19
PROVIDERS: Admitting Provider Family Medicine; Emergency Provider Student in an Organized Health Care Education/Training Program; PCP Family Medicine; Visit Provider Family Medicine
DX: J44.0 Chronic obstructive pulmonary disease with (acute) lower respiratory infection (principal); J18.9 Pneumonia, unspecified organism; C84.A5 Cutaneous T-cell lymphoma, unspecified, lymph nodes of inguinal region and lower limb; E27.40 Unspecified adrenocortical insufficiency; T86.09 Other complications of bone marrow transplant; D89.811 Chronic graft-versus-host disease; E11.9 Type 2 diabetes mellitus without complications; J84.89 Other specified interstitial pulmonary diseases; D64.9 Anemia, unspecified; E78.5 Hyperlipidemia, unspecified; H04.129 Dry eye syndrome of unspecified lacrimal gland; I48.0 Paroxysmal atrial fibrillation; Z86.73 Personal history of transient ischemic attack (TIA), and cerebral infarction without residual deficits; Z85.3 Personal history of malignant neoplasm of breast
CPT/HCPCS: 36415; 71275; 80053; 84145; 87040; 87637; 93005; 96361; 96365; 99285; 84484; 85025; 87070; 87205; 93010; 99223; 99239; J1720; J3490

== ENCOUNTER 2021-05-03 18:03 | Outpatient (REF) | payer OTHER, SELFPAY ==
[2021-05-03 20:55] LABS: ESR 43 mm/hr (0-30)
[2021-05-04 17:57] LABS: CRP, High Sensitivity >15.00 mg/L (See Note)
[2021-05-06 14:47] LABS: Fungitell Qualitative Positive (Negative); Fungitell Quantitative Value 272 pg/mL (<60 pg/mL)
[2021-05-07 15:17] LABS: Blastomyces Ag Result Not Detected; Blastomyces Ag Value Not Detected
== END 2021-05-03 18:04 | disposition home or self-care (01) ==
LOC: LBN 18:03
PROVIDERS: PCP Family Medicine; Visit Provider Student in an Organized Health Care Education/Training Program
DX: J98.4 Other disorders of lung (principal)
CPT/HCPCS: 85652; 86141; 87305; 87449; 86606; 87385

== ENCOUNTER 2021-05-04 18:52 | Outpatient (REF) | payer OTHER, SELFPAY ==
[2021-06-02 13:08] LABS: Fungus Smear No Fungi Seen
== END 2021-05-04 18:53 | disposition home or self-care (01) ==
LOC: LBN 18:52
PROVIDERS: PCP Family Medicine; Visit Provider Student in an Organized Health Care Education/Training Program
DX: J98.4 Other disorders of lung (principal)
CPT/HCPCS: 87102; 87206